=== PATIENT | male | born 1945 | race Caucasian/White ===

== ENCOUNTER 2021-08-10 10:48 | Emergency (ER) | payer OTHER, MEDICARE, BC, SELFPAY ==
--- NOTE | ~2021-08-10 | XR_ITS ---
EXAMINATION: XR hand LT min 3V DATE: 08/10/2021 11:14 INDICATION: Dog bite wound to the left fifth digit TECHNIQUE: Posteroanterior, oblique and lateral views of the left hand were obtained. COMPARISON: None. FINDINGS: Alignment is normal. No fracture. Polyarticular osteoarthritis, severe at the first carpal metacarpal joint, moderate severity at the second and third metacarpophalangeal joints and mild at the distal r adioulnar, wrist, midcarpal, triscaphe and multiple metacarpophalangeal and interphalangeal joints. C ouple likely degenerative loose osteochondral bodies at the palmar recess of the wrist joint and at t he radial and ulnar sides of the first carpometacarpal joint. Soft tissue swelling and associated ski n laceration about the distal aspect of the left fifth distal phalanx. No radiopaque foreign bodies. Soft tissues are unremarkable. IMPRESSION: 1. Soft tissue swelling and laceration at the proximal aspect of the left fifth digit. No acute osseo us abnormality or radiopaque foreign bodies. 2. Polyarticular osteoarthritis at the left hand and wrist, severe at the first carpometacarpal joint , moderate at the second and third metacarpophalangeal joints and otherwise mild. Reviewed, dictated and finalized at location B. IMPRESSION: 1. Soft tissue swelling and laceration at the proximal aspect of the left fifth digit. No acute osseous abnormality or radiopaque foreign bodies. 2. Polyarticular osteoarthritis at the left hand and wrist, severe at the first carpometacarpal joint, moderate at the second and third metacarpophalangeal jeb ints and otherwise mild.
[2021-08-10 10:49] VITALS: BP 150/77; PULSE 85; RESP 18; TEMP 36.2; O2SAT 100
--- NOTE | 2021-08-10 11:02 | ED.ANIMALBIT ---
HPI - Animal Bite General Chief Complaint: Animal Bite Stated Complaint: dog bite Time Seen by Provider: 08/10/21 10:54 History of Present Illness HPI narrative: 76-year-old male presents to the emergency room for evaluation of a dog bite to his left hand. Patient states his neighbors dog bit him in the left hand approximately 1 hour prior to arrival. Patient states the animals vaccinations are up-to-date. Related Data Home Medications Medication Instructions Recorded Confirmed aspirin 81 mg tablet,delayed 81 mg PO DAILY 03/25/20 04/01/21 release multivitamin 1 tablet PO DAILY 03/25/20 04/01/21 omega-3 fatty acids 1,000 mg 1,000 mg PO DAILY 03/25/20 04/01/21 capsule rivaroxaban 20 mg tablet (Xarelto) 20 mg PO DAILY 03/25/20 04/01/21 glucosam 750 mg-chondroi 100 1 tablet PO DAILY 10/06/20 04/01/21 mg-hyalur 1.65 mg-CF borate 108 mg tablet ([email or web address]) Allergies Allergy/AdvReac Type Severity Reaction Status Date / Time No Known Allergies Allergy Unknown Verified 04/01/21 10:04 Review of Systems Review of Systems: CONSTITUTIONAL: Denies fever, chills, or sweats. EYES: Denies visual changes, redness, or discharge. ENT: Denies rhinorrhea, congestion, sore throat, or otalgia. CARDIOVASCULAR: Denies chest pain, palpitations, or edema. RESPIRATORY: Denies cough or dyspnea. GASTROINTESTINAL: Denies abdominal pain, nausea, vomiting, or diarrhea. GENITOURINARY: Denies dysuria or hematuria. SKIN: Reports puncture wounds to left hand, laceration to left fifth digit MUSCULOSKELETAL: Denies back pain, joint pain, or myalgia. NEUROLOGIC: Denies headache, numbness, dizziness, or weakness. PSYCHIATRIC: Denies anxiety or depression. 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 HEAD: Normocephalic, atraumatic. EYES: PERRLA and EOMI. ENT: Nares clear, no rhinorrhea or epistaxis. Mucous membranes moist. Oropharynx without tonsillar hypertrophy exudate or other lesions. Bilateral TMs pearly lee nonbulging NECK: Supple. No adenopathy or masses. No carotid bruits or JVD CHEST: Clear to auscultation. No respiratory distress. No wheezes rales or rhonchi HEART: Regular rate and rhythm. No murmur heard. Normal peripheral pulses. ABDOMEN: Soft, nontender, nondistended, normal active bowel sounds. EXTREMITIES: Normal range of motion. No edema. SKIN: left hand: 4 puncture wounds to the dorsal surface; left 5th finger: 2.5 cm curved laceration to the dorsal surface over the PIP joint, no joint laxity, full range of motion NEURO: No focal deficits. Alert and oriented x3. PSYCH: Normal mood and affect. Course Vital Signs Vital signs: Vital Signs Temperature 36.2 C L 08/10/21 10:49 Pulse Rate 85 08/10/21 10:49 Respiratory Rate 18 08/10/21 10:49 Blood Pressure 150/77 H 08/10/21 10:49 Pulse Oximetry 100 08/10/21 10:49 Oxygen Delivery Room Air 08/10/21 10:49 Temperature 36.2 C L 08/10/21 10:49 Pulse Rate
[2021-08-10] MEDS: LIDOCAINE HCL 1% PF 30 ML VIAL (11:53)
[2021-08-10] MEDS: TETANUS,DIPHTHERIA,AC PERTUSSIS ADULT (0.5 ML) BOOSTRIX IM (12:01)
[2021-08-10 12:29] VITALS: BP 130/90; PULSE 76; RESP 18; O2SAT 99
--- NOTE | 2021-09-16 11:14 | PC.NURSE ---
LATE ENTRY This note is being entered to document information to the patient's record. The following information was omitted on [08/10/2021], by [Lynsey rubin RN]. Location verified to be Left hand injury not right as documented under wound injury assessment
== END 2021-08-10 12:31 | disposition home or self-care (01) ==
PROVIDERS: Emergency Provider Nurse Practitioner Family; PCP Family Medicine
DX: S61.257A Open bite of left little finger without damage to nail, initial encounter (principal); Z23 Encounter for immunization; I48.91 Unspecified atrial fibrillation; I25.10 Atherosclerotic heart disease of native coronary artery without angina pectoris; E78.5 Hyperlipidemia, unspecified; I10 Essential (primary) hypertension; N40.0 Benign prostatic hyperplasia without lower urinary tract symptoms; M19.90 Unspecified osteoarthritis, unspecified site; Z79.82 Long term (current) use of aspirin; Z95.1 Presence of aortocoronary bypass graft; Z87.891 Personal history of nicotine dependence; W54.0XXA Bitten by dog, initial encounter
CPT/HCPCS: 12002; 73130; 90471; 90715; 99283

== ENCOUNTER 2022-01-26 12:33 | Outpatient (CLI) | payer MEDICARE, BC, SELFPAY ==
--- NOTE | ~2022-01-26 | XR_ITS ---
EXAMINATION: XR chest 2V DATE: 01/26/2022 12:52 INDICATION: Cough, unspecified TECHNIQUE: PA and lateral views of the chest are obtained. COMPARISON: 12/16/2008 FINDINGS: There are minimal airspace opacities of the left lung base. No pleural effusion or pneumoth orax. The cardiomediastinal silhouette is normal. There is moderate thoracic spondylosis. Median ster notomy wires and mediastinal surgical clips are seen, likely from prior coronary artery bypass grafti ng. Cardiac valve repair is also noted. IMPRESSION: 1. Left basilar airspace opacity, likely atelectasis. Reviewed, dictated and finalized at location B. EACH LIBRARIAN
== END 2022-01-26 12:34 | disposition home or self-care (01) ==
PROVIDERS: PCP Family Medicine; Visit Provider Nurse Practitioner
DX: R05.9 Cough, unspecified (principal); R91.8 Other nonspecific abnormal finding of lung field
CPT/HCPCS: 71046

== ENCOUNTER 2022-01-26 12:58 | Outpatient (CLI) | payer MEDICARE, BC, SELFPAY ==
--- NOTE | 2022-01-26 14:08 | ECG_ITS ---
Measurements Intervals [place] Rate: 69 P: [place]: 0 QRS: -32 QRSD: 118 T: 68 QT: 414 QTc: 446 Interpretive Statements ATRIAL FLUTTER/TACHYCARDIA LEFT AXIS DEVIATION INCOMPLETE RIGHT BUNDLE BRANCH BLOCK DELAYED PRECORDIAL R/S TRANSITION BORDERLINE ST-T WAVE ABNORMALITY- HIGH LATERAL LEADS BASELINE ARTIFACT- I, II, III, AVR, AVL, AVF ABNORMAL ECG NO PREVIOUS ECG AVAILABLE FOR COMPARISON Electronically Signed On 01-26-2022 14:30:55 HOUSEKEEPING ROOM ATTENDANT by Mitch Ann D.O.
[2022-01-26 14:34] LABS: Hematocrit 48.9 % (42.0-52.0); Hemoglobin 15.7 g/dL (14.0-18.0); Mean Corpuscular HGB Conc 32.1 g/dl (32-36); Mean Corpuscular Hemoglobin 29.2 pg (26-34); Mean Corpuscular Volume 91.1 fl (80-100); Mean Platelet Volume 10.3 fl (7.4-10.4); Platelet Count Result 217 k/mm3 (150-375); Red Blood Count 5.37 M/mm3 (4.6-6.20); Red Cell Distribution Width 13.6 % (11.5-14.5)
[2022-01-26 14:38] LABS: Albumin Level 4.6 g/dL (3.5-5.1); Anion Gap 11 mmol/L (8-16); Blood Urea Nitrogen 17 mg/dL (9-20); Calcium 9.1 mg/dL (8.4-10.2); Carbon Dioxide 27 mmol/L (22-30); Chloride 100 mmol/L (98-107); Estimated Glomerular Filt Rate > 60; Glucose 91 mg/dL (65-110); Potassium 4.5 mmol/L (3.4-5.0); Sodium 138 mmol/L (137-145)
[2022-01-26 14:40] LABS: Urine Cotinine NEGATIVE
[2022-01-26 14:42] LABS: Hemoglobin A1C 5.7 % (<5.7)
[2022-01-26 15:23] LABS: Basophils Absolute Manual 0.07 K/mm3 (0.0-0.1); Basophils Percent Manual 1 % (0-1); Eosinophils Absolute Manual 1.12 K/mm3 (0.02-0.5); Eosinophils Percent Manual 16 % (0-4); Monocytes Absolute Manual 0.91 K/mm3 (0.1-0.90); Monocytes Percent Manual 13 % (3-9); Neutrophils Percent Manual 50 % (46-73); Total Cells Counted 100
[2022-01-26 15:24] LABS: Platelet Estimate Adequate (Adequate); Schistocytes None Seen (NORMAL)
== END 2022-01-26 12:59 | disposition home or self-care (01) ==
LOC: ANHSURGERY 13:03
PROVIDERS: PCP Family Medicine; Visit Provider Orthopaedic Surgery
DX: M19.90 Unspecified osteoarthritis, unspecified site (principal); I10 Essential (primary) hypertension; Z01.818 Encounter for other preprocedural examination; I45.10 Unspecified right bundle-branch block
CPT/HCPCS: 71046; 80048; 80307; 82040; 83036; 85025; 87081; 93005

== ENCOUNTER 2022-02-23 09:16 | Outpatient (CLI) | payer MEDICARE, BC, SELFPAY | END 2022-02-23 09:17 | disposition home or self-care (01) | PROVIDERS: PCP Family Medicine; Visit Provider Orthopaedic Surgery | DX: M17.11 Unilateral primary osteoarthritis, right knee (principal); Z01.818 Encounter for other preprocedural examination | CPT/HCPCS: 36415; 86850; 86900; 86901 ==

== ENCOUNTER 2022-03-02 01:38 | Day surgery (SDC) | payer MEDICARE, BC, SELFPAY ==
[2022-01-26 13:26] VITALS: BP 139/70; PULSE 79; RESP 16; TEMP 36.5; O2SAT 99; BMI 30.9
--- NOTE | 2022-01-26 13:42 | PC.NURSE ---
Report to the Outpatient Waiting Room, entrance under the green pavilion located off [facility], at time _0600_ on date _[id number]_. Planned Procedure Time: _0730_. Time changes happen often and if your time is changed the preop area will call you the afternoon before. - You and your visitor will be asked to self-screen and do not enter if you have any COVID symptoms. - We encourage only one visitor and NO visitors under age 16 are allowed at this time. Your visitor will receive communication by the phone number that is given day of service. - The patient visitor is requested to social distance or may leave the building when not with patient due to restrictions. - A mask is required within the hospital. Patients may have clear liquids (water, carbonated beverages, clear teas, apple juice) until 3 hours prior to surgery with a maximum of 20 ounces. - No food from midnight until time of surgery Take the following medications with a SIP of water the morning of surgery: None Medications to discontinue per physician __All vitamins and supplements Date to take last ysym___[id number] Stop Xarelto 02-04-2022 Please no make-up, nail hong konger, hairspray, perfume, deodorant, or body powder the day of surgery. No jewelry (including any body piercings) or valuables the day of surgery, leave them at home. Please take a shower or bath the night before, or the morning of, surgery with an antibacterial soap. Wear comfortable, loose fitting clothing. - Jewelry must be removed prior to entering the operating room. Rings and piercings that are not removed may be cut off. - The hospital will not accept responsibility for valuables. - Please leave all valuables, including medications, at home the day of surgery. If you are going home after surgery, a licensed deliver driver must drive you home. - NO public transportation without another adult. - We recommend that an adult stay with you for 24 hours following discharge. - We also recommend that you do not drive, make important decision, drink alcoholic beverages, or take any drugs that were not prescribed by your health care provider for at least 24 hours after your discharge time. Follow any additional instructions given to you from your surgeon. If you or anyone in your household have experienced Covid symptoms in the past week, please notify your surgeon or the nurse liaison at the phone number below for possible testing. Telephone instructions given to _Patient___and asked if any additional questions and then verbalized understanding. Patient advised to call surgeon office or pre surgery nurse liaison [phone] if any additional questions.
--- NOTE | 2022-01-26 14:15 | PC.NURSE ---
Encouraged patient to call Heart doctor and OK stopping Xarelto 5 days before surgery as instructed and to notify Dr Holman's office if this is a problem.
--- NOTE | 2022-02-16 11:41 | PC.NURSE ---
Report to the Outpatient Waiting Room, entrance under the green pavilion located off [address], at [id number] on date __02/25/22 . Planned Procedure Time: __1200 . Time changes happen often and if your time is changed the preop area will call you the afternoon before. - You and your visitor will be asked to self-screen and do not enter if you have any COVID symptoms. - Only one visitor is requested with a max of two and NO children visitors are allowed at this time. - The patient visitor may be requested to leave or wait in car when not with patient due to distancing restrictions. - A mask is optional within the hospital. Patients may have clear liquids (water, carbonated beverages, clear teas, apple juice) until 3 hours prior to surgery with a maximum of 20 ounces. - No food from midnight until time of surgery - Infants may have breast milk until 4 hours before surgery, formula 6 hours prior to surgery. - Children will be allowed to drink immediately following surgery. If applicable, please bring a bottle or sippy cup to assist with drinking. Juice, water, soda, and popsicles are readily available. For infants on formula, please bring formula the day of surgery. Pacifiers are allowed. Take the following medications with a SIP of water the morning of surgery: ___NONE Medications to discontinue per physician ASPIRIN 5 DAYS PRE OP PER DR LOZANO AND XARELTO 3 DAYS PRE OP PER DR LOZANO. ALL VITAMINS AND SUPPLEMENTS 3 DAYS PRE OP Date to take last dose_ASPIRIN 02/19/22 XARELTO AND VIT/SUPP 02/21/22 TOTAL JOINT CLASS 02/23/22 AT 10 AM Please no make-up, nail sierra le[place]an, hairspray, perfume, deodorant, or body powder the day of surgery. No jewelry (including any body piercings) or valuables the day of surgery, leave them at home. Please take a shower or bath the night before, or the morning of, surgery with an antibacterial soap. Wear comfortable, loose fitting clothing. Children are encouraged to wear pajamas. - Jewelry must be removed prior to entering the operating room. Rings and piercings that are not removed may be cut off. - The hospital will not accept responsibility for valuables. - Please leave all valuables, including medications, at home the day of surgery. If you are going home after surgery, a licensed special education bus driver must drive you home. - NO public transportation without another adult if you receive anesthesia. - We recommend that an adult stay with you for 24 hours following discharge. - We also recommend that you do not drive, make important decision, drink alcoholic beverages, or take any drugs that were not prescribed by your health care provider for at least 24 hours after your discharge time. For Pediatric surgeries, we recommend two adults accompany the child home. Follow any additional instructions given to you from your surgeon. If you or anyone in your household have experienced Covid symptoms in the past week, please notify your surgeon or the nurse liaison at the phone number below for possible testing. Telephone instructions given to and asked if any additional questions and then verbalized understanding. Patient advised to call surgeon office or pre surgery nurse liaison [phone] if any additional questions.
--- NOTE | 2022-02-16 11:54 | PC.NURSE ---
PT STATES NO CHANGE IN HEALTH HX SINCE LAST INTERVIEW ON 01/26/22
--- NOTE | 2022-02-22 15:13 | PM.IMHP ---
H&P: HPI History of Present Illness Date/Time: 02/22/22 15:13 Chief Complaint: The patient is a 76-year-old male who sees Dr. Holman regarding his right knee. The patient has a chronic ongoing history of pain localized to the right knee this is due to primary osteoarthritis. He has aching pain worse with activity somewhat relieved by rest. The patient has startup pain rest pain and night pain cannot stand or walk for long periods. Notes mechanical symptoms occasional swelling over the years he has tried conservative measures including cortisone gel shots therapy and anti-inflammatory medication without significant long-term relief. X-rays do show advanced primary osteoarthritis which is near [id number] in the medial and patellofemoral compartments. At this point the patient has discussed further treatment options in detail with Dr. Holman he would now like to proceed with a right total knee arthroplasty. Review of Systems Review of Systems: [place] review of systems otherwise negative [facility] Past Medical History Medical History Atrial fibrillation BPH (benign prostatic hyperplasia) CAD in [place] artery Dyslipidemia Environmental allergies Essential (primary) hypertension Osteoarthritis Surgical History Surgical History History of arthroscopy of right knee 1990s - Meniscus repair 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 History of exploratory laparotomy 1980s History of mitral valve repair Family History Family History Sibling Depression Mother Hypertension Father Cerebrovascular accident Family history of malignant neoplasm Social History Social History Social History: Caffeine-coffee Smoking packs per day: 1 Smoking cigarettes per day: 20.0 Years smoked: 16 Smoking pack-years: 16.00 Smoking status: Former smoker Tobacco type: cigarettes Smokeless tobacco user: chewing tobacco Second hand tobacco smoke exposure: No Smoking end date: 01/26/82 Additional smoking assessment comments: Lip tobacco 16 years after quit smoking. Alcohol intake: current Drinks per week: 1 Alcohol use details: occasionally Substance use: never Substance use type: does not use Gender identity (if verbalized by the patient): Male Sexual Orientation (if Verbalized by the Patient): Straight or Heterosexual Spiritual care concerns: No Meds Home Medications and Allergies Home Medications Medication Instructions Recorded Confirmed Type aspirin 81 mg tablet,delayed 81 mg PO DAILY 03/25/20 02/16/22 History release multivitamin 1 tablet PO DAILY 03/25/20 02/16/22 History omega-3 fatty acids 1,000 mg 1,000 mg PO DAILY 03/25/20 02/16/22 History capsule rivaroxaban 20 mg tablet (Xarelto) 20 mg PO DAILY 03/25/20 02/16/22 History glucosam 750 mg-chondroi 100 1 tablet PO DAILY 10/06/20 02/16/22 History mg-hyalur 1.65 mg-CF borate 108 mg tablet ([employer]) tamsulosin 0.4 mg capsule (Flomax) 0.4 mg PO DAILY #90 caps 08/18/21 02/16/22 Rx dutasteride 0.5 mg capsule 0.5 mg PO DAILY 09/30/21 02/16/22 History potassium citrate 99 mg capsule 99 mg PO DAILY 09/30/21 02/16/22 History losartan 50 mg tablet 50 mg PO DAILY #90 tabs 12/08/21 02/16/22 Rx atorvastatin 20 mg tablet 20 mg PO QHS #90 tabs 12/16/21 02/16/22 Rx acetaminophen 325 mg tablet 650 mg PO QAM 01/26/22 02/16/22 History fluticasone propionate 50 2 spray intranasal DAILY #16 grams 01/27/22 02/16/22 Rx mcg/actuation nasal spray,suspension (Flonase Allergy Relief) loratadine 10 mg tablet (Claritin) 10 mg PO DAILY #90 tabs 01/27/22 02/16/22 Rx Allergies Allergy/AdvReac Type Severity Reaction Status Date / Time No Known Allergies Allergy Unknown Verified 02/16/22 11:37 Exam Mason
--- NOTE | 2022-02-25 10:13 | PC.NURSE ---
Report to the Outpatient Waiting Room, entrance under the green pavilion located off [facility], at time __10:00am on date _03/02/22 . Planned Procedure Time: __12:00pm . Time changes happen often and if your time is changed the preop area will call you the afternoon before. - You and your visitor will be asked to self-screen and do not enter if you have any COVID symptoms. - Only one visitor is requested with a max of two and NO children visitors are allowed at this time. - The patient visitor may be requested to leave or wait in car when not with patient due to distancing restrictions. - A mask is optional within the hospital. Patients may have clear liquids (water, carbonated beverages, clear teas, apple juice) until 3 hours prior to surgery with a maximum of 20 ounces. - No food from midnight until time of surgery Take the following medications with a SIP of water the morning of surgery: ____NONE Medications to discontinue per physician ___HOLD ASPIRIN PER DR LOZANO 5 DAYS PRE-OP- LAST DOSE 02/24/22, XERALTO 3 DAYS PRE-OP PER DR LOZANO- LAST DOSE 02/26/22, HOLD ALL VITAMINS/SUPPLEMENTS 3 DAYS PRE-OP- LAST DOSE 02/26/22 Please no make-up, nail [place]er, hairspray, perfume, deodorant, or body powder the day of surgery. No jewelry (including any body piercings) or valuables the day of surgery, leave them at home. Please take a shower or bath the night before, or the morning of, surgery with an antibacterial soap. Wear comfortable, loose fitting clothing. Children are encouraged to wear pajamas. - Jewelry must be removed prior to entering the operating room. Rings and piercings that are not removed may be cut off. - The hospital will not accept responsibility for valuables. - Please leave all valuables, including medications, at home the day of surgery. If you are going home after surgery, a licensed patrol driver must drive you home. - NO public transportation without another adult if you receive anesthesia. - We recommend that an adult stay with you for 24 hours following discharge. - We also recommend that you do not drive, make important decision, drink alcoholic beverages, or take any drugs that were not prescribed by your health care provider for at least 24 hours after your discharge time. Follow any additional instructions given to you from your surgeon. If you or anyone in your household have experienced Covid symptoms in the past week, please notify your surgeon or the nurse liaison at the phone number below for possible testing. Telephone instructions given to _PATIENT and asked if any additional questions and then verbalized understanding. Patient advised to call surgeon office or pre surgery nurse liaison [phone] if any additional questions.
--- NOTE | 2022-02-25 10:16 | PC.NURSE ---
PATIENT RESCHEDULED R/T HIGH CENSUS ON FLOOR/NO BED AVAILABLE. PT DENIES ANY CHANGE IN MEDS, ALLERGIES OR PMH. PRE-OP INSTRUCTIONS GIVEN, PT RELAYS UNDERSTANDING.
--- NOTE | 2022-03-01 13:35 | WPDANESEPPF ---
Anes - Initial Pre Proc Eval Procedure: Operation Date: 03/02/22 12:00 Proposed Procedures p Right Total Knee Arthroplasty - Steve Holman MD Date/Time: 03/01/22 13:35 Surgeon: Steve Holman MD Pre Op Diagnosis: O.A. Right Knee Patient Data Age: 76 Gender: M Height: 1.83 m Weight: 103.4 kg Last Vital Signs Temp 36.5 C 01/26/22 13:26 Pulse 79 01/26/22 13:26 Resp 16 01/26/22 13:26 BP 139/70 01/26/22 13:26 Pulse Ox 99 01/26/22 13:26 O2 Del Method Room Air 01/26/22 13:26 Allergies Allergy/AdvReac Type Severity Reaction Status Date / Time No Known Allergies Allergy Unknown Verified 02/25/22 10:06 Home Medications Medication Instructions Recorded Confirmed Type aspirin 81 mg tablet,delayed 81 mg PO DAILY 03/25/20 02/25/22 History release multivitamin 1 tablet PO DAILY 03/25/20 02/25/22 History omega-3 fatty acids 1,000 mg 1,000 mg PO DAILY 03/25/20 02/25/22 History capsule rivaroxaban 20 mg tablet (Xarelto) 20 mg PO DAILY 03/25/20 02/25/22 History glucosam 750 mg-chondroi 100 1 tablet PO DAILY 10/06/20 02/25/22 History mg-hyalur 1.65 mg-CF borate 108 mg tablet ([email or web address]) tamsulosin 0.4 mg capsule (Flomax) 0.4 mg PO DAILY #90 caps 08/18/21 02/25/22 Rx dutasteride 0.5 mg capsule 0.5 mg PO DAILY 09/30/21 02/25/22 History potassium citrate 99 mg capsule 99 mg PO DAILY 09/30/21 02/25/22 History losartan 50 mg tablet 50 mg PO DAILY #90 tabs 12/08/21 02/25/22 Rx atorvastatin 20 mg tablet 20 mg PO QHS #90 tabs 12/16/21 02/25/22 Rx acetaminophen 325 mg tablet 650 mg PO QAM 01/26/22 02/25/22 History fluticasone propionate 50 2 spray intranasal DAILY #16 grams 01/27/22 02/25/22 Rx mcg/actuation nasal spray,suspension (Flonase Allergy Relief) loratadine 10 mg tablet (Claritin) 10 mg PO DAILY #90 tabs 01/27/22 02/25/22 Rx ECG: Date of Service: 01/26/22 Procedure(s): CA 12 lead EKG Accession Number(s): [id number] cc: ~ ? Measurements Intervals? [place]? Rate: ? 69 ? P:? [place]: ? 0? QRS:? -32 QRSD: ? 118? T:? 68 QT: ? 414? QTc:? 446? Interpretive Statements ATRIAL FLUTTER/TACHYCARDIA LEFT AXIS DEVIATION INCOMPLETE RIGHT BUNDLE BRANCH BLOCK DELAYED PRECORDIAL R/S TRANSITION BORDERLINE ST-T WAVE ABNORMALITY- HIGH LATERAL LEADS BASELINE ARTIFACT- I, II, III, AVR, AVL, AVF ABNORMAL ECG NO PREVIOUS ECG AVAILABLE FOR COMPARISON Electronically Signed On 01-26-2022 14:30:55 EXCELLENCE COACH by Mitch Ann D.O. Results Review: All pre-operative results and documents have been reviewed as part of the pre-operative evaluation. [facility] Past Medical History Medical History Atrial fibrillation BPH (benign prostatic hyperplasia) CAD in [place] artery Dyslipidemia Environmental allergies Essential (primary) hypertension Osteoarthritis Surgical History Surgical History History of arthroscopy of right knee 1990s - Meniscus repair 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 History of exploratory laparotomy 1980s History of mitral valve repair Family History Family History Sibling Depression Mother Hypertension Father Cerebrovascular accident Family history of malignant neoplasm Social History Social History Social History: Caffeine-coffee Smoking packs per day: 1 Smoking cigarettes per day: 20.0 Years smoked: 16 Smoking pack-years: 16.00 Smoking status: Former smoker Tobacco type: cigarettes Smokeless tobacco user: chewing tobacco Second
--- NOTE | 2022-03-01 13:37 | WPDANESPNB ---
Anes - Peripheral Nerve Block Date/Time: 03/01/22 13:37 I have discussed with the patient/family/POA the placement of a peripheral nerve block for post-operative pain management, including associated risks, benefits, complications, and side effects. Alternative methods of post-operative analgesia were detailed. Questions were solicited and answers provided to the satisfaction of the patient/family/POA. Time-Out: A pre-procedural Time-Out was completed immediately before starting the procedure and confirmed: Patient Identification, Site, Procedure, Patient Position and the Availability of Requisite Equipment. Clinical Indications: Acute post-operative pain management requested by the operative surgeon. Nerve Block Insertion Note Anes-nerve block: adductor canal Patient position: supine Skin prep: chlorhexidine Needle: 22 gauge, stimulating, insulated echogenic needle. Needle length: 80 mm Technique: ultrasound Technique comment: in plane Injectate: bupivacaine 0.25% with epi 5 mcg/ml (30cc) Observations: tolerated well Complications: none
--- NOTE | 2022-03-02 06:55 | WPDHPUPDATE1 ---
History and Physical Update Update Date/Time: 03/02/22 06:55 History and Physical has been reviewed, including an updated exam of the patient. There are NO changes in the patient's condition. Risks, benefits, and alternatives have been discussed and questions answered. Patient agrees to proceed with procedure.
[2022-03-02] MEDS: ACETAMINOPHEN 500 MG TABLET 1000 MG PO (10:36)
[2022-03-02] MEDS: LACTATED RINGERS 1,000 ML 30 ML IV CONT (10:42)
[2022-03-02] MEDS: TRANEXAMIC ACID 1,000MG/ISO100 1,000 MG/100 ML BAG 200 MG IVPB (10:49)
--- NOTE | 2022-03-02 11:02 | SUR.PREOP ---
1100 dr kunz notified pt last took anticoagulant 3 weeks ago., attempted to call [facility] ,closed for lunch. dr kunz talking to pt about the medication .dr hoffmann talked to pt and anticoagulant medication and need to cancel surgery.
--- NOTE | 2022-03-02 11:18 | SUR.PREOP ---
Dr Clement and Dr Holman discussed since patient has not been off anticoagulant for a extended period of time he will be rescheduled until better management, both providers spoke to patient and family and understanding stated by all.
== END 2022-03-02 11:35 | disposition home or self-care (01) ==
PROVIDERS: PCP Family Medicine; Visit Provider Orthopaedic Surgery
PROC: (CPT 27447; principal; 2022-03-02 12:00)
DX: M17.11 Unilateral primary osteoarthritis, right knee (principal); Z53.09 Procedure and treatment not carried out because of other contraindication
CPT/HCPCS: 99213; A9270; G0463; J1885; J2270; J2795; J3370; J7120

== ENCOUNTER 2022-03-03 11:36 | Emergency (ER) | payer MEDICARE, BC, SELFPAY ==
--- NOTE | ~2022-03-03 | XR_ITS ---
Portable chest x-ray Comparison: 01/26/2022 Clinical History: Syncope Findings: Lungs are clear, without focal consolidation or pleural effusion. Cardiomediastinal silho uette is stable, status post mitral valve replacement. Bones and soft tissues are unremarkable. Impression: Clear lungs. Reviewed, dictated and finalized at location [] S PRODUCER Impression: Clear lungs.
--- NOTE | ~2022-03-03 | CT_ITS ---
EXAMINATION: CT brain wo con DATE: 03/03/2022 12:28 INDICATION: Syncope. TECHNIQUE: Computed tomography (CT) of the head was performed without intravenous contrast. The mA wa s adjusted according to patient size. Iterative reconstruction technique was employed. The dose-lengt h product was 605.33 mGy-cm. COMPARISON: None FINDINGS: There are scattered areas of low attenuation in the cerebral white matter, which is within normal limits for the patient's age. There is no intracranial hemorrhage, acute infarction, or abnorm al intracranial mass lesion. The ventricles are normal in size. There is mild mucosal thickening in t he paranasal sinuses. The mastoid air cells are normal. IMPRESSION: 1. Normal aging brain. Reviewed, dictated and finalized at location [facility]. LE INSTALLATION HELPER IMPRESSION: 1. Normal aging brain.
--- NOTE | 2022-03-03 11:52 | ECG_ITS ---
Measurements Intervals [place] Rate: 61 P: [place]: 0 QRS: -14 QRSD: 129 T: -24 QT: 457 QTc: 462 Interpretive Statements ATYPICAL ATRIAL FLUTTER POSSIBLE RIGHT VENTRICULAR CONDUCTION DELAY [RSR (QR) IN V1/V2] POOR R-WAVE PROGRESSION COMPARED TO ECG 01/26/2022 14:26:20 NO SIGNIFICANT CHANGE Electronically Signed On 03-03-2022 20:08:23 INSULATION TECHNICIAN by Tara Cuba M.D.
[2022-03-03 12:00] VITALS: PULSE 63
[2022-03-03 12:10] LABS: Basophils Absolute Auto 0.06 K/mm3 (0.00-0.10); Basophils Percent Auto 0.8 % (0.0-1.0); Eosinophils Absolute Auto 0.15 K/mm3 (0.02-0.50); Eosinophils Percent Auto 2.1 % (1.0-6.0); Hematocrit 49.1 % (37.0-46.0); Immature Granulocyte Absolute 0.03 K/mm3 (0.00-0.00); Immature Granulocyte Percent A 0.4 % (0.0-0.0); Lymphocytes Absolute Auto 1.21 K/mm3 (1.10-4.50); Lymphocytes Percent Auto 17.1 % (18.0-42.0); Mean Corpuscular HGB Conc 32.6 g/dL (32.0-36.0); Mean Corpuscular Hemoglobin 29.8 pg (27.0-31.0); Mean Corpuscular Volume 91.4 fL (78.0-102.0); Mean Platelet Volume 10.1 fl (8.7-11.0); Monocytes Absolute Auto 0.75 K/mm3 (0.10-0.90); Monocytes Percent Auto 10.6 % (2.0-11.0); Neutrophils Absolute Auto 4.9 K/mm3 (1.7-7.2); Platelet Count Result 225 K/mm3 (150-420); Red Blood Count 5.37 M/mm3 (4.70-6.10); Red Cell Distribution Width 13.5 % (11.6-14.4); White Blood Count 7.1 K/mm3 (4.8-10.8)
[2022-03-03 12:25] LABS: D Dimer 0.19 mg/L (0.19-0.50); INR 1.2; Prothrombin Time 12.5 Seconds (9.50-12.10)
[2022-03-03 12:35] LABS: Alanine Aminotransferase 20 U/L (16-63); Alkaline Phosphatase 102 U/L (46-116); Anion Gap 7 mmol/L (8-16); Aspartate Amino Transferase 22 U/L (15-37); Bilirubin,Total 0.8 mg/dL (0.00-1.00); Blood Urea Nitrogen 19 mg/dL (7-18); Calcium 9.3 mg/dL (8.5-10.1); Carbon Dioxide 29 mmol/L (21-32); Chloride 102 mmol/L (98-108); Estimated Glomerular Filt Rate > 60; Glucose 125 mg/dL (70-99); NT Pro B Type Natriuretic Pept 336 pg/mL (0-450); Osmolality Calculated 289 mOsm/kg (285-295); Potassium 4.2 mmol/L (3.5-5.1); Sodium 138 mmol/L (136-145); Total Protein 7.9 g/dL (6.4-8.2); Troponin I 11.9 ng/L (0.00-60.4)
[2022-03-03 12:36] LABS: CRP < 0.5 mg/dL (0.0-0.9)
[2022-03-03 12:37] LABS: Lactic Acid Reflex 2.2 mmol/L (0.4-2.0)
--- NOTE | 2022-03-03 13:06 | ED.SYNCOPE ---
HPI - Syncope General Stated Complaint: ambulance Time Seen by Provider: 03/03/22 11:51 Source: patient and family Mode of arrival: ambulatory Limitations: no limitations History of Present Illness HPI narrative: This is a 76-year-old gentleman with a history of atrial fibrillation hypertension was scheduled to have knee surgery and had his medication on hold the patient did not go through surgery and was sent home and knots restart his medication since the end of January, patient did start his medication back yesterday, and this morning had syncopal episode x2 currently he is comfortable with no fever chills no shortness of breath no chest pain no headache does have nausea with no episodes of vomiting no abdominal pain no dysuria or flank pain. complaint: felt faint Onset (ago): hour(s) Related Data Home Medications Medication Instructions Recorded Confirmed aspirin 81 mg tablet,delayed 81 mg PO DAILY 03/25/20 03/02/22 release multivitamin 1 tablet PO DAILY 03/25/20 03/02/22 omega-3 fatty acids 1,000 mg 1,000 mg PO DAILY 03/25/20 03/02/22 capsule rivaroxaban 20 mg tablet (Xarelto) 20 mg PO DAILY 03/25/20 03/02/22 glucosam 750 mg-chondroi 100 1 tablet PO DAILY 10/06/20 03/02/22 mg-hyalur 1.65 mg-CF borate 108 mg tablet ([employer]) dutasteride 0.5 mg capsule 0.5 mg PO DAILY 09/30/21 03/02/22 potassium citrate 99 mg capsule 99 mg PO DAILY 09/30/21 03/02/22 acetaminophen 325 mg tablet 650 mg PO QAM 01/26/22 03/02/22 loratadine 10 mg tablet (Claritin) 10 mg PO PRN 03/02/22 03/02/22 Allergies Allergy/AdvReac Type Severity Reaction Status Date / Time Beta-Blockers AdvReac Severe Other Verified 03/02/22 10:34 (Beta-Adrenergic Bloc Review of Systems Review of Systems: All systems reviewed & are unremarkable except as noted in HPI and below PMFSH Past Medical History Medical History Atrial fibrillation BPH (benign prostatic hyperplasia) CAD in [place] artery Dyslipidemia Environmental allergies Essential (primary) hypertension Osteoarthritis Surgical History Surgical History History of arthroscopy of right knee - Meniscus repair 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 History of exploratory laparotomy History of mitral valve repair Family History Family History Sibling Depression Mother Hypertension Father Cerebrovascular accident Family history of malignant neoplasm Social History Social History Social History: Caffeine-coffee Smoking packs per day: 1 Smoking cigarettes per day: 20.0 Years smoked: 16 Smoking pack-years: 16.00 Smoking status: Former smoker Tobacco type: cigarettes Smokeless tobacco user: chewing tobacco Second hand tobacco smoke exposure: No Smoking end date: 01/26/82 Additional smoking assessment comments: Lip tobacco 16 years after quit smoking. Alcohol intake: current Drinks per week: 1 Alcohol use details: occasionally Substance use: never Substance use type: does not use Gender identity (if verbalized by the patient): Male Sexual Orientation (if Verbalized by the Patient): Straight or Heterosexual Spiritual care concerns: No Exam Const: General: healthy appearing Nutritional Appearance: well nourished Orientation/consciousness: patient oriented x3 Limitations: no limitations HENMT: Head: normal to inspection Face/Nose/Sinus: Normal external nose present Face and sinus: normal facial exam Mouth: Yes Normal oral and palatal mucosa present Eyes: Conjunctivae: conjunctivae normal EOM: EOMs intact bilaterally Direct Ophthalmoscopy: no photophobia Chest: Chest palpation & inspection: normal inspection of the chest Resp: Effort & Inspection: normal respiratory e
[2022-03-03 13:10] VITALS: BP 119/70; PULSE 60; RESP 15; TEMP 36.1; O2SAT 98
[2022-03-03 13:11] VITALS: BP 128/69; PULSE 63; RESP 20; TEMP 36.6; O2SAT 100
[2022-03-03 13:16] VITALS: O2SAT 100
[2022-03-03 13:44] VITALS: BP 122/67; PULSE 60; RESP 20; TEMP 36.9; O2SAT 98
[2022-03-03 15:08] LABS: Reflex Lactic Acid Yes or No Add Lactic
== END 2022-03-03 13:38 | disposition home or self-care (01) ==
PROVIDERS: Emergency Provider Emergency Medicine; PCP Family Medicine
DX: R55 Syncope and collapse (principal); I48.91 Unspecified atrial fibrillation; I25.10 Atherosclerotic heart disease of native coronary artery without angina pectoris; I10 Essential (primary) hypertension; E78.5 Hyperlipidemia, unspecified; Z79.82 Long term (current) use of aspirin; Z87.891 Personal history of nicotine dependence; Z79.01 Long term (current) use of anticoagulants
CPT/HCPCS: 36415; 70450; 71045; 80053; 83605; 83735; 83880; 84484; 85025; 85380; 85610; 85730; 86140; 93005; 99284

== ENCOUNTER 2022-06-25 08:12 | Emergency (ER) | payer MEDICARE, BC, SELFPAY ==
--- NOTE | ~2022-06-25 | CT_ITS ---
EXAMINATION: CT abdomen pelvis w con DATE: 06/25/2022 09:40 INDICATION: Blood in stool for 2 days. Diarrhea. History of diverticulitis and gastrointestinal bleed ing TECHNIQUE: Computed tomography (CT) of the abdomen and pelvis was performed with 100 CC Omnipaque 350 intravenous contrast. Automated exposure control and iterative reconstruction technique were employe d. Exam dose: 1291.00 mGy-cm total exam DLP. COMPARISON: 12/17/2018 CT abdomen pelvis FINDINGS: Status post mitral valve replacement. The lung bases are clear. No pericardial or pleural effusion. Small sliding hiatal hernia. 1.8 cm hepatic cyst. The liver, gallbladder, bile ducts, pancreas, pancreatic duct and spleen are oth erwise unremarkable. Normal morphology of the adrenal glands. 1.6 cm right renal cyst. The kidneys are otherwise unremarkable. No urinary tract calculus or hydrour eteronephrosis. Mild prostate enlargement. Prostate calcifications. The urinary bladder is unremarkab le. Mild bilateral fat containing inguinal hernias and small fat-containing umbilical hernia. There is prominent atherosclerotic calcification at the origins of both renal arteries. Normal calibe r of the abdominal aorta. No intraperitoneal or retroperitoneal or pelvic mass lesion or adenopathy o r ascites. There are innumerable diverticula throughout the colon. No bowel obstruction, bowel wall thickening, pneumatosis or intraperitoneal free air. No CT evidence of appendicitis is noted. Degenerative changes of the thoracic and lumbar spine. No suspicious osteolytic or osteoblastic lesio ns are noted. IMPRESSION: Extensive diverticulosis of left and right colon; no CT evidence of diverticulitis Small sliding hiatal hernia 1.8 cm hepatic cyst 1.6 cm right renal cyst Status post mitral valve replacement Reviewed, dictated and finalized at [facility]. Reviewed, dictated and finalized at location [facility]. IMPRESSION: Extensive diverticulosis of left and right colon; no CT evidence o f diverticulitis Small sliding hiatal hernia 1.8 cm hepatic cyst 1.6 cm right renal cyst Status post mitral valve replacement
[2022-06-25 08:13] VITALS: BP 110/90; PULSE 112; RESP 16; TEMP 36.8; O2SAT 95
[2022-06-25 08:30] LABS: Basophils Absolute Auto 0.1 K/mm3 (0.0-0.1); Basophils Percent Auto 0.7 % (0.2-1.2); Eosinophils Absolute Auto 0.1 K/mm3 (0-0.3); Eosinophils Percent Auto 0.9 % (0-4.4); Hematocrit 45.5 % (42.0-52.0); Hemoglobin 14.6 g/dL (14.0-18.0); Immature Granulocyte Absolute 0.03 K/mm3 (0.00-0.031); Immature Granulocyte Percent A 0.3 % (0-0.5); Lymphocytes Absolute Auto 1.51 K/mm3 (0.9-3.2); Lymphocytes Percent Auto 16.1 % (18.3-44.2); Mean Corpuscular HGB Conc 32.1 g/dl (32-36); Mean Corpuscular Hemoglobin 29.6 pg (26-34); Mean Corpuscular Volume 92.3 fl (80-100); Mean Platelet Volume 10.7 fl (7.4-10.4); Monocytes Absolute Auto 1.2 K/mm3 (0.1-0.6); Monocytes Percent Auto 12.8 % (2.6-8.5); Neutrophils Absolute Auto 6.5 K/mm3 (1.3-6.7); Neutrophils Percent Auto 69.2 % (45.5-73.1); Platelet Count Result 220 k/mm3 (150-375); Red Blood Count 4.93 M/mm3 (4.6-6.20); Red Cell Distribution Width 13.6 % (11.5-14.5); White Blood Count 9.4 K/mm3 (4.5-10.0)
[2022-06-25 08:42] LABS: INR 1.5; Prothrombin Time 17.9 Seconds (11.1-14.7)
--- NOTE | 2022-06-25 08:42 | ED.GENADULT ---
HPI - General Adult General Chief complaint: GI Bleed Stated complaint: blood in stool, states diverticulitis Time Seen by Provider: 06/25/22 08:18 History of Present Illness HPI narrative: 77-year-old male presenting to the ED for evaluation of a GI bleed. Patient states yesterday he was having some maroon-colored stools multiple times throughout the day then the symptoms stopped yesterday. Patient reports this morning when he went to have a bowel movement that the bleeding restarted. Patient does take Xarelto for atrial fibrillation. Patient does have a prior history of GI bleed approximately 8 years ago. Patient states he has needed prior blood transfusions. Patient states he has had issues with diverticulitis previously. Patient does have increased abdominal pressure. Patient denies any associated chest pain or shortness of breath. Patient denies any nausea vomiting or fevers. Previously patient had follow-up with Dr. Lindsey for GI Related Data Home Medications Medication Instructions Recorded Confirmed aspirin 81 mg tablet,delayed 81 mg PO DAILY 03/25/20 03/02/22 release multivitamin 1 tablet PO DAILY 03/25/20 03/02/22 omega-3 fatty acids 1,000 mg 1,000 mg PO DAILY 03/25/20 03/02/22 capsule rivaroxaban 20 mg tablet (Xarelto) 20 mg PO DAILY 03/25/20 03/02/22 glucosam 750 mg-chondroi 100 1 tablet PO DAILY 10/06/20 03/02/22 mg-hyalur 1.65 mg-CF borate 108 mg tablet ([facility]) dutasteride 0.5 mg capsule 0.5 mg PO DAILY 09/30/21 03/02/22 potassium citrate 99 mg capsule 99 mg PO DAILY 09/30/21 03/02/22 acetaminophen 325 mg tablet 650 mg PO QAM 01/26/22 03/02/22 loratadine 10 mg tablet (Claritin) 10 mg PO PRN 03/02/22 03/02/22 oxybutynin chloride 15 mg 15 mg PO DAILY 04/04/22 tablet,extended release 24 hr Allergies Allergy/AdvReac Type Severity Reaction Status Date / Time Beta-Blockers AdvReac Severe Other Verified 04/04/22 09:33 (Beta-Adrenergic Bloc Review of Systems Review of Systems: All systems reviewed & are unremarkable except as noted in HPI and below PMFSH Past Medical History Medical History Atrial fibrillation BPH (benign prostatic hyperplasia) CAD in [place] artery Dyslipidemia Environmental allergies Essential (primary) hypertension Osteoarthritis Prediabetes Surgical History Surgical History History of arthroscopy of right knee - Meniscus repair 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 History of exploratory laparotomy History of mitral valve repair Family History Family History Sibling Depression Mother Hypertension Father Cerebrovascular accident Family history of malignant neoplasm Social History Social History Social History: Caffeine-coffee Smoking packs per day: 1 Smoking cigarettes per day: 20.0 Years smoked: 16 Smoking pack-years: 16.00 Smoking status: Former smoker Tobacco type: cigarettes Smokeless tobacco user: chewing tobacco Second hand tobacco smoke exposure: No Smoking end date: 03/20/75 Additional smoking assessment comments: Lip tobacco 16 years after quit smoking. Alcohol intake: current Drinks per week: 1 Alcohol use details: occasionally Substance use: never Substance use type: does not use Living arrangements: with family Occupation/Education: retired Gender identity (if verbalized by the patient): Male Sexual Orientation (if Verbalized by the Patient): Straight or Heterosexual Spiritual care concerns: No Exam Narrative: APPEARANCE: Well appearing, no pain, no distress, well-nourished. HEAD: normocephalic, atraumatic. NOSE: Normal no drainage NECK: Supple. No adenopathy, no masses. RESPIRATORY: Airway patent, respirations nonlabored
[2022-06-25 08:43] LABS: Partial Thromboplastin Time 30.8 SECONDS (22.3-36.8)
[2022-06-25 08:59] VITALS: BP 148/71; PULSE 76; RESP 16; O2SAT 98
[2022-06-25 09:14] LABS: Alanine Aminotransferase 19 U/L (6-50); Alkaline Phosphatase 66 U/L (38-126); Anion Gap 4 mmol/L (8-16); Aspartate Amino Transferase 28 U/L (17-59); Bilirubin,Total 1.2 mg/dL (0.2-1.3); Blood Urea Nitrogen 25 mg/dL (9-20); Calcium 8.3 mg/dL (8.4-10.2); Carbon Dioxide 25 mmol/L (22-30); Chloride 107 mmol/L (98-107); Estimated CRCL calculation 73 ml/min; Estimated Glomerular Filt Rate > 60; Glucose 110 mg/dL (65-110); Potassium 4.6 mmol/L (3.4-5.0); Sodium 136 mmol/L (137-145)
[2022-06-25 12:38] VITALS: BP 123/69; PULSE 83; RESP 18; O2SAT 93
== END 2022-06-25 12:39 | disposition home or self-care (01) ==
PROVIDERS: Emergency Provider Emergency Medicine; PCP Family Medicine
DX: K92.1 Melena (principal); I48.91 Unspecified atrial fibrillation; I25.10 Atherosclerotic heart disease of native coronary artery without angina pectoris; N40.0 Benign prostatic hyperplasia without lower urinary tract symptoms; I10 Essential (primary) hypertension; E78.5 Hyperlipidemia, unspecified; M19.90 Unspecified osteoarthritis, unspecified site; R73.03 Prediabetes; Z95.1 Presence of aortocoronary bypass graft; Z87.891 Personal history of nicotine dependence; Z79.01 Long term (current) use of anticoagulants; Z79.82 Long term (current) use of aspirin; Z79.51 Long term (current) use of inhaled steroids; Z95.4 Presence of other heart-valve replacement
CPT/HCPCS: 36415; 74177; 80053; 85025; 85610; 85730; 86850; 86900; 86901; 99284; Q9967

== ENCOUNTER 2022-10-03 11:01 | Outpatient (CLI) | payer MEDICARE, BC, SELFPAY ==
[2022-10-03 13:59] LABS: Alanine Aminotransferase 19 U/L (6-50); Albumin Level 4.2 g/dL (3.5-5.1); Alkaline Phosphatase 86 U/L (38-126); Anion Gap 9 mmol/L (8-16); Aspartate Amino Transferase 45 U/L (17-59); Blood Urea Nitrogen 20 mg/dL (9-20); Carbon Dioxide 24 mmol/L (22-30); Chloride 104 mmol/L (98-107); Estimated Glomerular Filt Rate > 60; Glucose 96 mg/dL (65-110); Potassium 4.4 mmol/L (3.4-5.0); Sodium 137 mmol/L (137-145)
[2022-10-03 14:20] LABS: Hemoglobin A1C 5.5 % (<5.7)
== END 2022-10-03 11:02 | disposition home or self-care (01) ==
LOC: ANHGOSHLAB 11:04
PROVIDERS: PCP Family Medicine; Visit Provider Family Medicine
DX: R73.03 Prediabetes (principal); I10 Essential (primary) hypertension; I25.10 Atherosclerotic heart disease of native coronary artery without angina pectoris; I48.91 Unspecified atrial fibrillation; Z79.899 Other long term (current) drug therapy
CPT/HCPCS: 36415; 80053; 83036

== ENCOUNTER 2023-04-11 09:52 | Outpatient (CLI) | payer MEDICARE, BC, SELFPAY ==
[2023-04-11 14:24] LABS: Basophils Absolute Auto 0.1 K/mm3 (0.0-0.1); Basophils Percent Auto 1.1 % (0.2-1.2); Eosinophils Absolute Auto 0.2 K/mm3 (0-0.3); Eosinophils Percent Auto 3.9 % (0-4.4); Hematocrit 34.4 % (42.0-52.0); Hemoglobin 9.8 g/dL (14.0-18.0); Immature Granulocyte Absolute 0.02 K/mm3 (0.00-0.031); Immature Granulocyte Percent A 0.3 % (0-0.5); Lymphocytes Absolute Auto 1.17 K/mm3 (0.9-3.2); Lymphocytes Percent Auto 18.8 % (18.3-44.2); Mean Corpuscular HGB Conc 28.5 g/dl (32-36); Mean Corpuscular Hemoglobin 24.4 pg (26-34); Mean Corpuscular Volume 85.8 fl (80-100); Mean Platelet Volume 11.3 fl (7.4-10.4); Monocytes Absolute Auto 1.2 K/mm3 (0.1-0.6); Monocytes Percent Auto 18.6 % (2.6-8.5); Neutrophils Absolute Auto 3.6 K/mm3 (1.3-6.7); Neutrophils Percent Auto 57.3 % (45.5-73.1); Platelet Count Result 214 k/mm3 (150-375); Red Blood Count 4.01 M/mm3 (4.6-6.20); Red Cell Distribution Width 14.7 % (11.5-14.5); White Blood Count 6.2 K/mm3 (4.5-10.0)
[2023-04-11 14:59] LABS: Vitamin D 25 Hydroxy 65.3 ng/mL
[2023-04-11 15:01] LABS: Alanine Aminotransferase 14 U/L (6-50); Alkaline Phosphatase 128 U/L (38-126); Anion Gap 8 mmol/L (8-16); Aspartate Amino Transferase 29 U/L (17-59); Bilirubin,Total 0.8 mg/dL (0.2-1.3); Blood Urea Nitrogen 21 mg/dL (9-20); Calcium 8.7 mg/dL (8.4-10.2); Carbon Dioxide 27 mmol/L (22-30); Chloride 104 mmol/L (98-107); Cholesterol 124 mg/dL (0-200); Estimated Glomerular Filt Rate > 60; Glucose 75 mg/dL (65-110); HDL Direct 71 mg/dL; Potassium 4.3 mmol/L (3.4-5.0); Sodium 139 mmol/L (137-145); Triglycerides 49 mg/dL (<150)
[2023-04-11 15:12] LABS: LDL Cholesterol Direct 44 mg/dL
[2023-04-11 15:33] LABS: Hemoglobin A1C 5.5 % (<5.7)
[2023-04-11 15:52] LABS: Influenza A QL RT-PCR Negative (Negative); Influenza B QL RT-PCR Negative (Negative); RSV RNA, RT-PCR Negative (Negative); SARS-CoV-2 RNA PCR Negative (Negative)
[2023-04-11 16:09] LABS: Prostate Specific Antigen 1.6 ng/mL (< OR = 4.0)
== END 2023-04-11 09:53 | disposition home or self-care (01) ==
LOC: ANHGOSHLAB 09:53
PROVIDERS: PCP Family Medicine; Visit Provider Family Medicine
DX: R73.03 Prediabetes (principal); E78.5 Hyperlipidemia, unspecified; E55.9 Vitamin D deficiency, unspecified; E53.8 Deficiency of other specified B group vitamins; I48.11 Longstanding persistent atrial fibrillation; I10 Essential (primary) hypertension; Z12.5 Encounter for screening for malignant neoplasm of prostate; J06.9 Acute upper respiratory infection, unspecified; R05.9 Cough, unspecified
CPT/HCPCS: 36415; 80053; 80061; 82306; 82607; 83036; 84153; 84443; 85025; 87637; G0103

== ENCOUNTER 2023-04-20 09:55 | Outpatient (NON) | payer MEDICARE, BC, SELFPAY ==
[2023-04-20 14:42] LABS: IFOB Positive Control Positive; Immunochemical Fecal Occult Bl Positive (N)
== END 2023-04-20 09:56 | disposition home or self-care (01) ==
PROVIDERS: PCP Family Medicine; Visit Provider Family Medicine
DX: D64.9 Anemia, unspecified (principal)
CPT/HCPCS: 82274

== ENCOUNTER 2023-05-15 04:08 | Day surgery (SDC) | payer MEDICARE, BC, SELFPAY ==
[2023-04-27 13:43] VITALS: BMI 31.2
--- NOTE | 2023-05-01 14:16 | PC.NURSE ---
Spoke with _PATIENT___ regarding medication __XARELTO__. Pt. verbalizes understanding that the last dose of _XARELTO__ is to be taken on _05/12/2023__ and the Endoscopist will instruct them when to restart after the procedure.
--- NOTE | 2023-05-12 12:37 | SUR.PREOP ---
Patient called regarding upcoming procedure. Reviewed preop instructions, appointment times, and procedure prep.
--- NOTE | 2023-05-12 17:21 | PM.HPGS ---
History of Present Illness History of Present Illness Consent: Risks, benefits, and alternatives have been discussed and questions answered. Patient agrees to proceed with procedure. Chief complaint: neoplasm screening,Anemia,Other Fecal Abnormalitie Narrative: Augie Bunn is a 77 year old male Referred for colonoscopy due to blood in his stools. For about 1 week in January he would pass blood with every bowel movement. His stools were loose at that time. He recalls is happening a few years ago also at that time was attributed to diverticular disease. He was seen in the emergency room a few months ago with melena. He is chronically anticoagulated with Xarelto. Recent stool Hemoccult test was positive . Review of Systems Review of Systems: All systems reviewed & are unremarkable except as noted in HPI and below PMFSH Past Medical History Medical History Atrial fibrillation BPH (benign prostatic hyperplasia) CAD in [place] artery Dyslipidemia Environmental allergies Essential (primary) hypertension Osteoarthritis Prediabetes Surgical History Surgical History History of arthroscopy of right knee 1990s - Meniscus repair 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 History of exploratory laparotomy 1980s History of mitral valve repair Family History Family History Sibling Depression Mother Hypertension Father Cerebrovascular accident Family history of malignant neoplasm Social History Social History Social History: Caffeine-coffee Smoking packs per day: 1 Smoking cigarettes per day: 20.0 Years smoked: 16 Smoking pack-years: 16.00 Smoking status: Former smoker Tobacco type: cigarettes Smokeless tobacco user: chewing tobacco and snuff Second hand tobacco smoke exposure: No Smoking end date: 03/20/69 Additional smoking assessment comments: Lip tobacco 16 years after quit smoking. Alcohol intake: current Drinks per week: 1 Alcohol use details: occasionally Substance use: never Substance use type: does not use Lack of Transportation: No Lack of Food: Never True Current Housing: I Have Housing Concerned About Future Housing: No Difficulty Paying Gas/Electric Bills: No Difficulty Paying for Meds: No Currently Unemployed: No Education: Grade School Difficulty w/ Childcare or Family Care: No Living arrangements: with family Occupation/Education: retired Gender identity (if verbalized by the patient): Male Sexual Orientation (if Verbalized by the Patient): Straight or Heterosexual Spiritual care concerns: No Meds Home Medications and Allergies Home Medications Medication Instructions Recorded Confirmed Type aspirin 81 mg tablet,delayed 81 mg PO DAILY 03/25/20 04/27/23 History release multivitamin 1 tablet PO DAILY 03/25/20 04/27/23 History omega-3 fatty acids 1,000 mg 1,000 mg PO DAILY 03/25/20 04/27/23 History capsule rivaroxaban 20 mg tablet (Xarelto) 20 mg PO DAILY 03/25/20 04/27/23 History glucosam 750 mg-chondroi 100 1 tablet PO DAILY 10/06/20 04/27/23 History mg-hyalur 1.65 mg-CF borate 108 mg tablet ([facility]) potassium citrate 99 mg capsule 99 mg PO DAILY 09/30/21 04/27/23 History acetaminophen 325 mg tablet 650 mg PO QAM 01/26/22 04/27/23 History loratadine 10 mg tablet (Claritin) 10 mg PO PRN 03/02/22 05/15/23 History fluticasone propionate 50 2 spray intranasal DAILY PRN 10/03/22 04/27/23 History mcg/actuation nasal ALLERGIES spray,suspension (Flonase Allergy Relief) tamsulosin 0.4 mg capsule (Flomax) 0.4 mg PO DAILY #90 caps 12/02/22 04/27/23 Rx atorvastatin 20 mg tablet 20 mg PO QHS #90 tabs 01/10/23 04/27/23 Rx benzonatate 100 mg capsule 100 mg PO TID PRN cough #30 caps
[2023-05-15 11:38] VITALS: BP 119/68; PULSE 95; RESP 20; TEMP 36.4; O2SAT 99
--- NOTE | 2023-05-15 11:48 | WPDANESEPPF ---
Anes - Initial Pre Proc Eval Procedure: Operation Date: 05/15/23 13:00 Proposed Procedures p Colonoscopy - Isac Méndez MD Date/Time: 05/15/23 11:48 Surgeon: Isac Méndez MD Pre Op Diagnosis: neoplasm screening,Anemia,Other Fecal Abnormalitie Patient Data Age: 77 Gender: M Height: 1.83 m Weight: 99.2 kg Last Vital Signs Temp 36.4 C 05/15/23 11:38 Pulse 95 05/15/23 11:38 Resp 20 05/15/23 11:38 BP 119/68 05/15/23 11:38 Pulse Ox 99 05/15/23 11:38 O2 Del Method Room Air 05/15/23 11:38 Allergies Allergy/AdvReac Type Severity Reaction Status Date / Time Beta-Blockers Allergy Severe Other Verified 05/15/23 11:36 (Beta-Adrenergic Bloc oxybutynin Allergy Severe Fainting Verified 05/15/23 11:36 Home Medications Medication Instructions Recorded Confirmed Type aspirin 81 mg tablet,delayed 81 mg PO DAILY 03/25/20 04/27/23 History release multivitamin 1 tablet PO DAILY 03/25/20 04/27/23 History omega-3 fatty acids 1,000 mg 1,000 mg PO DAILY 03/25/20 04/27/23 History capsule rivaroxaban 20 mg tablet (Xarelto) 20 mg PO DAILY 03/25/20 04/27/23 History glucosam 750 mg-chondroi 100 1 tablet PO DAILY 10/06/20 04/27/23 History mg-hyalur 1.65 mg-CF borate 108 mg tablet ([facility]) potassium citrate 99 mg capsule 99 mg PO DAILY 09/30/21 04/27/23 History acetaminophen 325 mg tablet 650 mg PO QAM 01/26/22 04/27/23 History loratadine 10 mg tablet (Claritin) 10 mg PO PRN 03/02/22 05/15/23 History fluticasone propionate 50 2 spray intranasal DAILY PRN 10/03/22 04/27/23 History mcg/actuation nasal ALLERGIES spray,suspension (Flonase Allergy Relief) tamsulosin 0.4 mg capsule (Flomax) 0.4 mg PO DAILY #90 caps 12/02/22 04/27/23 Rx atorvastatin 20 mg tablet 20 mg PO QHS #90 tabs 01/10/23 04/27/23 Rx benzonatate 100 mg capsule 100 mg PO TID PRN cough #30 caps 04/11/23 04/27/23 Rx cholecalciferol (vitamin D3) 125 125 mcg PO DAILY 04/11/23 04/27/23 History mcg (5,000 unit) tablet losartan 50 mg tablet 50 mg PO DAILY 04/11/23 04/27/23 History ciclopirox 8 % topical solution 1 applic topical QHS PRN Rash 04/27/23 04/27/23 History triamcinolone acetonide 0.5 % 1 applic topical DAILY PRN Rash 04/27/23 04/27/23 History topical cream Patient hx anesthesia problems: none Family hx anesthesia problems: none Results Review: All pre-operative results and documents have been reviewed as part of the pre-operative evaluation. [facility] Past Medical History Medical History Atrial fibrillation BPH (benign prostatic hyperplasia) CAD in [place] artery Dyslipidemia Environmental allergies Essential (primary) hypertension Osteoarthritis Prediabetes Surgical History Surgical History History of arthroscopy of right knee 1990s - Meniscus repair 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 History of exploratory laparotomy 1980s History of mitral valve repair Family History Family History Sibling Depression Mother Hypertension Father Cerebrovascular accident Family history of malignant neoplasm Social History Social History Social History: Caffeine-coffee Smoking packs per day: 1 Smoking cigarettes per day: 20.0 Years smoked: 16 Smoking pack-years: 16.00 Smoking status: Former smoker Tobacco type: cigarettes Smokeless tobacco user: chewing tobacco and snuff Second hand tobacco smoke exposure: No Smoking end date: 03/20/69 Additional smoking assessment comments: Lip tobacco 16 years after quit smoking. Alcohol intake: current Drinks per week: 1 Alcohol use details: occasionally Substance use: never Substance use type: does not use Lack of Transportation: No Lack of Food: Never True Current Housing: I
[2023-05-15] MEDS: LACTATED RINGERS 1,000 ML 150 ML IV CONT (11:57)
[2023-05-15 12:19] VITALS: BP 89/53; PULSE 82; RESP 20; O2SAT 100
[2023-05-15 12:29] VITALS: BP 132/62; PULSE 74; RESP 19; O2SAT 100
[2023-05-15 12:39] VITALS: BP 129/68; PULSE 75; RESP 20; O2SAT 100
== END 2023-05-15 12:54 | disposition home or self-care (01) ==
PROVIDERS: PCP Family Medicine; Visit Provider Internal Medicine Gastroenterology
PROC: 0DJD8ZZ Inspection of Lower Intestinal Tract, Via Natural or Artificial Opening Endoscopic (ICD-10-PCS; CPT 45378; principal; 2023-05-15 13:00)
DX: Z12.11 Encounter for screening for malignant neoplasm of colon (principal); K57.30 Diverticulosis of large intestine without perforation or abscess without bleeding; I10 Essential (primary) hypertension; E78.5 Hyperlipidemia, unspecified; D64.9 Anemia, unspecified; R73.03 Prediabetes; N40.0 Benign prostatic hyperplasia without lower urinary tract symptoms; M19.90 Unspecified osteoarthritis, unspecified site; Z79.82 Long term (current) use of aspirin; Z79.01 Long term (current) use of anticoagulants; Z98.890 Other specified postprocedural states; Z95.5 Presence of coronary angioplasty implant and graft; Z87.891 Personal history of nicotine dependence; Z86.79 Personal history of other diseases of the circulatory system; Z82.49 Family history of ischemic heart disease and other diseases of the circulatory system; Z80.9 Family history of malignant neoplasm, unspecified
CPT/HCPCS: G0105; J2704; J7120

== ENCOUNTER 2023-06-09 09:28 | Outpatient (CLI) | payer MEDICARE, BC, SELFPAY ==
[2023-06-09 15:10] LABS: Basophils Absolute Auto 0.1 K/mm3 (0.0-0.1); Basophils Percent Auto 1.4 % (0.2-1.2); Eosinophils Absolute Auto 0.2 K/mm3 (0-0.3); Eosinophils Percent Auto 3.9 % (0-4.4); Hematocrit 31.5 % (42.0-52.0); Hemoglobin 8.5 g/dL (14.0-18.0); Immature Granulocyte Absolute 0.02 K/mm3 (0.00-0.031); Immature Granulocyte Percent A 0.3 % (0-0.5); Lymphocytes Absolute Auto 1.26 K/mm3 (0.9-3.2); Lymphocytes Percent Auto 21.6 % (18.3-44.2); Mean Corpuscular Volume 73.9 fl (80-100); Mean Platelet Volume 10.4 fl (7.4-10.4); Monocytes Absolute Auto 1.1 K/mm3 (0.1-0.6); Monocytes Percent Auto 18.4 % (2.6-8.5); Neutrophils Absolute Auto 3.2 K/mm3 (1.3-6.7); Neutrophils Percent Auto 54.4 % (45.5-73.1); Platelet Count Result 244 k/mm3 (150-375); Red Blood Count 4.26 M/mm3 (4.6-6.20); White Blood Count 5.8 K/mm3 (4.5-10.0)
[2023-06-09 16:00] LABS: Hypochromasia 1+; Platelet Estimate Adequate (Adequate); Schistocytes None Seen
[2023-06-09 16:01] LABS: Anisocytosis 2+; Microcytosis 1+ (NORMAL)
[2023-06-09 17:59] LABS: Iron 27 ug/dL (49-181)
[2023-06-09 18:09] LABS: Percent Iron Saturation 5 % (20-50)
[2023-06-09 18:35] LABS: Ferritin 7.13 ng/mL (11.1-264)
== END 2023-06-09 09:29 | disposition home or self-care (01) ==
LOC: ANHGOSHLAB 09:29
PROVIDERS: PCP Family Medicine; Visit Provider Family Medicine
DX: D64.9 Anemia, unspecified (principal)
CPT/HCPCS: 36415; 82728; 83540; 83550; 85025

== ENCOUNTER 2023-09-12 08:52 | Outpatient (CLI) | payer MEDICARE, BC, SELFPAY ==
[2023-09-12 09:18] LABS: Hematocrit 47.9 % (42.0-52.0); Hemoglobin 15.3 g/dL (14.0-18.0); Mean Corpuscular HGB Conc 31.9 g/dl (32-36); Mean Corpuscular Hemoglobin 27.6 pg (26-34); Mean Corpuscular Volume 86.3 fl (80-100); Mean Platelet Volume 9.9 fl (7.4-10.4); Platelet Count Result 182 k/mm3 (150-375); Red Blood Count 5.55 M/mm3 (4.6-6.20); Red Cell Distribution Width 18.7 % (11.5-14.5); White Blood Count 5.8 K/mm3 (4.5-10.0)
[2023-09-12 12:00] LABS: Iron 76 ug/dL (49-181)
[2023-09-12 12:01] LABS: Anion Gap 7 mmol/L (4-12); Blood Urea Nitrogen 19 mg/dL (9-20); Calcium 9.2 mg/dL (8.4-10.2); Carbon Dioxide 24 mmol/L (22-30); Chloride 106 mmol/L (98-107); Estimated Glomerular Filt Rate > 60; Glucose 102 mg/dL (65-110); Potassium 4.2 mmol/L (3.4-5.0); Sodium 137 mmol/L (137-145)
[2023-09-12 12:10] LABS: Percent Iron Saturation 22 % (20-50)
[2023-09-12 13:09] LABS: Folic Acid > 20.0 ng/mL (2.76->20)
== END 2023-09-12 08:53 | disposition home or self-care (01) ==
LOC: ANHLAB 08:55
PROVIDERS: Nurse Practitioner Family; PCP Family Medicine; Visit Provider Internal Medicine Hematology & Oncology
DX: D50.0 Iron deficiency anemia secondary to blood loss (chronic) (principal)
CPT/HCPCS: 36415; 80048; 82607; 82728; 82746; 83540; 83550; 85027

== ENCOUNTER 2024-01-11 09:22 | Outpatient (CLI) | payer MEDICARE, BC, SELFPAY ==
[2024-01-11 09:41] LABS: Basophils Percent Auto 0.7 % (0.2-1.2); Eosinophils Absolute Auto 0.1 K/mm3 (0-0.3); Hematocrit 52.8 % (42.0-52.0); Hemoglobin 17.2 g/dL (14.0-18.0); Immature Granulocyte Absolute 0.02 K/mm3 (0.00-0.031); Immature Granulocyte Percent A 0.3 % (0-0.5); Lymphocytes Absolute Auto 1.23 K/mm3 (0.9-3.2); Lymphocytes Percent Auto 20.4 % (18.3-44.2); Mean Corpuscular HGB Conc 32.6 g/dl (32-36); Mean Corpuscular Hemoglobin 30.4 pg (26-34); Mean Corpuscular Volume 93.3 fl (80-100); Mean Platelet Volume 9.8 fl (7.4-10.4); Monocytes Absolute Auto 0.8 K/mm3 (0.1-0.6); Monocytes Percent Auto 13.8 % (2.6-8.5); Neutrophils Absolute Auto 3.8 K/mm3 (1.3-6.7); Neutrophils Percent Auto 62.8 % (45.5-73.1); Platelet Count Result 183 k/mm3 (150-375); Red Blood Count 5.66 M/mm3 (4.6-6.20); Red Cell Distribution Width 13.2 % (11.5-14.5)
[2024-01-11 13:06] LABS: Iron 126 ug/dL (49-181)
[2024-01-11 13:08] LABS: Anion Gap 9 mmol/L (4-12); Blood Urea Nitrogen 21 mg/dL (9-20); Calcium 9.7 mg/dL (8.4-10.2); Carbon Dioxide 28 mmol/L (22-30); Chloride 101 mmol/L (98-107); Estimated Glomerular Filt Rate > 60; Glucose 115 mg/dL (65-110); Potassium 4.5 mmol/L (3.4-5.0); Sodium 138 mmol/L (137-145)
[2024-01-11 13:16] LABS: Percent Iron Saturation 37 % (20-50)
[2024-01-11 14:49] LABS: Folic Acid > 20.0 ng/mL (2.76->20)
== END 2024-01-11 09:23 | disposition home or self-care (01) ==
LOC: ANHLAB 09:24
PROVIDERS: PCP Family Medicine; Visit Provider Internal Medicine Hematology & Oncology
DX: D50.0 Iron deficiency anemia secondary to blood loss (chronic) (principal)
CPT/HCPCS: 36415; 80048; 82607; 82728; 82746; 83540; 83550; 85025

== ENCOUNTER 2024-04-18 09:16 | Outpatient (CLI) | payer MEDICARE, BC, SELFPAY ==
--- OUTSIDE RECORDS SUMMARY | 2024-04-18 09:47 | XMS_ITS | Encounter Summary ---
Author Organization [facility] Address [address] [place] [id number] Care Team Providers Care Arnp Name Role Phone Flavio Sanchez MD Primary Care Provider [phone]- [phone] Flavio Sanchez MD Primary Care Provider [phone]- [phone] Mattie Dash MD Primary Care Provider [phone]- [phone] Donovan Read MD Primary Care Provider Encounter Details Date Type Department Care Team (Late st Contact Info) Description 06/07/2016 Orders Only [facility] ProviderJordan MD [address] [place] [id number] Social History Tobacco Use Types Packs/Day Years Used Date Smoking Tobacco: Never Assessed Sex and Gender Information Value Date Recorded Sex Assigned at Not on file Legal Sex Male 5:43 PM [employer] Gender Identity Not on file Sexual Orientation Not on file documented as of this encounter Plan of Treatment Not on file documented as of this encounter Procedures Procedure Name Priority Date/Time Associated Diagnosis Comments CARDIOLOGY REPORT 06/07/2016 documented in this encounter Results * CARDIOLOGY REPORT (06/07/2016) Anatomical Region Laterality Modality Other Narrative 06/07/2016 Ordered by an unspecified provider. Historical Provider [facility] GARCIA Final Result documented in this encounter Visit Diagnoses Not on filedocumented in this encounter Care Teams Arnp Relationship Specialty Start Date End Date Flavio Sanchez MD [address] [place] [address] PCP - General 06/17/16 03/04/18 Flavio Sanchez MD [address] [place] [address] PCP - General 05/13/13 06/16/16 Mattie Dash MD [address] [place] [address] PCP - General Family Practice 03/05/18 07/09/18 Donovan Read MD [address] [place] [address] PCP - General Family Practice 07/10/18 documented as of this encounter
--- OUTSIDE RECORDS SUMMARY | 2024-04-18 09:47 | XMS_ITS | Referral Summary ---
Author Organization [facility] [address] [facility] [address] Address [address] [place] [address] Care Team Providers Care Temp Recruiter Name Role Phone Donovan Read MD Primary Care Provider Encounters Date Type Department Care Team Description 02/05/2024 10:30 AM FBI INVESTIGATOR Office Visit [facility] Cardiology [address] [place] [address] Kavin Interiano MD Coronary artery disease involving sus[place] coronary artery of [place] heart without angina pectoris (Primary Dx); Chronic atrial fibrillation (HCC); Essential hypertension, benign; H/O mitral valve repair; NSVT (nonsustained ventricular tachycardia) (HCC); Syncope, unspecified syncope type 01/25/2024 Orders Only [facility] [address] [place] [address] Unknown, Notinfile from Last 3 Months Allergies Active Allergy Reactions Criticality Noted Date Comments Metoprolol Syncope High 04/24/2017 Oxybutynin Syncope High 05/17/2022 Heart burn and dry mouth Medications multivitamin tablet tablet take as directed 0 0 7 Active acetaminophen (TYLENOL) 500 mg tablet Take 1 tablet (500 mg total) by mouth every 6 (six) hours as needed for pain Active losartan (COZAAR) 50 mg tablet Take 1 tablet (50 mg total) by mouth daily Active moqrq-0-goq-epa -dpa-fish oil 1,050-1,200 mg capsule 1 capsule daily Acti ve glucosam/chond/ hyalu/CF borate (MOVE FREE JOINT HEALTH ORAL) Take by mouth daily Active atorvastatin (LIPITOR) 20 mg tablet Take 1 tablet by mouth once daily 90 tablet 0 Active potassium 99 mg tablet Take 1 tablet (99 mg total) by mouth daily Active dutasteride (AVODART) 0.5 mg capsule Take 1 capsule (0.5 mg total) by mouth daily 2 Active fluticasone propionate (FLONASE) 50 mcg/actuation nasal spray USE 2 SPRAY(S) IN EACH NOSTRIL ONCE DAILY 2 Active loratadine (CLARITIN) 10 mg tablet Take 1 tablet (10 mg total) by mouth daily Active triamcinolone (KENALOG) 0.5 % cream Apply 1 application (deactivated) topically daily as needed 3 Active Myrbetriq 50 mg tablet extended release 24 hr Take 1 tablet (50 mg total) by mouth daily 4 Active tamsulosin (FLOMAX) 0.4 mg extended release capsule Take 1 capsule (0.4 mg total) by mouth daily 3 Active calcium carbonate 195 mg calcium (500 mg) tablet,chewable Take by oral route. 1 Active rivaroxaban (Xarelto) 20 mg tablet Take 1 tablet (20 mg total) by mouth daily 90 tablet 3 4 Active Active Problems Problem Noted Date Diagnosed Date NSVT (nonsustained ventricular tachycardia) 03/21 Overview (04/11/2022): Added automatically from request for surgery [id number] Chronic atrial fibrillation 03/02/2020 H/O mitral valve repair 03/05/2018 Encounter for removal of sutures 07/03/2017 Assessment & Plan (07/03/2017 8:24 AM CDT): I removed 1 suture from 1 of the incisions Coronary artery disease invo lving susanville coronary artery of [place] heart without angina pectoris 02/23/2017 Assessment & Plan (07/03/2017 8:20 AM CDT): Continue aspirin and Lipitor. Assessment & Plan (03/28/2017 1:31 PM FBI INVESTIGATOR): Status post CABG. Continue aspirin, Lipitor . He is not candidate for beta- lul because of previous seizures/syncope. Essential hypertension, benign 11/07/2016 Assessment & Plan (07/03/2017 8:19 AM CDT): Blood pressure is well controlled. Continue losartan 50 mg daily. Assessment & Plan (03/28/2017 1:30 PM FBI INVESTIGATOR): Blood pressure is elevated. Add losartan 25 mg p.o. daily. Assessment & Plan (01/02/2017 9:20 AM CDT): Blood pressure is controlled. Continue current meds Assessment & Plan (11/07/2016 8:40 AM CDT): Controlled. Continue current medications Syncope Assessment & Plan (03/28/2017 1:32 PM FBI INVESTIGATOR): Patient was started on metoprolol preoperatively and then on presentation to have his surgery he developed what seems to be either syncope versus seizure episode and at that time he underwent EEG that looked unremarkable as well as brain imaging looked unremarkable. Patient was discharged home on metoprolol and underwent 2 syncopal episodes. Eventually metoprolol was stopped and he has no recurrence of syncope/seizures. If in the future this patient gets another episode of syncope I will arrange for 30 day event monitor to rule out significant AV block. Resolved Problems Problem Noted Date Diagnosed Date Resolved Date Severe mitral regurgitation 02/23/2017 03/05/2018 Assessment & Plan (07/03/2017 8:20 AM CDT): Status post mitral valve repair. Echocardiogram 1 week after mitral valve repair looked well Mitral valve insufficiency 01/24/2017 1 05/06/2017 Non-rheumatic mitral regurgitation 11/07/2016 03/05/2018 Assessment & Plan (03/28/2017 1:30 PM FBI INVESTIGATOR): Status post mitral valve repair. Continue aspirin 81 mg daily. Assessment & Plan (01/02/2017 9:20 AM CDT): Severe mitral regurgitation with left atrial enlargement and evidence of severe pulmonary hypertension. Will refer for mitral valve repair. Patient will need cardiac catheterization before the planned mitral valve surgery. Assessment & Plan (11/07/2016 8:40 AM CDT): Will repeat echocardiogram in 6 weeks to re-evaluate the LV systolic function and pulmonary systolic pressure. I will bring him back in 2 months to reassess symptoms. Today on physical exam he had some premature scattered contractions. Reassess syncopal months from now Social History Tobacco Use Types Packs/Day Years Used Date Smoking Tobacco: Former Cigarettes Q uit: 01/02/1971 Smokeless Tobacco: Former Quit: 1992 Tobacco Cessation:Counseling Given: Not Answered Alcohol Use Standard Drinks/Week Comments Yes 1 (1 standard drink = 0.6 oz pur e alcohol) occassionally AUDIT-C Answer Date Recorded Q1: How often do you have a drink containing alc ohol? 2-4 times a month 04/27/2022 Q2: How many drinks containi ng alcohol do you have on a typical day when you are drinking? 1 or 2 04/27/2022 Q3: How often do you have si x or more drinks on one occasion? Never 04/27/2022 Personal Safety Answer Date Recorded Getting School Help Needed Denies 04/22 Sex and Gender Information Value Date Recorded Sex Assigned at Not on file Legal Sex Male 5:43 PM FBI INVESTIGATOR Gender Identity Not on file Sexual Orientation Not on file Last Filed Vital Signs Vital Sign Reading Time Taken Comments Blood Pressure 132/80 02/05/2024 10:11 AM FBI INVESTIGATOR Pulse 62 02/05/2024 10:11 AM FBI INVESTIGATOR Temperature 36.8 ??C (98.2 ??F) 04/27/2022 8:16 AM CS T Respiratory Rate 16 05/17/2022 11:42 AM FBI INVESTIGATOR Oxygen Saturation 99% 02/05/2024 10:11 AM FBI INVESTIGATOR Inhaled Oxygen Concentration - - Weight 102 kg (224 lb 14.4 oz) 02/05/2024 10:11 AM FBI INVESTIGATOR Height 180.3 cm (5' 11 ) 02/05/2024 10:11 AM FBI INVESTIGATOR Body Mass Index 31.37 02/05/2024 10:11 AM FBI INVESTIGATOR Plan of Treatment Not on file Medical Devices Implanted Type Area Polymerization Engineer Device Identifier Shelf Expiration Date Model / Serial / Lot Ring Aliciaoplasty Edda thomas Physio Ii Cocr Silicone Polyester [id number] Mm Mitral Salguero Sew Sterile Heart Valve Repair - [id number] - [id number] Implanted:Qty: 1 on 02/24/2017 by Buddy Arzate MD at [facility] Other - see comments N/A: Heart [employer] 02/17/2021 [id number] / [id number] / Description:Mitral annulopla sty ring Service Seeking Angio-Seal Vip 6fr Closere Device [id number] - [id number] Implanted:Qty: 1 on 04/27/2022 by Kavin Interiano MD at [facility] [employer] 01/17/2023 [id number] / / [id number] Procedures Procedure Name Priority Date/Time Associated Diagnosis Comments SURGICAL PATHOLOGY Routine 01/25/2024 10 :00 AM FBI INVESTIGATOR from Last 3 Months Results * Surgical pathology (01/25/2024 10:00 AM FBI INVESTIGATOR) Skin, shave biopsy 01/25/2024 10:00 AM FBI INVESTIGATOR 01/26/2024 7:54 AM FBI INVESTIGATOR Narrative 01/30/2024 4:24 PM FBI INVESTIGATOR [facility] results best viewed via link to PDF [facility] [address] [place] [address] Brad., ??[address] [place] [address] ? [email or web address] Note to Patients: ??This report may contain a detailed description of human tissue sent by a health care provider to the laboratory for pathologic evaluation. ??The content of this report is essential for diagnosis and may provide important critical findings. ??This information may be unfamiliar to patients to review without a medical professional present. ?? It is advised that the patient review this report in the presence of a health care provider who can answer questions and explain the details. FINAL REPORT Patient Information: PATIENT NAME: ??DANA SAGE. ? SEX: ??M ? : ??1945 (Age: 78) ? Specimen Information: COLLECTED: ??01/25/2024 ? RECEIVED: ??01/26/2024 ? REPORTED: ??01/30/2024 ? Submitting Physician Information: Tiara Ronquillo, [facility], [address] [place] [address] ??[id number], ? DERMATOPATHOLOGY REPORT RESULTS ?? DIAGNOSIS: SKIN, LEFT CLAVICULAR NECK, SHAVE BIOPSY: ? 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 Note: The specimen reveals dermal scar and fibrosis with a benign proliferation of neurites. SOX10 and S100 immunohistochemical stains highlight the lesional cells and NASIR focally demonstrates an incomplete capsule around one of the larger fascicles. A small traumatic neuroma is also within the differential diagnosis. Multiple sections have been cut and studied. Clinical correlation is advised. ag/spng By this signature, I attest that the above diagnosis is based upon my personal examination of the slides(and/or other material indicated in the diagnosis). Morteza Jett MD, PhD ?? Report Electronically Reviewed and Signed Out By ??Morteza Jett MD, PhD 01/30/2024 16:24:14 CLINICAL INFORMATION NEOPLASM OF UNCERTAIN BEHAVIOR VS BASAL CELL CARCINOMA VS FOLLICULITIS ?? SPECIMEN DATA MICROSCOPIC DESCRIPTION: There is a well-circumscribed neoplasm composed of fascicles of neurites by clefts. There is a proliferation of fibroblasts aligned parallel to the skin surface interposed among linearly arranged, thickened collagen bundles and small blood vessels. (L90.5, D23.9) GROSS DESCRIPTION: Received in a formalin-containing bottle is a superficial fragment of pale berry, finely scaling, and hair-bearing skin measuring 0.8 by 0.7 by 0.1 cm. The surgical margin is inked blue. The specimen is sectioned into 3 pieces and submitted entirely in a single cassette. Due to shrinkage, measurements may be different than those at the time of procedure. [email or web address] Clerical Data A; 52014, 90084-QG, 68267 IHC, 75286 IHC The characteristics of special, immunohistochemical, and immunofluorescence stains and in-situ hybridization tests performed by the [facility] were deemed acceptable in ongoing supplier quality manager measures and in compliance with regulations drawn from the Clinical Laboratory Improvement Act [id number] (CLIA '88). Control reactions for all stains performed were deemed adequate and appropriate by a pathologist prior to evaluation of patient tissue. Some diagnoses were rendered with the assistance of laboratory-developed tests utilizing analyte-specific reagents; the performance characteristic of these tests were determined by [facility] and are not cleared or approved by the [place] Food an Drug administration. Laboratory developed test may only be performed in a facility that is certified by the [facility] as a high-complexity laboratory under CLIA '88. These tests are used for clinical purposes and are not investigational. us Notinfile Unknown LAB PATHOLOGY ORDERABLES Final Result from Last 3 Months Insurance MEDICARE [employer] OOS MEDICARE [facility] [place] ACCESS [place]OS MEDICARE Advance Directives For more information, please contact: [phone] * Full Code (Latest Code Status on File) Date Activated Date Inactivated Comments 04/27/2022 10:36 AM 04/27/2022 4:58 PM * Full Code Date Activated Date Inactivated Comments 02/22/2017 4:23 PM 03/04/2017 3:39 PM Care Teams Temp Recruiter Relationship Specialty Start Date End Date Donovan Read MD PCP - General Family Practice 07/10/18
--- OUTSIDE RECORDS SUMMARY | 2024-04-18 09:47 | XMS_ITS | Encounter Summary ---
Author Organization [facility] Address [address] [place] [address] Care Team Providers Care Advertising Dispatch Clerk Name Role Phone Flavio Sanchez MD Primary Care Provider [phone]- [phone] Mattie Dash MD Primary Care Provider +1- [phone] Donovan Read MD Primary Care Provider Encounter Details Date Type Department Care Team (Late st Contact Info) Description 07/18/2016 Orders Only [facility] ProviderJordan MD [address] [place] [address] Social History Tobacco Use Types Packs/Day Years Used Date Smoking Tobacco: Former Cigarettes Q uit: 03/20/1981 Alcohol Use Standard Drinks/Week Comments Yes 0 (1 standard drink = 0.6 oz pur e alcohol) Sex and Gender Information Value Date Recorded Sex Assigned at Not on file Legal Sex Male 5:43 PM LOAD OUT PERSON Gender Identity Not on file Sexual Orientation Not on file documented as of this encounter Plan of Treatment Not on file documented as of this encounter Procedures Procedure Name Priority Date/Time Associated Diagnosis Comments CARDIOLOGY REPORT 07/18/2016 documented in this encounter Results * CARDIOLOGY REPORT (07/18/2016) Anatomical Region Laterality Modality Other Narrative 07/18/2016 Ordered by an unspecified provider. Historical Provider [facility] AKIN GARCIA Final Result documented in this encounter Visit Diagnoses Not on filedocumented in this encounter Care Teams Advertising Dispatch Clerk Relationship Specialty Start Date End Date Flavio Sanchez MD [address] [place] [id number] PCP - General 06/17/16 03/04/18 Mattie Dash MD [address] [place] [id number] PCP - General Family Practice 03/05/18 07/09/18 Donovan Read MD [address] [place] [id number] PCP - General Family Practice 07/10/18 documented as of this encounter
--- OUTSIDE RECORDS SUMMARY | 2024-04-18 09:47 | XMS_ITS | Clinical Summary ---
Author Organization [facility] [address] [place] Address [address] [place] [address] Care Team Providers Care Cda Teacher Name Role Phone Donovan Read MD Primary Care Provider Allergies Active Allergy Reactions Criticality Noted Date Comments Metoprolol Syncope High 04/24/2017 Oxybutynin Syncope High 05/17/2022 Heart burn and dry mouth Medications acetaminophen (TYLENOL) 500 mg tablet Take 500 mg by mouth. Active atorvastatin (LIPITOR) 20 mg tablet Take 20 mg by mouth daily. 4 Active dutasteride (AVODART) 0.5 mg Capsule Take 0.5 mg by mouth daily. 2 Active fluticasone propionate (FLONASE) 50 mcg/spray [place], Suspension nasal inhaler Administer 2 Sprays in each nostril daily. 2 Active loratadine (CLARITIN) 10 mg tablet Take 10 mg by mouth daily. Active losartan (COZAAR) 50 mg tablet Take 50 mg by mouth daily. Active Myrbetriq 50 mg Extended Release 24 hour tablet Take 50 mg by mouth daily. 4 Active tamsulosin (FLOMAX) 0.4 mg capsule Take 0.4 mg by mouth daily. Active rivaroxaban (Xarelto) 20 mg Tablet Take 1 Tablet by mouth daily. 2 Active triamcinolone acetonide (KENALOG) 0.5 % Cream Apply 1 Application to affected area. 3 Active multivitamin (DAILY-BORIS) tablet Take 1 Tablet by mouth daily. Active omega-3 acid ethyl esters (LOVAZA) 1 gram Capsule Take 4 Grams by mouth daily. Active POTASSIUM AMINOBENZOATE ORAL Take by mouth. Activ e ferrous sulfate 325 mg (65 mg iron) tablet Take 325 mg by mouth 2 times daily. Active ascorbic acid (VITAMIN C) 500 mg Tablet, Chewable Take 500 mg by mouth daily. Active Active Problems Problem Noted Date Diagnosed Date Anemia 06/13/2023 Encounters Date Type Department Care Team Description 04/10/2024 External Device Data ST[facility] ABSTRACTION Provider, Abstract 04/09/2024 External Device Data [facility] ABSTRACTION Provider, Abstract from Last 3 Months Family History Medical History Relation Name Comments No Known Problems Brother 1 Stroke Brother 2 No Known Problems Child 1 No Known Problems Child 2 Diabetes Father Heart Disease Father Lymphoma Father Diabetes Mother Heart Disease Mother Diabetes Sister Relation Name Status Comments Brother 1 Alive Brother 2 Child 1 Alive Child 2 Alive Father Mother Sister Alive Social History Tobacco Use Types Packs/Day Years Used Date Smoking Tobacco: Former Cigarettes 1 20 Q uit: 06/13/1983 Smokeless Tobacco: Never Tobacco Cessation:Counseling Given: Not Answered Alcohol Use Standard Drinks/Week Comments Yes 0 (1 standard drink = 0.6 oz pur e alcohol) Socially Sex and Gender Information Value Date Recorded Sex Assigned at Not on file Legal Sex Male 3:09 PM CDT Gender Identity Not on file Sexual Orientation Not on file Last Filed Vital Signs Vital Sign Reading Time Taken Comments Blood Pressure 128/73 01/15/2024 1:15 PM CDT Pulse 75 01/15/2024 1:15 PM CDT Temperature 36.6 ??C (97.8 ??F) 01/15/2024 1:15 PM CD T Respiratory Rate 15 09/13/2023 10:5 7 AM CDT Oxygen Saturation 96% 01/15/2024 1:15 PM CDT Inhaled Oxygen Concentration - - Weight 100.5 kg (221 lb 9.6 oz) 01/15/2024 1:15 PM CDT Height 182.9 cm (6') 06/13/2023 1:34 PM CDT Body Mass Index 30.05 06/13/2023 1:34 PM CDT Plan of Treatment Upcoming Encounters Date Type Department Care Team (Late st Contact Info) Description 05/17/2024 11:30 AM DATA SOFTWARE ENGINEER Office Visit [facility] Oncology and Hematology [facility] [place] [address] [place] [address] Haris Lozano MD [address] [place] [address] Health Maintenance Due Date Last Done Comments DTAP/TDAP/TD VACCINES (1 - Tdap) 05/25/1962 PNEUMOCOCCAL VACCINE 65+ YEARS (1 of 2 - PCV) 05/25/18 61 ZOSTER VACCINE (1 of 2) 05/25/1993 RSV VACCINE (60+ or ) (1 - 1-dose 75+ series) 05/25/2018 INFLUENZA VACCINE (#1) 2023 Insurance MEDICARE PART A AND B [employer] PPO Care Teams Cda Teacher Relationship Specialty Start Date End Date Donovan Read MD [address] [facility] [place] [id number] PCP - General Family Practice 06/13/23
--- OUTSIDE RECORDS SUMMARY | 2024-04-18 09:47 | XMS_ITS | Clinical Summary ---
Author Organization [facility] [address] Address [address] [place] [address] Care Team Providers Care Sewage Screen Operator Name Role Phone Donovan Read MD Primary [...] (50 mg total) by mouth daily Active epyes-4-hkj-epa -dpa-fish oil 1,050-1,200 mg capsule 1 capsule [...] (04/11/2022): Added automatically from request for surgery [id number] Chronic atrial fibrillation 03/02/2020 H/O mitral valve repair 03/05/2018 Encounter for removal of sutures 07/03/2017 Assessment & Plan (07/03/2017 8:24 AM CDT): I removed 1 suture from 1 of the incisions Coronary artery disease invo lving little shell tribe coronary artery of little shell tribe heart without angina pectoris 02/23/2017 Assessment & Plan (07/03/2017 8:20 AM CDT): Continue aspirin and Lipitor. Assessment & Plan (03/28/2017 1:31 PM PATTERN PAINTER): Status post CABG. Continue aspirin, Lipitor . He is not candidate for beta- lul because of previous seizures/syncope. Essential hypertension, benign 11/07/2016 Assessment & Plan (07/03/2017 8:19 AM CDT): Blood pressure is well controlled. Continue losartan 50 mg daily. Assessment & Plan (03/28/2017 1:30 PM PATTERN PAINTER): Blood pressure is elevated. Add losartan 25 mg p.o. daily. Assessment & Plan (01/02/2017 9:20 AM CDT): Blood pressure is controlled. Continue current meds Assessment & Plan (11/07/2016 8:40 AM CDT): Controlled. Continue current medications Syncope Assessment & Plan (03/28/2017 1:32 PM PATTERN PAINTER): Patient was started on metoprolol preoperatively and [...] 03/05/2018 Assessment & Plan (03/28/2017 1:30 PM PATTERN PAINTER): Status post mitral valve repair. Continue aspirin [...] scattered contractions. Reassess syncopal months from now Encounters Date Type Department Care Team Description 02/05/2024 10:30 AM PATTERN PAINTER Office Visit [facility] [address] [place] [address] Kavin Interiano MD Coronary artery disease involving little shell tribe coronary artery of little shell tribe heart without angina pectoris (Primary Dx); Chronic atrial fibrillation (HCC); Essential hypertension, benign; H/O mitral valve repair; NSVT (nonsustained ventricular tachycardia) (HCC); Syncope, unspecified syncope type 01/25/2024 Orders Only [facility] [address] [place] [address] Unknown, Notinfile from Last 3 Months Surgical History Surgery Date Site/Laterality Comments KNEE SURGERY ABDOMINAL SURGERY KNEE ARTHROSCOPY W/ MENISCECTOMY Right HEMORROIDECTOMY N/A CORONARY ARTERY BYPASS GRAFT MITRAL VALVE REPAIR CARDIAC CATHETERIZATION Medical History Medical History Date Comments Hypertension Hypertension History of major abdominal surgery H/O: major abdominal surgery History of knee surgery History of knee surgery Coronary artery disease Arrhythmia NSVT (nonsustained ventricular tachycardia) (HCC ) Syncope Family History Medical History Relation Name Comments Stroke Brother 2 Stroke; Cancer Father Cancer, unknown ; Other Father BYPASS; /OTHER HEART CONDITIONS; Hyperlipidemia Mother Hyperlipidemi a; Hypertension Mother Hypertension; Other Mother HEART CONDITION S; Depression Sister Relation Name Status Comments Brother 1 (Age 63) Brother 2 Alive Father Mother (Age 92) Sister Alive Social History Tobacco Use Types [...] on file Legal Sex Male 5:43 PM PATTERN PAINTER Gender Identity Not on file Sexual Orientation Not on file Obstetrics History Last Filed Vital Signs Vital Sign Reading Time Taken Comments Blood Pressure 132/80 02/05/2024 10:11 AM PATTERN PAINTER Pulse 62 02/05/2024 10:11 AM PATTERN PAINTER Temperature 36.8 ??C (98.2 ??F) 04/27/2022 8:16 AM CS T Respiratory Rate 16 05/17/2022 11:42 AM PATTERN PAINTER Oxygen Saturation 99% 02/05/2024 10:11 AM PATTERN PAINTER Inhaled Oxygen Concentration - - Weight 102 kg (224 lb 14.4 oz) 02/05/2024 10:11 AM PATTERN PAINTER Height 180.3 cm (5' 11 ) 02/05/2024 10:11 AM PATTERN PAINTER Body Mass Index 31.37 02/05/2024 10:11 AM PATTERN PAINTER Plan of Treatment Health Maintenance Due Date Last Done Comments Depression Screening 1945 Hepatitis B Screening 05/25/1961 Zoster Vaccine (1 of 2) 05/25/1993 Abdominal Aortic Aneurysm (A AA) Screen 05/25/2008 Well Visit 65+ 05/25/2008 DTaP/Tdap/Td Vaccine (1 - Tdap) 06/03/2017 06/02/2017, 12/20/2004, 02/06/1995 Pneumococcal vaccine 65+ (3 of 3 - PPSV23 or PCV20) 02/10/2018 02/10/2017, 04/16/2007 Fall Risk Assessment 04/27/2023 04/27/2022 Influenza Vaccine (#1) 2023 Medical Devices Implanted Type Area Etcher Enameling Device Identifier Shelf Expiration Date Model / Serial / Lot Ring Annuloplasty Edda ds Physio Ii Cocr Silicone Polyester Od32 Mm Mitral Salguero Sew Sterile Heart Valve Repair - [id number] - [id number] Implanted:Qty: 1 on 02/24/2017 by Buddy Arzate MD at [facility] Other - see comments N/A: Heart [employer] 02/17/2021 [id number] / [id number] / Description:Mitral annulopla sty ring [employer] Angio-Seal Vip 6fr Closere Device [id number] - [id number] Implanted:Qty: 1 on 04/27/2022 by Kavin Interiano MD at [facility] [employer] 01/17/2023 [id number] / / [id number] Procedures Procedure Name Priority Date/Time Associated Diagnosis Comments SURGICAL PATHOLOGY Routine 01/25/2024 10 :00 AM PATTERN PAINTER from Last 3 Months Results * Surgical pathology (01/25/2024 10:00 AM PATTERN PAINTER) Skin, shave biopsy 01/25/2024 10:00 AM PATTERN PAINTER 01/26/2024 7:54 AM PATTERN PAINTER Narrative 01/30/2024 4:24 PM PATTERN PAINTER EPIC results best viewed via link to PDF [facility] [address] [place] [address] Ave., ??[address] [place] [address] ? [email or web address] Note to Patients: ??This report may [...] FINAL REPORT Patient Information: PATIENT NAME: ??DANA SAGE ? SEX: ??M ? : ??1945 (Age: 78) ? Specimen Information: COLLECTED: ??01/25/2024 ? RECEIVED: ??01/26/2024 ? REPORTED: ??01/30/2024 ? Submitting Physician Information: GREGG [facility], [address] [place] [address] ??[id number], ? DERMATOPATHOLOGY REPORT RESULTS ?? DIAGNOSIS: SKIN, [...] than those at the time of procedure. [facility] Clerical Data A; 48490, 27964-DA, 34771 IHC, 76698 IHC The characteristics of special, immunohistochemical, and immunofluorescence stains and in-situ hybridization tests performed by the [facility] were deemed acceptable in ongoing clinical quality assurance specialist measures and in compliance with regulations drawn from the Clinical Laboratory Improvement Act ay9413 (CLIA '88). Control reactions for all stains performed were deemed adequate and appropriate by a pathologist prior to evaluation of patient tissue. Some diagnoses were rendered with the assistance of laboratory-developed tests utilizing analyte-specific reagents; the performance characteristic of these tests were determined by [facility] and are not cleared or approved by the [place] Food an Drug administration. Laboratory developed test may only be performed in a facility that is certified by the [facility] as a high-complexity laboratory under CLIA '88. These tests are used for clinical purposes and are not investigational. us Notinfile Unknown LAB PATHOLOGY ORDERABLES Final Result from Last 3 Months Insurance MEDICARE BLUE ACCESS OOS MEDICARE [facility]ED [facility] OOS MEDICARE Advance Directives For more information, please contact: [phone] * Full Code (Latest Code Status on File) Date Activated Date Inactivated Comments 04/27/2022 10:36 AM 04/27/2022 4:58 PM * Full Code Date Activated Date Inactivated Comments 02/22/2017 4:23 PM 03/04/2017 3:39 PM Care Teams Sewage Screen Operator Relationship Specialty Start Date End Date Donovan Read MD PCP - General Family Practice 07/10/18
--- OUTSIDE RECORDS SUMMARY | 2024-04-18 09:47 | XMS_ITS | Clinical Summary ---
Author Organization [facility] Address [facility]. [place], [place] [address] [place] [address] Care Team Providers Care Agricultural Specialist Name Role Phone Unavailable Primary Care Provider Unavailabl e Social History Tobacco Use Types Packs/Day Years Used Date Smoking Tobacco: Never Assessed Sex and Gender Information Value Date Recorded Sex Assigned at Not on file Legal Sex Male 7:27 PM CDT Gender Identity Not on file Sexual Orientation Not on file Plan of Treatment Health Maintenance Due Date Last Done Comments Zoster Vaccines (1 of 2) 05/25/1993 DTaP, Tdap and Td Vaccines ( 1 - Tdap) 06/03/2017 06/02/2017, 12/20/2004, 02/06/1995 RSV Immunization or 60+ Years (1 - 1-dose 75+ series) 05/25/2018 Pneumococcal Vaccine: 65+ Years (3 of 3 - PPSV23 or PCV20) 02/10/2022 02/10/2017, 04/16/2007 COVID-19 Vaccine (4 - 2023-2 5 season) 2023 12/21/2020, 06/06/2020, 05/15/2020 Influenza Adult (#1) 2023 12/21/2020, 02/04/2020 Meningococcal B Vaccine Aged Out No l onger eligible based on patient's age to complete this topic Meningococcal Vaccine Aged Out No quintin mauricio eligible based on patient's age to complete this topic RSV Immunizations Under 20 Months Aged Out No longer eligible b ased on patient's age to complete this topic
[2024-04-18 16:17] LABS: Basophils Absolute Auto 0.1 K/mm3 (0.0-0.1); Basophils Percent Auto 0.9 % (0.2-1.2); Eosinophils Absolute Auto 0.2 K/mm3 (0-0.3); Eosinophils Percent Auto 3.1 % (0-4.4); Hematocrit 42.5 % (42.0-52.0); Hemoglobin 13.1 g/dL (14.0-18.0); Immature Granulocyte Absolute 0.01 K/mm3 (0.00-0.031); Immature Granulocyte Percent A 0.2 % (0-0.5); Lymphocytes Absolute Auto 1.26 K/mm3 (0.9-3.2); Lymphocytes Percent Auto 23.3 % (18.3-44.2); Mean Corpuscular HGB Conc 30.8 g/dl (32-36); Mean Corpuscular Hemoglobin 28.1 pg (26-34); Mean Platelet Volume 11.2 fl (7.4-10.4); Monocytes Absolute Auto 0.9 K/mm3 (0.1-0.6); Monocytes Percent Auto 16.1 % (2.6-8.5); Neutrophils Percent Auto 56.4 % (45.5-73.1); Platelet Count Result 208 k/mm3 (150-375); Red Blood Count 4.67 M/mm3 (4.6-6.20); Red Cell Distribution Width 12.7 % (11.5-14.5); White Blood Count 5.4 K/mm3 (4.5-10.0)
[2024-04-18 16:55] LABS: Alanine Aminotransferase 14 U/L (6-50); Albumin Level 4.2 g/dL (3.5-5.1); Alkaline Phosphatase 103 U/L (38-126); Anion Gap 7 mmol/L (4-12); Aspartate Amino Transferase 34 U/L (17-59); Blood Urea Nitrogen 21 mg/dL (9-20); Calcium 9.3 mg/dL (8.4-10.2); Carbon Dioxide 28 mmol/L (22-30); Chloride 103 mmol/L (98-107); Cholesterol 125 mg/dL (0-200); Estimated Glomerular Filt Rate > 60; Glucose 99 mg/dL (65-110); HDL Direct 72 mg/dL; Potassium 4.6 mmol/L (3.4-5.0); Sodium 138 mmol/L (137-145); Triglycerides 65 mg/dL (<150)
[2024-04-18 17:07] LABS: LDL Cholesterol Direct 41 mg/dL
[2024-04-18 17:25] LABS: Prostate Specific Antigen 3.4 ng/mL (< OR = 4.0)
[2024-04-18 17:47] LABS: Vitamin D 25 Hydroxy 48.2 ng/mL
[2024-04-18 17:54] LABS: Iron 47 ug/dL (49-181)
[2024-04-18 18:08] LABS: Folic Acid > 20.0 ng/mL (2.76->20); Percent Iron Saturation 11 % (20-50)
[2024-04-18 21:12] LABS: Hemoglobin A1C 5.2 % (<5.7)
== END 2024-04-18 09:17 | disposition home or self-care (01) ==
PROVIDERS: PCP Family Medicine; Visit Provider Family Medicine
DX: I10 Essential (primary) hypertension (principal); Z12.5 Encounter for screening for malignant neoplasm of prostate; D50.9 Iron deficiency anemia, unspecified; Z00.00 Encounter for general adult medical examination without abnormal findings; R73.9 Hyperglycemia, unspecified; E78.5 Hyperlipidemia, unspecified; E55.9 Vitamin D deficiency, unspecified
CPT/HCPCS: 36415; 80053; 80061; 82306; 82607; 82728; 82746; 83036; 83540; 83550; 84153; 84443; 85025; G0103

== ENCOUNTER 2024-05-27 09:18 | Outpatient (CLI) | payer MEDICARE, BC, SELFPAY ==
[2024-05-27 09:35] LABS: Hematocrit 42.6 % (42.0-52.0); Hemoglobin 13.3 g/dL (14.0-18.0); Mean Corpuscular HGB Conc 31.2 g/dl (32-36); Mean Corpuscular Hemoglobin 26.8 pg (26-34); Mean Corpuscular Volume 85.9 fl (80-100); Mean Platelet Volume 9.7 fl (7.4-10.4); Platelet Count Result 225 k/mm3 (150-375); Red Blood Count 4.96 M/mm3 (4.6-6.20); Red Cell Distribution Width 13.3 % (11.5-14.5); White Blood Count 5.6 K/mm3 (4.5-10.0)
--- OUTSIDE RECORDS SUMMARY | 2024-05-27 10:25 | XMS_ITS | Data Portability ---
Author Organization [facility] [employer], Main Office Address [address] [place] [address] Care Team Providers Care Computer Graphics Illustrator Name Role Phone ANGIE LING Primary Care Provider [phone] ANGIE LING Referring Provider Assessment Encounter Date Assessment Date Assessment LastModified by Organization Details LastModified Time 06/06/2022 06/06/2022 Patient returns need for knee arthritis right. He was scheduled to have surgery because of COVID multiple other issues he was not able to have it at that point he wants to get back on the schedule he will call when he is ready we I discussed the surgical options risks benefits limitations and alternatives again with him in detail he has had the surgical class will proceed per his request discussed. In the meantime I injected with 20 mg Kenalog 4 cc 1% lidocaine for pain and inflammation. carlos Not available 06/06/2022 09:18:17 Plan of Treatment Reminders Order Date Submit Date Provider Last Modified By Organization Details Last Modified Time Details Appointments None recorded. Lab None recorded. Referral None recorded. Procedures injection/a spiration joint/bursa (PROC) - in office procedure, administere d by provider 2022 023 [email or web address] In-Office Order, Internal Use Only DO Not Attach Compendium DO Not Attach Compendium, Do Not Delete/merge, [address] 09:11:09 Surgeries None recorded. Imaging None recorded. Medication Orders Kenalog 10 mg/mL suspension for injection 2022 023 ginny [facility], [address] [facility], [place], [address], 09:13:19 ropivacaine (PF) 5 mg/mL (0.5 %) injection solution 2022 023 ginny [address] [facility], [address], [place], [address], 3 09:13:19 Patient TargetsNo targets recorded. Patient InstructionsNo instructions recorded. Reason for Referral None Reported. Results Created Date Observation Date Name Description Value Unit Range Abnormal Flag Note LastModifiedBy Organization Detail LastModifiedTime 09/22/19 22 XR, knee, 3 view No observ ation record ed. [id number] [facility] [place] [address], [place], [address], 05/18/2022 03:29:30 Result Notes None recorded. Problems Name Problem SNOMED Code Status Onset Date Resolution Date Notes Provider Name and Address Organization Details Recorded Time Arthritis of right knee 3204974850613 102 Active 2020 Not Available [facility] 3 03:07:54 Osteoarthr itis of knee 634166351 Active Not Available [facility] 3 03:07:54 Osteoarthr itis of right knee joint 1566243730977 00 Active 2020 Not Available [facility] 3 03:07:55 Problem Notes None recorded. Procedures Surgical History Date Name Laterality Status Provider Name and Address Organization Details Recorded Time 3 Ortho - Cortisone Injection completed Steve Holman MD [address] [facility] [address], [place], [address], [facility] 06/06/2022 09:17:34 Imaging Results Imaging Date Name Status LastModified by Organiz ation Details LastModified Time 09/21/2021 XR, knee, 3 view completed [id number] [facility] [place] [address], [place], [address], 05/18/2022 03:29:30 Procedure Notes None recorded. Medical Equipment None Reported. Medications Name Sig Start Date Stop Date Status Note LastModified by Organization Details LastModified Time losartan 50 mg tablet TAKE 1 TABLET BY MOUTH ONCE DAILY active Not Available Not Available No t Available amoxicillin 500 mg capsule TAKE FOUR CAPSULES BY MOUTH ONE HOUR BEFORE APPOINTME NT active Not Available Not Available No t Available prednisone 10 mg tablet TAKE 1 TABLET BY MOUTH THREE TIMES DAILY FOR 3 DAYS THEN 1 TAB TWICE DAILY FOR 2 DAYS THEN 1 TAB ONCE DAILY FOR 1 DAY 01/28 completed Not Available Not Available Not Available oxybutynin chloride ER 15 mg tablet,exte nded release 24 hr active Not Available Not Available Not Available atorvastati n 20 mg tablet TAKE 1 TABLET BY MOUTH ONCE DAILY AT BEDTIME active Not Available Not Available No t Available triamcinolo ne acetonide 0.5 % topical cream APPLY CREAM TOPICALLY TO AFFECTED AREA ONCE DAILY active Not Available Not Available No t Available azithromyci n 250 mg tablet TAKE 2 TABLETS BY MOUTH ON DAY 1, AND THEN TAKE 1 TABLET BY MOUTH ONCE A DAY ON DAY 2 THROUGH DAY 5 active Not Available Not Available No t Available indapamide 2.5 mg tablet 05/01 completed Not Available Not Available Not Available lisinopril 20 mg tablet Take 1 tablet every day by oral route. 2020 active Not Available Not Available Not Avai lable clopidogrel 75 mg tablet Take 1 tablet every day by oral route. 2020 active Not Available Not Available Not Avai lable prednisone 10 mg tablets in a dose pack Take 1 tab by mouth, 3 times a day for 3 daysTake 1 tab by mouth 2 times a day for 2 daysTake 1 tab by mouth once a day for 1 day 01/28 completed Not Available Not Available Not Available tamsulosin 0.4 mg capsule TAKE 1 CAPSULE BY MOUTH ONCE DAILY active Not Available Not Available No t Available Kenalog 10 mg/mL suspension for injection Take 20 mg by injection route. 2022 active [facility]: 0003- 0494- 20 Not Available Not Available Not Available benzonatate 100 mg capsule TAKE 1 CAPSULE BY MOUTH THREE TIMES DAILY NEEDED FOR COUGH active Not Available Not Available No t Available omeprazole 20 mg capsule,del ayed release Take 1 capsule every day by oral route. 2020 active Not Available Not Available Not Avai lable metoprolol succinate ER 25 mg tablet,exte nded release 24 hr TAKE 1 TABLET BY MOUTH ONCE DAILY active Not Available Not Available No t Available methylpredn isolone 4 mg tablets in a dose pack TAKE BY MOUTH DIRECTED ON INSIDE OF PACKAGE active Not Available Not Available No t Available fluticasone propionate 50 mcg/actuati on nasal spray,suspe nsion USE 2 SPRAY(S) IN EACH NOSTRIL ONCE DAILY active Not Available Not Available No t Available finasteride 5 mg tablet TAKE 1 TABLET BY MOUTH ONCE DAILY active Not Available Not Available No t Available loratadine 10 mg tablet TAKE 1 TABLET BY MOUTH ONCE DAILY active Not Available Not Available No t Available amoxicillin 875 mg-potassiu m clavulanate 125 mg tablet TAKE 1 TABLET BY MOUTH TWICE DAILY active Not Available Not Available No t Available dutasteride 0.5 mg capsule TAKE 1 CAPSULE BY MOUTH ONCE DAILY active Not Available Not Available No t Available ORTHOVISC 30 mg/2 mL intra-artic ular syringe Inject 2 mL every week by intra-art icular route. 09/21 completed Not Available Not Available Not Available saw palmetto 2020 active Not Available Not Available Not Avai lable aspirin 2020 active Not Available Not Available Not Avai lable Complete Multivitami n 2020 active Not Available Not Available Not Avai lable [place] 3 Fish Oil 2020 active Not Available Not Available Not Avai lable lidocaine (PF) 10 mg/mL (1 %) injection solution In office injection administe red by the provider 01/28 completed NDC: 0409- 4276- 17 Not Available Not Available Not Available metformin ER 1,000 mg 24 hr tablet,exte nded release (gastric reten.) Take 1 tablet every day by oral route. 2020 active Not Available Not Available Not Avai lable ropivacaine (PF) 5 mg/mL (0.5 %) injection solution Take 20 mg by injection route. 2022 active Not Available Not Available Not Avai lable Xarelto 20 mg tablet active Not Available Not Available No t Available calcium 195 mg (as calcium carbonate 500 mg) chewable tablet Take by oral route. 2020 active Not Available Not Available Not Avai lable Supartz FX 10 mg/mL intra-artic ular syringe Injection s given in the office by the doctor 09/21 completed NDC: [address] -1 Not Available Not Available Not Available Move Free On [facility] 2020 active Not Available Not Available Not Avai lable Vitals Date Recorded Body height Body mass index (BMI) Body weight Provider Name and Address Organization Details Last Updated DateTime 06/06/2022 182.88 cm 32 kg/m2 608349.8 g Bela Salazar CNA [facility] 06/06/2022 09:09:39 Date Recorded Body mass index (BMI) Body height Body weight Provider Name and Address Organization Details Last Updated DateTime 01/28/2021 31.2 kg/m2 182.88 cm 505238.25 g Not Available [facility] 05/18/2022 03:03:20 Date Recorded Body mass index (BMI) Body height Pain severity - 0-10 verbal numeric rating [Score] - Reported Body weight Provider Name and Address Organization Details Last Updated DateTime 02/04/2021 31.2 kg/m2 182.88 cm 2 093147.25 g Not Available [facility] 05/18/2022 03:03:20 Date Recorded Body mass index (BMI) Body height Body weight Provider Name and Address Organization Details Last Updated DateTime 09/21/2021 31.2 kg/m2 182.88 cm 365127.25 g Not Available [facility] 05/18/2022 03:03:20 Date Recorded Body mass index (BMI) Body height Body weight Provider Name and Address Organization Details Last Updated DateTime 02/22/2022 30.9 kg/m2 182.88 cm 305307.06 g Not Available [facility] 05/18/2022 03:03:20 Social History Question Answer Notes LastModified by Organizat ion Details LastModified Time Tobacco Smoking Status Never Smoker Not Available [facility] 05/18/2022 02:50:33 What Is Your Level Of Alcohol Consumption? Occasional [id number] Information not available 05/18/2022 Sex: Unknown Functional Status None recorded. Mental Status None recorded. Family History Relationship Description Onset Age of this Age Resolved Age Notes LastModified by Organization Details LastModified Time Father Family history of malignant neoplasm [id number] Not available 05/18/2022 02:55:19 Father Hypertensive disorder [id number] Not available 05/18/2022 02:55:19 Mother Hypertensive disorder [id number] Not available 05/18/2022 02:55:19 Medical History Condition Response HEART DISEASE/HEART PROBLEMS Y HYPERTENSION Y Past Encounters Encounter ID Performer Location Encounter Start Date Encounter Closed Date Diagnosis/Indication Diagnosis SNOMED-CT Code Diagnosis ICD10 Code Diagnosis Note [id number] [facility] [place] [address] [place] [address] 06/11/2020 00:00:00 06/11/2020 11:37:11 [id number] [facility] [place] [address] [place] [address] 06/18/2020 00:00:00 06/18/2020 11:38:58 [id number] [facility] [place] [address] [place] [address] 06/25/2020 00:00:00 06/25/2020 10:08:38 [id number] [facility] [place] [address] [place] [address] 11/26/2020 00:00:00 11/26/2020 11:43:32 [id number] [facility] [place] [address] [place] [address] 01/07/2021 00:00:00 01/07/2021 09:29:38 [id number] [facility] [place] [address] [place] [address] 01/14/2021 00:00:00 01/14/2021 10:43:02 [id number] [facility] [place] [address] [place] [address] 01/21/2021 00:00:00 01/21/2021 10:59:30 [id number] [facility] [place] [address] [place] [address] 01/28/2021 00:00:00 01/28/2021 10:32:51 [id number] [facility] [place] [address] [place], [place] [address] 02/04/2021 00:00:00 02/04/2021 10:53:55 [id number] [facility] [place] [address] [place], [place] [address] 09/21/2021 00:00:00 09/21/2021 14:54:54 [id number] [facility] [place] [address] [place], [place] [address] 02/22/2022 00:00:00 02/22/2022 14:57:23 [id number] Steve Holman MD [facility] [place] [address] [facility] [address] [place] [address] 06/06/2022 09:03:17 06/06/2022 10:10:09 Arthritis of right knee 4832564405 423551 M13.861 Osteoarthr itis of knee 644208311 M17.11 Osteoarthr itis of right knee joint 5720682313 85953 M17.11 Health Concerns Section Related Observation LastModified by Organization Detai ls LastModified Time None Recorded Concern Status LastModified by Organization Details LastModified Time None Recorded Advance Directives Directive None Recorded Payers Encounter Date Sequence Insurance Name Policy Number Policy Salguero Covered Member ID Salguero Member ID Guarantor Name 06/06/2022 1 [place] Augie Bunn [id number] Augie Griffithy 06/06/2022 2 [place] [id number] Augie Griffithy [id number] Augie Bunn Notes Date Note Type Note Provider Name and Address Organization Details Recorded Time 06/06/2022 text/html Patient returns arthritis right knee. He got canceled a couple of times and really benefit from knee replacement surgery he is back now because it like a shot as he can have the knee replaced couple months. Steve Holman MD [address] [place] [address], [place] [address], [place], [address], [facility] [employer] [facility] 06/06/2022 09:19:18
[2024-05-27 10:57] LABS: Iron 53 ug/dL (49-181)
[2024-05-27 11:11] LABS: Percent Iron Saturation 12 % (20-50)
== END 2024-05-27 09:19 | disposition home or self-care (01) ==
LOC: ANHLAB 09:20
PROVIDERS: PCP Family Medicine; Visit Provider Internal Medicine Hematology & Oncology
DX: D50.0 Iron deficiency anemia secondary to blood loss (chronic) (principal)
CPT/HCPCS: 36415; 82728; 83540; 83550; 85027

== ENCOUNTER 2024-10-01 13:24 | Outpatient (CLI) | payer MEDICARE, BC, SELFPAY ==
--- OUTSIDE RECORDS SUMMARY | 2024-10-01 13:28 | XMS_ITS | Encounter Summary ---
Author Organization [facility] Address [address] [facility] [address] [place] [address] Care Team Providers Care Electric Truck Crane Operator Name Role Phone Flavio Sanchez MD Primary Care Provider [phone] Mattie Dash MD Primary Care Provider [phone] Donovan Read MD Primary Care Provider Encounter Details Date Type Department Care Team (Late st Contact Info) Description 07/18/2016 Orders Only [facility] ProviderJordan MD [address] [place] [address] Social History Tobacco Use Types Packs/Day Years Used Date Smoking Tobacco: Former Cigarettes Q uit: 03/20/1981 Alcohol Use Standard Drinks/Week Comments Yes 0 (1 standard drink = 0.6 oz pur e alcohol) Sex and Gender Information Value Date Recorded Sex Assigned at Not on file Legal Sex Male 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
--- OUTSIDE RECORDS SUMMARY | 2024-10-01 13:28 | XMS_ITS | Clinical Summary ---
Author Organization [facility] Bradley Rubio Address [address] [place] [address] Care Team Providers Care Hatchery Helper Name Role Phone Donovan Read MD Primary [...] 2 Active fluticasone propionate (FLONASE) 50 mcg/spray [employer], Suspension nasal inhaler Administer 2 Sprays in [...] Take 500 mg by mouth daily. Active DICLOFENAC SODIUM TOPICAL Apply 1 % to affected area daily. Active Active Problems Problem Noted Date Diagnosed Date Anemia 06/13/2023 Encounters Date Type Department Care Team Description 09/03/2024 External Device Data ST[facility] ABSTRACTION Provider, Abstract 08/13/2024 External Device Data ST[facility] ABSTRACTION Provider, Abstract 08/08/2024 External Device Data [facility] ABSTRACTION Provider, Abstract 08/07/2024 External Device Data ST[place] ABSTRACTION Provider, Abstract 08/06/2024 External Device Data ST[place] ABSTRACTION Provider, Abstract 07/23/2024 External Device Data STL ABSTRACTION Provider, Abstract [...] Sign Reading Time Taken Comments Blood Pressure 122/62 05/28/2024 11:21 AM CDT Pulse 74 05/28/2024 11:21 AM CDT Temperature 35.9 C (96.7 F) 05/28/2024 11:21 AM CDT Respiratory Rate 15 05/28/2024 11:21 AM CDT Oxygen Saturation 92% 05/28/2024 11:21 AM CDT Inhaled Oxygen Concentration - - Weight 101.6 kg (224 lb) 05/28/2024 11:21 AM CDT Height 182.9 cm (6') 06/13/2023 1:34 PM CDT Body Mass Index 30.38 06/13/2023 1:34 PM CDT Plan of Treatment Upcoming Encounters Date Type Department Care Team (Late st Contact Info) Description 10/03/2024 2:15 PM CDT Office Visit [facility] Oncology and Hematology [facility] [address] [place] [address] Haris Lozano MD [address] [facility] [address] [place] [address] Health Maintenance Due Date Last Done Comments DTAP/TDAP/TD VACCINES (1 - Tdap) 05/25/1962 PNEUMOCOCCAL VACCINE 50+ YEARS (1 of 2 - PCV) 05/25/18 61 Traditional Medicare (O) Annual Wellness Visit 05/25 ZOSTER VACCINE (1 of 2) 05/25/1993 RSV VACCINE (60+ or ) (1 - 1-dose 75+ series) 05/25/2018 INFLUENZA VACCINE (#1) 2024 Insurance MEDICARE PART A AND B [employer] P[employer] Care Teams Hatchery Helper Relationship Specialty Start Date End Date Donovan Read MD [address] [facility] [place] [place] [address] PCP - General Family Practice 06/13/23
--- OUTSIDE RECORDS SUMMARY | 2024-10-01 13:28 | XMS_ITS | Clinical Summary ---
Author Organization [facility] [address] Address [address] [place] [address] Care Team Providers Care Financial Risk Manager Name Role Phone Donovan Read MD Primary [...] (50 mg total) by mouth daily Active mwzjq-3-waa-epa -dpa-fish oil 1,050-1,200 mg capsule 1 capsule [...] 1 Active rivaroxaban (Xarelto) 20 mg tablet TAKE 1 TABLET BY MOUTH DAILY 90 tablet 1 5 Active Active Problems Problem Noted Date Diagnosed Date NSVT (nonsustained ventricular tachycardia) 03/21 Overview (04/11/2022): Added automatically from request for surgery [id number] Chronic atrial fibrillation 03/02/2020 H/O mitral valve repair 03/05/2018 Encounter for removal of sutures 07/03/2017 Assessment & Plan (07/03/2017 8:24 AM CDT): I removed 1 suture from 1 of the incisions Coronary artery disease invo lving [place] coronary artery of [place] heart without angina pectoris 02/23/2017 Assessment & Plan (07/03/2017 8:20 AM CDT): Continue aspirin and Lipitor. Assessment & Plan (03/28/2017 1:31 PM SPORTS EQUIPMENT RACKER): Status post CABG. Continue aspirin, Lipitor . He is not candidate for beta- lul because of previous seizures/syncope. Essential hypertension, benign 11/07/2016 Assessment & Plan (07/03/2017 8:19 AM CDT): Blood pressure is well controlled. Continue losartan 50 mg daily. Assessment & Plan (03/28/2017 1:30 PM SPORTS EQUIPMENT RACKER): Blood pressure is elevated. Add losartan 25 mg p.o. daily. Assessment & Plan (01/02/2017 9:20 AM CDT): Blood pressure is controlled. Continue current meds Assessment & Plan (11/07/2016 8:40 AM CDT): Controlled. Continue current medications Syncope Assessment & Plan (03/28/2017 1:32 PM SPORTS EQUIPMENT RACKER): Patient was started on metoprolol preoperatively and [...] 03/05/2018 Assessment & Plan (03/28/2017 1:30 PM SPORTS EQUIPMENT RACKER): Status post mitral valve repair. Continue aspirin [...] Encounters Date Type Department Care Team Description 08/26/2024 Results Follow-Up [facility] Cardiology [address] [place] [address] [place] [address] Asa Interiano MD Transthoracic Echo (TTE) Complete W Doppler/CF 08/22/2024 11:15 AM CDT Ancillary Procedure [facility] [address] [place] [address] H/O mitral valve repair; Coronary artery disease involving [place] coronary artery of [place] heart without angina pectoris; Chronic atrial fibrillation (HCC) 08/05/2024 9:15 AM CDT Office Visit [facility] Card[facility] [address] [place] [address] Asa Interiano MD H/O mitral valve repair (Primary Dx); Coronary artery disease involving [place] coronary artery of [place] heart without angina pectoris; Chronic atrial fibrillation (HCC); NSVT (nonsustained ventricular tachycardia) (HCC); Essential hypertension, benign from Last 3 Months Surgical History Surgery [...] Q uit: 01/02/1971 Smokeless Tobacco: Former Quit: 1993 Tobacco Cessation:Counseling Given: Not Answered Alcohol Use [...] on file Legal Sex Male 5:43 PM SPORTS EQUIPMENT RACKER Gender Identity Not on file Sexual Orientation Not on file Obstetrics History Last Filed Vital Signs Vital Sign Reading Time Taken Comments Blood Pressure 122/64 08/05/2024 9:04 AM CDT Pulse 87 08/05/2024 9:04 AM CDT Temperature 36.8 C (98.2 F) 04/27/2022 8:16 AM SPORTS EQUIPMENT RACKER Respiratory Rate 16 05/17/2022 11:42 AM SPORTS EQUIPMENT RACKER Oxygen Saturation 99% 08/05/2024 9:04 AM CDT Inhaled Oxygen Concentration - - Weight 102.5 kg (226 lb) 08/05/2024 9:04 AM CDT Height 180.3 cm (5' 11) 08/05/2024 9:04 AM CDT Body Mass Index 31.52 08/05/2024 9:04 AM CDT Plan of Treatment Health Maintenance Due Date Last Done Comments Depression Screening 1945 Hepatitis B Screening 05/25/1961 Zoster Vaccine (1 of 2) 05/25/1993 Abdominal Aortic Aneurysm (A AA) Screen 05/25/2008 Well Visit 65+ 05/25/2008 DTaP/Tdap/Td Vaccine (1 - Tdap) 06/03/2017 06/02/2017, 12/20/2004, 02/06/1995 Pneumococcal vaccine 65+ (3 of 3 - PCV20 or PCV21) 02/10/2022 02/10/2017, 04/16/2007 Fall Risk Assessment 04/27/2023 04/27/2022 Influenza Vaccine (Season Ended) 2024 Medical Devices Implanted Type Area Serologist Device Identifier Shelf Expiration Date Model / Serial / Lot Ring Annuloplasty Edda ds Physio Ii Cocr Silicone Polyester Od32 Mm Mitral Salguero Sew Sterile Heart Valve Repair - [id number] - [id number] Implanted:Qty: 1 on 02/24/2017 by Buddy Arzate MD at [facility] Other - see comments N/A: Heart [employer] 02/17/2021 [id number] / [id number] / Description:Mitral annulopla sty ring [employer] Angio-Seal Vip 6fr Closere Device [id number] - [id number] Implanted:Qty: 1 on 04/27/2022 by Asa Interiano MD at [facility] [employer] 01/17/2023 [id number] / / [id number] Procedures Procedure Name Priority Date/Time Associated Diagnosis Comments TRANSTHORACIC ECHO (TTE) COMPLETE W DOPPLER/CF WO CONTRAST Routine 08/22/2024 11:49 AM CDT H/O mitral valve repair Coronary artery disease involving [place] coronary artery of [place] heart without angina pectoris Chronic atrial fibrillation (HCC) from Last 3 Months Results * TRANSTHORACIC ECHO (TTE) COMPLETE W DOPPLER/CF WO CONTRAST (08/22/2024 11:49 AM CDT) Estimated EF 65-70 % CONS SCIMAGE EF Mod BP 67 % CONS SCIMAGE Anatomical Region Laterality Modality Ultrasound 08/22/2024 11:1 0 AM CDT Narrative 08/22/2024 5:04 PM CDT [facility] Cardiology [address] [facility] [address] [place] [id number] [address] [facility] [address] [place] [address], [place] [address] P:[phone] P:[phone] Echocardiographic Report Patient Name: DANA BUNN M : 1945 Study Date: 08/22/2024 11:10:57 AM Gender: M Tech: Location: [place] Ref Provider: ASA INTERIANO Height(Cm): 180 BSA: 2.26 Weight(Kg): 102.5 Heart Rate: 67 BP: 122 / 64 Quality: Good Order Provider: ASA INTERIANO PROCEDURES: Echocardiographic Report: Transthoracic echocardiogram with complete 2D, M-Mode, and color Doppler examination. INDICATIONS: Z98.890 Other specified postprocedural states, I25.10 Atherosclerotic heart disease of [place] coronary artery without angina pectoris, and I48.20 Chronic atrial fibrillation, unspecified. MEASUREMENTS: 2D/MM Value Range Doppler Value Range EF Mod BP 67 % [ 52 - 72 ] CHIN Vmax 2.37 cm2 [ 2.00 - 4.00 ] EF Teich MM 62 % [ 52 - 72 ] AV Mean PG 5 mmHg Estimated EF 65-70 % AV Peak Eliu 1.37 m/s [ 1.00 - 1.70 ] LVIDd 2D 5.15 cm [ 4.20 - 5.80 ] AV Peak PG 8 mmHg LVIDd MM 5.75 cm [ 4.20 - 5.80 ] AV VTI 26.94 cm LVIDs 2D 3.52 cm [ 2.50 - 4.00 ] LVOT Diam 2.07 cm [ 1.70 - 2.10 ] LVIDs MM 3.80 cm [ 2.50 - 4.00 ] LVOT Peak Eliu 0.97 m/s [ 0.70 - 1.10 ] LVPWd 2D 1.02 cm [ 0.60 - 1.00 ] LVOT VTI 18.73 cm LVPWd MM 0.99 cm [ 0.60 - 1.00 ] MV E Peak Eliu 1.56 m/s [ 0.60 - 1.30 ] IVSd 2D 0.94 cm [ 0.60 - 1.00 ] MV A Peak Eliu 1.52 m/s [ 1.00 - 1.20 ] IVSd MM 1.06 cm [ 0.60 - 1.00 ] MV Mean PG 4 mmHg [ 0 - 5 ] LA Dimension MM 4.93 cm [ 3.00 - 4.00 ] MV PHT 65 msec [ 20 - 100 ] AoR Diam MM 4.04 cm [ 3.10 - 3.70 ] MVA PHT 3.40 cm2 [ 2.00 - 4.00 ] LA Volume Index 48 cc/m2 [ 16 - 34 ] MV Decel Time 279 msec [ 104 - 258 ] ACS MM 2.47 cm [ 1.50 - 2.60 ] PV Peak Eliu 0.85 m/s [ 0.40 - 0.80 ] TR Peak Eliu 2.94 m/s [ 1.00 - 2.80 ] TR Peak PG 35 mmHg Lateral E` 0.10 m/s [ 0.10 - 0.15 ] E` 0.05 m/s E/E` 16 2D/MM Value Range Doppler Value Range - FINDINGS: Interpretation Site: Exam was interpreted at [facility]. Left Ventricle: Normal left ventricular systolic function. No focal wall motion abnormalities. Normal left ventricular size. Mild concentric left ventricular hypertrophy. Impaired diastolic relaxation Grade I. Ejection fraction is measured at 67 %. Ejection Fraction is visually estimated to be 65-70 %. Right Ventricle: Normal right ventricular size. Normal right ventricular systolic function. Left Atrium: There is moderate enlargement of left atrium. Right Atrium: The right atrium is normal in size. Atrial Septum: Normal atrial septum. Mitral Valve: Mitral valve leaflets appear severely thickened. Annular region thickened with prior annuloplasty. Mild mitral valve regurgitation. Mild mitral stenosis. Peak gradient of 12.00 mmHg. Mean gradient of 6.00 mmHg. Aortic Valve: No evidence of hemodynamically significant aortic stenosis by Doppler. Aortic cusps appear mildly sclerotic. Trileaflet aortic valve. Trace aortic valve regurgitation. Tricuspid Valve: Normal appearance of the tricuspid valve. Mild pulmonary hypertension based on right ventricular systolic pressure. Estimated peak RVSP is 35-40 mmHg. Mild tricuspid regurgitation. Pulmonic Valve: Normal appearance of the pulmonic valve. No pulmonic stenosis. Mild pulmonic regurgitation. Pericardium: Normal pericardium with no significant pericardial effusion. Aorta: Sinus of Valsalva is mildly dilated. Sinus of Valsalva 4.0 cm. IVC: Normal size and normal respiratory collapse consistent with normal right atrial pressure (<5 mmHg). CONCLUSIONS: Normal left ventricular systolic function. No focal wall motion abnormalities. Normal left ventricular size. Mild concentric left ventricular hypertrophy. Impaired diastolic relaxation Grade I. Ejection fraction is measured at 67 %. Ejection Fraction is visually estimated to be 65-70 %. There is moderate enlargement of left atrium. Mitral valve leaflets appear severely thickened. Annular region thickened with prior annuloplasty. Mild mitral valve regurgitation. Mild mitral stenosis. Peak gradient of 12.00 mmHg. Mean gradient of 6.00 mmHg. Mild pulmonary hypertension based on right ventricular systolic pressure. Estimated peak RVSP is 35-40 mmHg. Mild tricuspid regurgitation. Mild pulmonic regurgitation. Sinus of Valsalva is mildly dilated. Sinus of Valsalva 4.0 cm. Normal sinus rhythm. PVCs. Electronically Signed By: Eldon Lennon MD 08/22/2024 5:04:42 PM CDT Procedure Note Eldon Lennon MD - 08/22/2024 [facility] Cardiology [address] [facility] [address], [place] [address] [address] [facility] [id number], [place] [address] P:[phone] P:[phone] Echocardiographic Report Patient Name: DANA BUNN M : 1945 Study Date: 08/22/2024 11:10:57 AM Gender: M Tech: Location: [facility] Provider: ASA INTERIANO Height(Cm): 180 BSA: 2.26 Weight(Kg): 102.5 Heart Rate: 67 BP: 122 / 64 Quality: Good Order Provider: ASA INTERIANO PROCEDURES: Echocardiographic Report: Transthoracic echocardiogram with complete 2D, M-Mode, and color Dopplerexamination. INDICATIONS: Z98.890 Other specified postprocedural states, I25.10 Atheroscleroticheart disease of [place] coronary artery without angina pectoris, and I48.20 Chronic atrialfibrillation, unspecified. MEASUREMENTS: 2D/MM Value Range Doppler ValueRange EF Mod BP 67 % [ 52 - 72 ] CHIN Vmax 2.37cm2 [ 2.00 - 4.00 ] EF Teich MM 62 % [ 52 - 72 ] AV Mean PG 5mmHg Estimated EF 65-70 % AV Peak Eliu 1.37m/s [ 1.00 - 1.70 ] LVIDd 2D 5.15 cm [ 4.20 - 5.80 ] AV Peak PG 8mmHg LVIDd MM 5.75 cm [ 4.20 - 5.80 ] AV VTI 26.94cm LVIDs 2D 3.52 cm [ 2.50 - 4.00 ] LVOT Diam 2.07 cm[ 1.70 - 2.10 ] LVIDs MM 3.80 cm [ 2.50 - 4.00 ] LVOT Peak Eliu 0.97m/s [ 0.70 - 1.10 ] LVPWd 2D 1.02 cm [ 0.60 - 1.00 ] LVOT VTI 18.73cm LVPWd MM 0.99 cm [ 0.60 - 1.00 ] MV E Peak Eliu 1.56m/s [ 0.60 - 1.30 ] IVSd 2D 0.94 cm [ 0.60 - 1.00 ] MV A Peak Eliu 1.52m/s [ 1.00 - 1.20 ] IVSd MM 1.06 cm [ 0.60 - 1.00 ] MV Mean PG 4 mmHg[ 0 - 5 ] LA Dimension MM 4.93 cm [ 3.00 - 4.00 ] MV PHT 65 msec[ 20 - 100 ] AoR Diam MM 4.04 cm [ 3.10 - 3.70 ] MVA PHT 3.40cm2 [ 2.00 - 4.00 ] LA Volume Index 48 cc/m2 [ 16 - 34 ] MV Decel Time 279msec [ 104 - 258 ] ACS MM 2.47 cm [ 1.50 - 2.60 ] PV Peak Eliu 0.85m/s [ 0.40 - 0.80 ] TR Peak Eliu 2.94 m/s [ 1.00 - 2.80 ] TR Peak PG 35 mmHg Lateral E` 0.10 m/s [ 0.10 - 0.15 ] E` 0.05 m/s E/E` 16 2D/MM Value Range Doppler ValueRange - FINDINGS: Interpretation Site: Exam was interpreted at [facility]. Left Ventricle: Normal left ventricular systolic function. No focal wall motionabnormalities. Normal left ventricular size. Mild concentric left ventricular hypertrophy.Impaired diastolic relaxation Grade I. Ejection fraction is measured at 67 %. EjectionFraction is visually estimated to be 65-70 %. Right Ventricle: Normal right ventricular size. Normal right ventricular systolicfunction. Left Atrium: There is moderate enlargement of left atrium. Right Atrium: The right atrium is normal in size. Atrial Septum: Normal atrial septum. Mitral Valve: Mitral valve leaflets appear severely thickened. Annular region thickenedwith prior annuloplasty. Mild mitral valve regurgitation. Mild mitral stenosis. Peakgradient of 12.00 mmHg. Mean gradient of 6.00 mmHg. Aortic Valve: No evidence of hemodynamically significant aortic stenosis by Doppler.Aortic cusps appear mildly sclerotic. Trileaflet aortic valve. Trace aortic valveregurgitation. Tricuspid Valve: Normal appearance of the tricuspid valve. Mild pulmonary hypertensionbased on right ventricular systolic pressure. Estimated peak RVSP is 35-40 mmHg. Mildtricuspid regurgitation. Pulmonic Valve: Normal appearance of the pulmonic valve. No pulmonic stenosis. Mildpulmonic regurgitation. Pericardium: Normal pericardium with no significant pericardial effusion. Aorta: Sinus of Valsalva is mildly dilated. Sinus of Valsalva 4.0 cm. IVC: Normal size and normal respiratory collapse consistent with normal rightatrial pressure (<5 mmHg). CONCLUSIONS: Normal left ventricular systolic function. No focal wall motionabnormalities. Normal left ventricular size. Mild concentric left ventricular hypertrophy.Impaired diastolic relaxation Grade I. Ejection fraction is measured at 67 %. EjectionFraction is visually estimated to be 65-70 %. There is moderate enlargement of left atrium. Mitral valve leaflets appear severely thickened. Annular region thickenedwith prior annuloplasty. Mild mitral valve regurgitation. Mild mitral stenosis. Peakgradient of 12.00 mmHg. Mean gradient of 6.00 mmHg. Mild pulmonary hypertension based on right ventricular systolic pressure.Estimated peak RVSP is 35-40 mmHg. Mild tricuspid regurgitation. Mild pulmonic regurgitation. Sinus of Valsalva is mildly dilated. Sinus of Valsalva 4.0 cm. Normal sinus rhythm. PVCs. Electronically Signed By: Eldon Lennon MD 08/22/2024 5:04:42 PM CDT us sAa Interiano MD CV ECHO PROCEDURES F inal Result from Last 3 Months Insurance MEDICARE BLUE ACCESS OOS MEDICARE ANTH PREFERRED [facility] ACCESS OOS MEDICARE Advance Directives For more information, please contact: [phone] * Full Code (Latest Code Status on File) Date Activated Date Inactivated Comments 04/27/2022 10:36 AM 04/27/2022 4:58 PM * Full Code Date Activated Date Inactivated Comments 02/22/2017 4:23 PM 03/04/2017 3:39 PM Care Teams Financial Risk Manager Relationship Specialty Start Date End Date Donovan Read MD PCP - General Family Practice 07/10/18
--- OUTSIDE RECORDS SUMMARY | 2024-10-01 13:28 | XMS_ITS | Referral Summary ---
Author Organization [place] [address] [address] [place] [address] Care Team Providers Care Publications Sales Representative Name Role Phone Donovan Read MD Primary Care Provider Encounters Date Type Department Care Team Description 08/26/2024 Results Follow-Up [facility] Cardiology [address] [place] [address] [place] [phone] Asa Interiano MD Transthoracic Echo (TTE) Complete W Doppler/CF 08/22/2024 11:15 AM CDT Ancillary Procedure [facility] Cardiology [address] [place] [address] [place] [phone] H/O mitral valve repair; Coronary artery disease involving kenaitze coronary artery of kenaitze heart without angina pectoris; Chronic atrial fibrillation (HCC) 08/05/2024 9:15 AM CDT Office Visit [facility] Cardiology [address] [place] [address] [place] [phone] Asa Interiano MD H/O mitral valve repair (Primary Dx); Coronary artery disease involving kenaitze coronary artery of kenaitze heart without angina pectoris; Chronic atrial fibrillation (HCC); NSVT (nonsustained ventricular tachycardia) (HCC); Essential hypertension, benign from Last 3 Months Allergies Active Allergy [...] (50 mg total) by mouth daily Active yfgxu-5-cpm-epa -dpa-fish oil 1,050-1,200 mg capsule 1 capsule [...] (04/11/2022): Added automatically from request for surgery [id number] Chronic atrial fibrillation 03/02/2020 H/O mitral valve repair 03/05/2018 Encounter for removal of sutures 07/03/2017 Assessment & Plan (07/03/2017 8:24 AM CDT): I removed 1 suture from 1 of the incisions Coronary artery disease invo lving kenaitze coronary artery of kenaitze heart without angina pectoris 02/23/2017 Assessment & Plan (07/03/2017 8:20 AM CDT): Continue aspirin and Lipitor. Assessment & Plan (03/28/2017 1:31 PM CHOCOLATE FINISHER OPERATOR): Status post CABG. Continue aspirin, Lipitor . He is not candidate for beta- lul because of previous seizures/syncope. Essential hypertension, benign 11/07/2016 Assessment & Plan (07/03/2017 8:19 AM CDT): Blood pressure is well controlled. Continue losartan 50 mg daily. Assessment & Plan (03/28/2017 1:30 PM CHOCOLATE FINISHER OPERATOR): Blood pressure is elevated. Add losartan 25 mg p.o. daily. Assessment & Plan (01/02/2017 9:20 AM CDT): Blood pressure is controlled. Continue current meds Assessment & Plan (11/07/2016 8:40 AM CDT): Controlled. Continue current medications Syncope Assessment & Plan (03/28/2017 1:32 PM CHOCOLATE FINISHER OPERATOR): Patient was started on metoprolol preoperatively and [...] 03/05/2018 Assessment & Plan (03/28/2017 1:30 PM CHOCOLATE FINISHER OPERATOR): Status post mitral valve repair. Continue aspirin [...] on file Legal Sex Male 5:43 PM CHOCOLATE FINISHER OPERATOR Gender Identity Not on file Sexual Orientation Not on file Last Filed Vital Signs Vital Sign Reading Time Taken Comments Blood Pressure 122/64 08/05/2024 9:04 AM CDT Pulse 87 08/05/2024 9:04 AM CDT Temperature 36.8 C (98.2 F) 04/27/2022 8:16 AM CHOCOLATE FINISHER OPERATOR Respiratory Rate 16 05/17/2022 11:42 AM CHOCOLATE FINISHER OPERATOR Oxygen Saturation 99% 08/05/2024 9:04 AM CDT Inhaled Oxygen Concentration - - Weight 102.5 kg (226 lb) 08/05/2024 9:04 AM CDT Height 180.3 cm (5' 11) 08/05/2024 9:04 AM CDT Body Mass Index 31.52 08/05/2024 9:04 AM CDT Plan of Treatment Not on file Medical Devices Implanted Type Area Home Care Liaison Device Identifier Shelf Expiration Date Model / Serial / Lot Ring Annuloplasty Edda ds Physio Ii Cocr Silicone Polyester Od32 Mm Mitral Salguero Sew Sterile Heart Valve Repair - [id number] - [id number] Implanted:Qty: 1 on 02/24/2017 by Buddy Arzate MD at [facility] Other - see comments N/A: Heart [employer] 02/17/2021 [id number] / [id number] / Description:Mitral annulopla sty ring [facility] Angio-Seal Vip 6fr Closere Device [id number] - [id number] Implanted:Qty: 1 on 04/27/2022 by Asa Interiano MD at [facility] 01/17/2023 [id number] / [id number] Procedures Procedure Name Priority Date/Time Associated Diagnosis Comments TRANSTHORACIC ECHO (TTE) COMPLETE W DOPPLER/CF WO CONTRAST Routine 08/22/2024 11:49 AM CDT H/O mitral valve repair Coronary artery disease involving kenaitze coronary artery of kenaitze heart without angina pectoris Chronic atrial fibrillation (HCC) from Last 3 Months Results * TRANSTHORACIC ECHO (TTE) COMPLETE W DOPPLER/CF WO CONTRAST (08/22/2024 11:49 AM CDT) Estimated EF 65-70 % CONS SCIMAGE EF Mod BP 67 % CONS SCIMAGE Anatomical Region Laterality Modality Ultrasound 08/22/2024 11:1 0 AM CDT Narrative 08/22/2024 5:04 PM CDT [facility] Cardiology [address], [place], [place] [id number] [address] [facility] [address], [place] [address] P:[phone] P:[phone] Echocardiographic Report Patient Name: DANA BUNN M : 1945 Study Date: 08/22/2024 11:10:57 AM Gender: M Tech: Location: [facility] Provider: ASA INTERIANO Height(Cm): 180 BSA: 2.26 Weight(Kg): 102.5 Heart Rate: 67 BP: 122 / 64 Quality: Good Order Provider: ASA INTERIANO PROCEDURES: Echocardiographic Report: Transthoracic echocardiogram with complete 2D, M-Mode, and color Doppler examination. INDICATIONS: Z98.890 Other specified postprocedural states, I25.10 Atherosclerotic heart disease of kenaitze coronary artery without angina pectoris, and I48.20 [...] FINDINGS: Interpretation Site: Exam was interpreted at [facility]. Left Ventricle: Normal left ventricular systolic function. [...] Procedure Note Eldon Lennon MD - 08/22/2024 [facility] Cardiology [address] [facility] [address], [place] [address] [address] [facility] [address], [place] [address] P:[phone] P:[phone] Echocardiographic Report Patient Name: DANA BUNN M : 1945 Study Date: 08/22/2024 11:10:57 AM Gender: M Tech: Location: [facility] Provider: ASA INTERIANO Height(Cm): 180 BSA: 2.26 Weight(Kg): 102.5 Heart Rate: 67 BP: 122 / 64 Quality: Good Order Provider: ASA INTERIANO PROCEDURES: Echocardiographic Report: Transthoracic echocardiogram with complete 2D, M-Mode, and color Dopplerexamination. INDICATIONS: Z98.890 Other specified postprocedural states, I25.10 Atheroscleroticheart disease of kenaitze coronary artery without angina pectoris, and I48.20 [...] FINDINGS: Interpretation Site: Exam was interpreted at [facility]. Left Ventricle: Normal left ventricular systolic function. [...] Lennon MD 08/22/2024 5:04:42 PM CDT us Asa Interiano MD CV ECHO PROCEDURES F inal Result from Last 3 Months Insurance MEDICARE [email or web address] O MEDICARE ANTH PREFERRED [place] ACCESS OOS MEDICARE Advance Directives For more information, please contact: [phone] * Full Code (Latest Code Status on File) Date Activated Date Inactivated Comments 04/27/2022 10:36 AM 04/27/2022 4:58 PM * Full Code Date Activated Date Inactivated Comments 02/22/2017 4:23 PM 03/04/2017 3:39 PM Care Teams Publications Sales Representative Relationship Specialty Start Date End Date Donovan Read MD PCP - General Family Practice 07/10/18
--- OUTSIDE RECORDS SUMMARY | 2024-10-01 13:28 | XMS_ITS | Encounter Summary ---
Author Organization [facility] Address [address] [place] [address] Care Team Providers Care Record Pressman Name Role Phone Donovan Read MD Primary Care Provider Encounter Details Date Type Department Care Team (Latest Contact Info) Description 08/26/2024 Results Follow-Up [facility] Cardiology [address] [place] [phone] [place] [address] [place] [address] Transthoracic Echo (TTE) Complete W Doppler/CF Social History Tobacco Use Types Packs/Day Years Used Date Smoking Tobacco: Former Cigarettes Q uit: 01/02/1971 Smokeless Tobacco: Former Quit: 1992 Alcohol Use Standard Drinks/Week Comments Yes 1 [...] on file 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
--- OUTSIDE RECORDS SUMMARY | 2024-10-01 13:28 | XMS_ITS | Clinical Summary ---
Author Organization [facility] Address [address] [place] [address] Care Team Providers Care Manager Billing Name Role Phone Unavailable Primary Care Provider [...] - 1-dose 75+ series) 05/25/2018 Pneumococcal Vaccine: 50+ Years (3 of 3 - PCV20 or PCV21) 02/10/2022 02/10/2017, 04/16/2007 COVID-19 Vaccine ( - 2023-2 5 season) 2023 12/21/2020, 06/06/2020, 05/15/2020 Meningococcal B Vaccine Aged Out No l onger eligible based on patient's age to complete this topic Meningococcal Vaccine Aged Out No quintin mauricio eligible based on patient's age to complete this topic RSV Immunizations Under 20 Months Aged Out No longer eligible b ased on patient's age to complete this topic
--- OUTSIDE RECORDS SUMMARY | 2024-10-01 13:28 | XMS_ITS | Encounter Summary ---
Author Organization [facility] Address [address] [facility] [address] [place] [address] Care Team Providers Care Banana Grader Name Role Phone Flavio Sanchez MD Primary Care Provider +1- [phone] Flavio Sanchez MD Primary Care Provider +1- [phone] Mattie Dash MD Primary Care Provider +1- [phone] Donovan Read MD Primary Care Provider Encounter Details Date Type Department Care Team (Late st Contact Info) Description 06/07/2016 Orders Only [facility] ProviderJordan MD [address] [place] [address] Social History Tobacco Use Types Packs/Day Years Used Date Smoking Tobacco: Never Assessed Sex and Gender Information Value Date Recorded Sex Assigned at Not on file 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 Gender Identity Not on file Sexual Orientation [...] on filedocumented in this encounter Care Teams Banana Grader Relationship Specialty Start Date End Date Flavio Sanchez MD [address] [place] [address] PCP - General 06/17/16 03/04/18 Flavio Sanchez MD [address] [place] [address] PCP - General 05/13/13 06/16/16 Mattie Dash MD [address] [place] [address] PCP - General Family Practice 03/05/18 07/09/18 Donovan Read MD [address] [place] [address] PCP - General Family Practice 07/10/18 documented as of this encounter
--- OUTSIDE RECORDS SUMMARY | 2024-10-01 13:29 | XMS_ITS | Data Portability ---
Author Organization [facility], Main Office Address [address] [place] [address] Care Team Providers Care Senior Quality Methods Specialist Name Role Phone ANGIE LING Primary Care Provider [phone] ANGIE LING Referring Provider Assessment Encounter Date [...] DO Not Attach Compendium, Do Not Delete/merge, [address] 3 09:11:09 Surgeries None recorded. Imaging None recorded. Medication Orders Kenalog 10 mg/mL suspension for injection 2022 023 ginny [address] [facility] [facility], [place], [address], 3 09:13:19 ropivacaine (PF) 5 mg/mL (0.5 %) injection solution 2022 023 ginny [facility], [address], [place], [address], 3 09:13:19 Patient TargetsNo targets recorded. Patient InstructionsNo instructions recorded. Reason for Referral None Reported. Results Created Date Observation Date Name Description Value Unit Range Abnormal Flag Note LastModifiedBy Organization Detail LastModifiedTime 09/22/19 22 XR, knee, 3 view No observ ation record ed. [id number] [facility] [address] [facility] [address], [place], [address], 05/18/2022 03:29:30 Result Notes None recorded. Problems Name Problem SNOMED Code Status Onset Date Resolution Date Notes Provider Name and Address Organization Details Recorded Time Arthritis of right knee 7803518613657 102 Active 2020 Not Available [facility] 3 03:07:54 Osteoarthr itis of knee 710231697 Active Not Available [facility] 3 03:07:54 Osteoarthr itis of right knee joint 5815918390293 00 Active 2020 Not Available [facility] 3 03:07:55 Problem Notes None recorded. Procedures Surgical History Date Name Laterality Status Provider Name and Address Organization Details Recorded Time 3 Ortho - Cortisone Injection completed Steve Holman MD [address] [place] [address] [address], [place], [address], [facility] 06/06/2022 09:17:34 Imaging Results None recorded. Procedure Notes None recorded. Medical Equipment None [...] 20 mg by injection route. 2022 active [facility]: 0003- 0494- 20 Not Available [...] Not Available No t Available amoxicillin 875 mg-yolanda m clavulanate 125 mg tablet TAKE 1 [...] Not Available Not Available Not Avai lable [place] 3 Fish Oil 2020 active Not Available [...] office by the doctor 09/21 completed NDC: [address] -1 Not Available Not Available Not Available [facility] 2020 active Not Available Not Available Not Avai lable Vitals Date Recorded Body height Body mass index (BMI) Body weight Provider Name and Address Organization Details Last Updated DateTime 06/06/2022 182.88 cm 32 kg/m2 566437.8 g Bela Salazar CNA [place] - [facility] 06/06/2022 09:09:39 Date Recorded Body mass index (BMI) Body height Body weight Provider Name and Address Organization Details Last Updated DateTime 09/21/2021 31.2 kg/m2 182.88 cm 441236.25 g Not Available [facility] 05/18/2022 03:03:20 Date Recorded Body mass index (BMI) Body height Body weight Provider Name and Address Organization Details Last Updated DateTime 01/28/2021 31.2 kg/m2 182.88 cm 967268.25 g Not Available [facility] 05/18/2022 03:03:20 Date Recorded Body mass index (BMI) Body height Body weight Provider Name and Address Organization Details Last Updated DateTime 02/04/2021 31.2 kg/m2 182.88 cm 365606.25 g Not Available [facility] 05/18/2022 03:03:20 Date Recorded Body mass index (BMI) Body height Body weight Provider Name and Address Organization Details Last Updated DateTime 02/22/2022 30.9 kg/m2 182.88 cm 748923.06 g Not Available [facility] 05/18/2022 03:03:20 Social History None recorded. Functional Status Question Answer Note LastModified by Organizat ion Details LastModified Time What is your level of alcohol consumption? Occasional [id number] Information not available 05/18/2022 Mental Status None recorded. Family History Relationship Description Onset Age of this Age Resolved Age Notes LastModified by Organization Details LastModified Time Father Family history of malignant neoplasm [id number] Not available 05/18/2022 02:55:19 Father Hypertensive disorder [id number] Not available 05/18/2022 02:55:19 Mother Hypertensive disorder [id number] Not available 05/18/2022 02:55:19 Medical History Condition Response HEART DISEASE/HEART PROBLEMS Y HYPERTENSION Y Past Encounters Encounter ID Performer Location Encounter Start Date Encounter Closed Date Diagnosis/Indication Diagnosis SNOMED-CT Code Diagnosis ICD10 Code Diagnosis Note [id number] Steve Holman MD [facility] [address] [place] [address] 06/11/2020 00:00:00 06/11/2020 11:37:11 [id number] Steve Holman MD [facility] [address] [place] [address] 06/18/2020 00:00:00 06/18/2020 11:38:58 [id number] Steve Holman MD [facility] [address] [place] [address] 06/25/2020 00:00:00 06/25/2020 10:08:38 [id number] Steve Holman MD [facility] [address] [place] [address] 11/26/2020 00:00:00 11/26/2020 11:43:32 [id number] Steve Holman MD [facility] [address] [place] [address] 01/07/2021 00:00:00 01/07/2021 09:29:38 [id number] Steve Holman MD [facility] [address] [place] [address] 01/14/2021 00:00:00 01/14/2021 10:43:02 [id number] Steve Holman MD [facility] [address] [place] [address] 01/21/2021 00:00:00 01/21/2021 10:59:30 [id number] Steve Holman MD [facility] [address] [place] [address] 01/28/2021 00:00:00 01/28/2021 10:32:51 [id number] Steve Holman MD [facility] [address] [place] [address] 02/04/2021 00:00:00 02/04/2021 10:53:55 [id number] Steve Holman MD [facility] [address] [place] [address] 09/21/2021 00:00:00 09/21/2021 14:54:54 [id number] Steve Holman MD [facility] [address] [place] [address] 02/22/2022 00:00:00 02/22/2022 14:57:23 [id number] Steve Holman MD [facility] [address] [place] [address] 06/06/2022 09:03:17 06/06/2022 10:10:09 Arthritis of right knee 5161412477 904658 M13.861 Osteoarthr itis of knee 673518439 M17.11 Osteoarthr itis of right knee joint 3641075923 87400 M17.11 Health Concerns Section Related Observation LastModified by Organization Detai ls LastModified Time None Recorded Concern Status LastModified by Organization Details LastModified Time None Recorded Advance Directives Directive None Recorded Payers Insurance Date Sequence Insurance Name Policy Number Policy Salguero Covered Member ID Salguero Member ID Guarantor Name 06/02/2022 1 [place] Augie Bunn [id number] Augie Bunn 06/02/2022 2 [place] [id number] Augie Bunn [id number] Augie Bunn Notes Date Note Type Note Provider Name and Address Organization Details Recorded Time 06/06/2022 text/html Patient returns arthritis right knee. He got canceled a couple of times and really benefit from knee replacement surgery he is back now because it like a shot as he can have the knee replaced couple months. Steve Holman MD [address] [place] [address], [place] [address], [place], [address], [place] [facility] 06/06/2022 09:19:18
[2024-10-01 13:40] LABS: Hematocrit 43.4 % (42.0-52.0); Hemoglobin 14.4 g/dL (14.0-18.0); Mean Corpuscular HGB Conc 33.2 g/dl (32-36); Mean Corpuscular Hemoglobin 30.3 pg (26-34); Mean Corpuscular Volume 91.4 fl (80-100); Platelet Count Result 150 k/mm3 (150-375); Red Blood Count 4.75 M/mm3 (4.6-6.20); White Blood Count 4.5 K/mm3 (4.5-10.0)
[2024-10-01 17:00] LABS: Iron 74 ug/dL (49-181)
[2024-10-01 17:10] LABS: Percent Iron Saturation 21 % (20-50)
[2024-10-01 17:43] LABS: Ferritin 74.70 ng/mL (11.1-264)
== END 2024-10-01 13:25 | disposition home or self-care (01) ==
PROVIDERS: PCP Family Medicine; Visit Provider Internal Medicine Hematology & Oncology
DX: D50.0 Iron deficiency anemia secondary to blood loss (chronic) (principal)
CPT/HCPCS: 36415; 82728; 83540; 83550; 85027

== ENCOUNTER 2024-10-17 11:01 | Outpatient (CLI) | payer MEDICARE, BC, SELFPAY ==
--- OUTSIDE RECORDS SUMMARY | 2024-10-17 11:07 | XMS_ITS | Encounter Summary ---
Author Organization [facility] Healthcare Address [address] [place] [address] Care Team Providers Care Food And Nutrition Professor Name Role Phone Donovan Read MD Primary Care Provider Encounter Details Date Type Department Care Team (Latest Contact Info) Description 08/26/2024 Results Follow-Up 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
--- OUTSIDE RECORDS SUMMARY | 2024-10-17 11:07 | XMS_ITS | Encounter Summary ---
Author Organization [facility] Address [address] [facility] [address] [place] [address] Care Team Providers Care Frame Gate Mortiser Operator Name Role Phone Flavio Sanchez MD Primary Care Provider +1- [phone] Flavio Sanchez MD Primary Care Provider +1- [phone] Mattie Dash MD Primary Care Provider +1- [phone] Donovan Read MD Primary Care Provider Encounter Details Date Type Department Care Team (Late st Contact Info) Description 06/07/2016 Orders Only [facility] ProviderJordan MD [address] [place] [address] Social History Tobacco Use Types Packs/Day Years Used Date Smoking Tobacco: Never Assessed Sex and Gender Information Value Date Recorded Sex Assigned at Not on file 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 Gender Identity Not on file Sexual Orientation [...] on filedocumented in this encounter Care Teams Frame Gate Mortiser Operator Relationship Specialty Start Date End Date Flavio Sanchez MD [address] [place] [address] PCP - General 06/17/16 03/04/18 Flavio Sanchez MD [address] [place] [address] PCP - General 05/13/13 06/16/16 Mattie Dash MD [address] [place] [address] PCP - General Family Practice 03/05/18 07/09/18 Donovan Read MD [address] [place] [address] PCP - General Family Practice 07/10/18 documented as of this encounter
--- OUTSIDE RECORDS SUMMARY | 2024-10-17 11:07 | XMS_ITS | Clinical Summary ---
Author Organization [facility] Address [address] [place] [address] Care Team Providers Care Communications Equipment Operator Name Role Phone Unavailable Primary Care Provider [...]
--- OUTSIDE RECORDS SUMMARY | 2024-10-17 11:07 | XMS_ITS | Clinical Summary ---
Author Organization [facility] [place] [address] Address [address] [place] [address] Care Team Providers Care Marketing Development Specialist Name Role Phone Donovan Read MD Primary [...] (50 mg total) by mouth daily Active hohtj-7-qua-epa -dpa-fish oil 1,050-1,200 mg capsule 1 capsule [...] (04/11/2022): Added automatically from request for surgery [id number] Chronic atrial fibrillation 03/02/2020 H/O mitral valve repair 03/05/2018 Encounter for removal of sutures 07/03/2017 Assessment & Plan (07/03/2017 8:24 AM CDT): I removed 1 suture from 1 of the incisions Coronary artery disease invo lving ekwok coronary 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 Assessment & Plan (03/28/2017 1:31 PM MINERAL ORE PROCESSING LABOURER): Status post CABG. Continue aspirin, Lipitor . He is not candidate for beta- lul because of previous seizures/syncope. Essential hypertension, benign 11/07/2016 Assessment & Plan (07/03/2017 8:19 AM CDT): Blood pressure is well controlled. Continue losartan 50 mg daily. Assessment & Plan (03/28/2017 1:30 PM MINERAL ORE PROCESSING LABOURER): Blood pressure is elevated. Add losartan 25 mg p.o. daily. Assessment & Plan (01/02/2017 9:20 AM CDT): Blood pressure is controlled. Continue current meds Assessment & Plan (11/07/2016 8:40 AM CDT): Controlled. Continue current medications Syncope Assessment & Plan (03/28/2017 1:32 PM MINERAL ORE PROCESSING LABOURER): Patient was started on metoprolol preoperatively and [...] 03/05/2018 Assessment & Plan (03/28/2017 1:30 PM MINERAL ORE PROCESSING LABOURER): Status post mitral valve repair. Continue aspirin [...] Department Care Team Description 08/26/2024 Results Follow-Up [facility] Cardiology [address] [place] [address] [place] [address] Asa Interiano MD Transthoracic Echo (TTE) Complete W Doppler/CF 08/22/2024 11:15 AM CDT Ancillary Procedure [facility] Cardiology [address] [place] [address] H/O mitral valve repair; Coronary artery disease involving ekwok coronary artery of ekwok heart without angina pectoris; Chronic atrial fibrillation (HCC) 08/05/2024 9:15 AM CDT Office Visit [facility] Cardiology [address] [place] [address] Asa Interiano MD H/O mitral valve repair (Primary Dx); Coronary artery disease involving ekwok coronary artery of ekwok heart without angina pectoris; Chronic atrial fibrillation [...] on file 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 Gender Identity Not on file Sexual Orientation Not on file Obstetrics History Last Filed Vital Signs Vital Sign Reading Time Taken Comments Blood Pressure 122/64 08/05/2024 9:04 AM CDT Pulse 87 08/05/2024 9:04 AM CDT Temperature 36.8 C (98.2 F) 04/27/2022 8:16 AM MINERAL ORE PROCESSING LABOURER Respiratory Rate 16 05/17/2022 11:42 AM MINERAL ORE PROCESSING LABOURER Oxygen Saturation 99% 08/05/2024 9:04 AM CDT [...] Risk Assessment 04/27/2023 04/27/2022 Influenza Vaccine (#1) 2024 Medical Devices Implanted Type Area Mathematics Lecturer Device Identifier Shelf Expiration Date Model / Serial / Lot Ring Annuloplasty Edda ds Physio Ii Cocr Silicone Polyester Od32 Mm Mitral Salguero Sew Sterile Heart Valve Repair - [id number] - [id number] Implanted:Qty: 1 on 02/24/2017 by Buddy Arzate MD at [facility] Other - see comments N/A: Heart [employer] 02/17/2021 [id number] / [id number] / Description:Mitral annulopla sty ring [employer]koo Angio-Seal Vip 6fr Closere Device [id number] - [id number] Implanted:Qty: 1 on 04/27/2022 by Asa Interiano MD at [facility] [employer] 01/17/2023 [id number] / / [id number] Procedures Procedure Name Priority Date/Time Associated Diagnosis Comments TRANSTHORACIC ECHO (TTE) COMPLETE W DOPPLER/CF WO CONTRAST Routine 08/22/2024 11:49 AM CDT H/O mitral valve repair Coronary artery disease involving ekwok coronary artery of ekwok heart without angina pectoris Chronic atrial fibrillation (HCC) from Last 3 Months Results * TRANSTHORACIC ECHO (TTE) COMPLETE W DOPPLER/CF WO CONTRAST (08/22/2024 11:49 AM CDT) Estimated EF 65-70 % CONS SCIMAGE EF Mod BP 67 % CONS SCIMAGE Anatomical Region Laterality Modality Ultrasound 08/22/2024 11:1 0 AM CDT Narrative 08/22/2024 5:04 PM CDT [facility] Cardiology [address] [facility] [address] [id number] [address] [facility] [address] [place] [address], [place] [address] P:[phone] P:[phone] Echocardiographic Report Patient Name: DANA BUNN M : 1945 Study Date: 08/22/2024 11:10:57 AM Gender: M Tech: Location: [place] Ref Provider: ASA INTERIANO Height(Cm): 180 BSA: 2.26 Weight(Kg): 102.5 Heart Rate: 67 BP: 122 / 64 Quality: Good Order Provider: ASA INTERIANO PROCEDURES: Echocardiographic Report: Transthoracic echocardiogram with complete 2D, M-Mode, and color Doppler examination. INDICATIONS: Z98.890 Other specified postprocedural states, I25.10 Atherosclerotic heart disease of ekwok coronary artery without angina pectoris, and I48.20 [...] FINDINGS: Interpretation Site: Exam was interpreted at [facility]. Left Ventricle: Normal left ventricular systolic function. [...] Procedure Note Eldon Lennon MD - 08/22/2024 [facility] Cardiology [address] [facility] [address], [place] [address] [address] [facility] [address], [place] [address] P:[phone] P:[phone] Echocardiographic Report Patient Name: DANA BUNN M : 1945 Study Date: 08/22/2024 11:10:57 AM Gender: M Tech: Location: [facility] Provider: ASA INTERIANO Height(Cm): 180 BSA: 2.26 Weight(Kg): 102.5 Heart Rate: 67 BP: 122 / 64 Quality: Good Order Provider: ASA INTERIANO PROCEDURES: Echocardiographic Report: Transthoracic echocardiogram with complete 2D, M-Mode, and color Dopplerexamination. INDICATIONS: Z98.890 Other specified postprocedural states, I25.10 Atheroscleroticheart disease of ekwok coronary artery without angina pectoris, and I48.20 [...] FINDINGS: Interpretation Site: Exam was interpreted at [facility]. Left Ventricle: Normal left ventricular systolic function. [...] MEDICARE BLUE ACCESS OOS MEDICARE ANTH PREFERRED [place] ACCESS OOS MEDICARE Advance Directives For more information, please contact: [phone] * Full Code (Latest Code Status on File) Date Activated Date Inactivated Comments 04/27/2022 10:36 AM 04/27/2022 4:58 PM * Full Code Date Activated Date Inactivated Comments 02/22/2017 4:23 PM 03/04/2017 3:39 PM Care Teams Marketing Development Specialist Relationship Specialty Start Date End Date Donovan Read MD PCP - General Family Practice 07/10/18
--- OUTSIDE RECORDS SUMMARY | 2024-10-17 11:07 | XMS_ITS | Clinical Summary ---
Author Organization [facility] Bradley Rubio Address [address] [place] [address] Care Team Providers Care Real Estate Utilization Officer Name Role Phone Donovan Read MD Primary [...] 2 Active fluticasone propionate (FLONASE) 50 mcg/spray [place], Suspension nasal inhaler Administer 2 Sprays in [...] Encounters Date Type Department Care Team Description 10/03/2024 2:15 PM CDT Office Visit [facility] Oncology and Hematology - [place] [address] [place] [address] Haris Lozano MD Iron deficiency anemia due to chronic blood loss (Primary Dx) 10/02/2024 External Device Data STL ABSTRACTION Provider, Abstract 10/02/2024 External Device Data STL ABSTRACTION Provider, Abstract 10/02/2024 Orders Only [facility] Oncology and Hematology - [place] [address] [place] [address] Haris Lozano MD 10/02/2024 External Device Data STL ABSTRACTION Provider, Abstract 10/01/2024 External Device Data STL ABSTRACTION Provider, Abstract 10/01/2024 Orders Only [facility] Oncology and Hematology - [place] [address] [place] [address] Haris Lozano MD 09/03/2024 External Device Data STL ABSTRACTION Provider, [...] Sign Reading Time Taken Comments Blood Pressure 121/68 10/03/2024 2:09 PM CDT Pulse 71 10/03/2024 2:09 PM CDT Temperature 36.1 C (97 F) 10/03/2024 2:09 PM CDT Respiratory Rate 15 10/03/2024 2:09 PM CDT Oxygen Saturation 96% 10/03/2024 2:09 PM CDT Inhaled Oxygen Concentration - - Weight 100.5 kg (221 lb 9.6 oz) 10/03/2024 2:09 PM CDT Height 182.9 cm (6') 06/13/2023 1:34 PM CDT Body Mass Index 30.05 06/13/2023 1:34 PM CDT Plan of Treatment Upcoming Encounters Date Type Department Care Team (Late st Contact Info) Description 09/29/2025 1:00 PM CDT Office Visit [facility] Oncology and Hematology - [place] [address] [facility] [address] [place] [address] Haris Lozano MD [address] [facility] [address] [place] [address] Health Maintenance Due Date Last Done Comments DTAP/TDAP/TD VACCINES (1 - Tdap) 05/25/1962 PNEUMOCOCCAL VACCINE 50+ YEARS (1 of 2 - PCV) 05/25/18 63 ZOSTER VACCINE (1 of 2) 05/25/1993 RSV VACCINE (60+ or ) (1 - 1-dose 75+ series) 05/25/2018 INFLUENZA VACCINE (#1) 2024 Procedures Procedure Name Priority Date/Time Associated Diagnosis Comments CBC WITH DIFFERENTIAL Routine 10/01/2024 4:17 PM CDT IRON LEVEL Routine 10/01/2024 9:16 AM CDT from Last 3 Months Results * CBC WITH DIFFERENTIAL (10/01/2024 4:17 PM CDT) Blood Haris Lozano MD HEMATOLOGY ORDERABLES Final Res ult * IRON LEVEL (10/01/2024 9:16 AM CDT) Blood Haris Lozano MD CHEMISTRY ORDERABLES Final Resu lt from Last 3 Months Insurance MEDICARE PART A AND B [employer] PPO Care Teams Real Estate Utilization Officer Relationship Specialty Start Date End Date Donovan Read MD [address] [facility] [place] [facility] [place] [address] PCP - General Family Practice 06/13/23
--- OUTSIDE RECORDS SUMMARY | 2024-10-17 11:07 | XMS_ITS | Referral Summary ---
Author Organization [place] [address] [address] [place] [address] Care Team Providers Care Rat Culturist Name Role Phone Donovan Read MD Primary Care Provider Encounters Date Type Department Care Team Description 08/26/2024 Results Follow-Up [facility] Cardiology [address] [place] [address] [place] [address] Asa Interiano MD Transthoracic Echo (TTE) Complete W Doppler/CF 08/22/2024 11:15 AM CDT Ancillary Procedure [facility] Cardiology [address] [place] [address] [place] [address] H/O mitral valve repair; Coronary artery disease involving ely shoshone coronary artery 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; Chronic atrial fibrillation (HCC) 08/05/2024 9:15 AM CDT Office Visit [facility] Cardiology [address] [place] [address] [place] [address] Asa Interiano MD H/O mitral valve repair (Primary Dx); Coronary artery disease involving ely shoshone coronary artery 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; Chronic atrial fibrillation [...] (50 mg total) by mouth daily Active naodo-2-qnr-epa -dpa-fish oil 1,050-1,200 mg capsule 1 capsule [...] (04/11/2022): Added automatically from request for surgery [id number] Chronic atrial fibrillation 03/02/2020 H/O mitral valve repair 03/05/2018 Encounter for removal of sutures 07/03/2017 Assessment & Plan (07/03/2017 8:24 AM CDT): I removed 1 suture from 1 of the incisions Coronary artery disease invo lving ely shoshone coronary artery 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 02/23/2017 Assessment & Plan (07/03/2017 8:20 AM CDT): Continue aspirin and Lipitor. Assessment & Plan (03/28/2017 1:31 PM FLUX CORE WELDER): Status post CABG. Continue aspirin, Lipitor . He is not candidate for beta- lul because of previous seizures/syncope. Essential hypertension, benign 11/07/2016 Assessment & Plan (07/03/2017 8:19 AM CDT): Blood pressure is well controlled. Continue losartan 50 mg daily. Assessment & Plan (03/28/2017 1:30 PM FLUX CORE WELDER): Blood pressure is elevated. Add losartan 25 mg p.o. daily. Assessment & Plan (01/02/2017 9:20 AM CDT): Blood pressure is controlled. Continue current meds Assessment & Plan (11/07/2016 8:40 AM CDT): Controlled. Continue current medications Syncope Assessment & Plan (03/28/2017 1:32 PM FLUX CORE WELDER): Patient was started on metoprolol preoperatively and [...] 03/05/2018 Assessment & Plan (03/28/2017 1:30 PM FLUX CORE WELDER): Status post mitral valve repair. Continue aspirin [...] on file Legal Sex Male 5:43 PM FLUX CORE WELDER Gender Identity Not on file Sexual Orientation Not on file Last Filed Vital Signs Vital Sign Reading Time Taken Comments Blood Pressure 122/64 08/05/2024 9:04 AM CDT Pulse 87 08/05/2024 9:04 AM CDT Temperature 36.8 C (98.2 F) 04/27/2022 8:16 AM FLUX CORE WELDER Respiratory Rate 16 05/17/2022 11:42 AM FLUX CORE WELDER Oxygen Saturation 99% 08/05/2024 9:04 AM CDT Inhaled Oxygen Concentration - - Weight 102.5 kg (226 lb) 08/05/2024 9:04 AM CDT Height 180.3 cm (5' 11) 08/05/2024 9:04 AM CDT Body Mass Index 31.52 08/05/2024 9:04 AM CDT Plan of Treatment Not on file Medical Devices Implanted Type Area Filling Winder Device Identifier Shelf Expiration Date Model / Serial / Lot Ring Annuloplasty Edda ds Physio Ii Cocr Silicone Polyester Od32 Mm Mitral Salguero Sew Sterile Heart Valve Repair - [id number] - [id number] Implanted:Qty: 1 on 02/24/2017 by Buddy Arzate MD at [facility] Other - see comments N/A: Heart [employer] 02/17/2021 [id number] / [id number] / Description:Mitral annulopla sty ring [employer] Angio-Seal Vip 6fr Closere Device [id number] - [id number] Implanted:Qty: 1 on 04/27/2022 by Asa Interiano MD at [facility] [employer] 01/17/2023 [id number] / / [id number] Procedures Procedure Name Priority Date/Time Associated Diagnosis Comments TRANSTHORACIC ECHO (TTE) COMPLETE W DOPPLER/CF WO CONTRAST Routine 08/22/2024 11:49 AM CDT H/O mitral valve repair Coronary artery disease involving ely shoshone coronary artery 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 Chronic atrial fibrillation (HCC) from Last 3 Months Results * TRANSTHORACIC ECHO (TTE) COMPLETE W DOPPLER/CF WO CONTRAST (08/22/2024 11:49 AM CDT) Estimated EF 65-70 % CONS SCIMAGE EF Mod BP 67 % CONS SCIMAGE Anatomical Region Laterality Modality Ultrasound 08/22/2024 11:1 0 AM CDT Narrative 08/22/2024 5:04 PM CDT [facility] Cardiology [address], [place], [place] [id number] [address] [facility] [address], [place] [address] P:[phone] P:[phone] Echocardiographic Report Patient Name: DANA BUNN M : 1945 Study Date: 08/22/2024 11:10:57 AM Gender: M Tech: Location: [facility] Provider: ASA INTERIANO Height(Cm): 180 BSA: 2.26 Weight(Kg): 102.5 Heart Rate: 67 BP: 122 / 64 Quality: Good Order Provider: ASA INTERIANO PROCEDURES: Echocardiographic Report: Transthoracic echocardiogram with complete 2D, M-Mode, and color Doppler examination. INDICATIONS: Z98.890 Other specified postprocedural states, I25.10 Atherosclerotic heart disease of ely shoshone coronary artery without angina pectoris, and I48.20 [...] FINDINGS: Interpretation Site: Exam was interpreted at [facility]. Left Ventricle: Normal left ventricular systolic [...] Procedure Note Eldon Lennon MD - 08/22/2024 [facility] Cardiology [address] [facility] [address], [place] [address] [address] [facility] [address] [place], [place] [address] P:[phone] P:[phone] Echocardiographic Report Patient Name: DANA BUNN M : 1945 Study Date: 08/22/2024 11:10:57 AM Gender: M Tech: Location: [facility] Provider: ASA INTERIANO Height(Cm): 180 BSA: 2.26 Weight(Kg): 102.5 Heart Rate: 67 BP: 122 / 64 Quality: Good Order Provider: ASA INTERIANO PROCEDURES: Echocardiographic Report: Transthoracic echocardiogram with complete 2D, M-Mode, and color Dopplerexamination. INDICATIONS: Z98.890 Other specified postprocedural states, I25.10 Atheroscleroticheart disease of ely shoshone coronary artery without angina pectoris, and I48.20 [...] FINDINGS: Interpretation Site: Exam was interpreted at [facility]. Left Ventricle: Normal left ventricular systolic [...] Result from Last 3 Months Insurance MEDICARE [employer] O MEDICARE ANTH PREFERRED [place] ACCESS OOS MEDICARE Advance Directives For more information, please contact: [phone] * Full Code (Latest Code Status on File) Date Activated Date Inactivated Comments 04/27/2022 10:36 AM 04/27/2022 4:58 PM * Full Code Date Activated Date Inactivated Comments 02/22/2017 4:23 PM 03/04/2017 3:39 PM Care Teams Rat Culturist Relationship Specialty Start Date End Date Donovan Read MD PCP - General Family Practice 07/10/18
--- OUTSIDE RECORDS SUMMARY | 2024-10-17 11:07 | XMS_ITS | Encounter Summary ---
Author Organization [facility] Address [address] [facility] [address] [place] [address] Care Team Providers Care Biscuit Machine Operator Name Role Phone Flavio Sanchez MD Primary Care Provider +1- [phone] Mattie Dash MD Primary Care Provider +1- [phone] Donovan Read MD Primary Care Provider Encounter Details Date Type Department Care Team (Late st Contact Info) Description 07/18/2016 Orders Only [facility] ProviderJordan MD [address] [place] [address] Social History Tobacco Use Types Packs/Day Years Used Date Smoking Tobacco: Former Cigarettes Q uit: 03/20/1981 Alcohol Use Standard Drinks/Week Comments Yes 0 (1 standard drink = 0.6 oz pur e alcohol) Sex and Gender Information Value Date Recorded Sex Assigned at Not on file Legal Sex 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
[2024-10-17 13:07] LABS: Alanine Aminotransferase 15 U/L (6-50); Albumin Level 4.5 g/dL (3.5-5.1); Alkaline Phosphatase 89 U/L (38-126); Anion Gap 9 mmol/L (4-12); Aspartate Amino Transferase 40 U/L (17-59); Bilirubin,Total 1.3 mg/dL (0.2-1.3); Blood Urea Nitrogen 24 mg/dL (9-20); Calcium 9.7 mg/dL (8.4-10.2); Carbon Dioxide 26 mmol/L (22-30); Chloride 104 mmol/L (98-107); Estimated Glomerular Filt Rate > 60; Glucose 101 mg/dL (65-110); Magnesium 2.2 mg/dL (1.6-2.3); Potassium 4.5 mmol/L (3.4-5.0); Sodium 139 mmol/L (137-145); Total Protein 7.7 g/dL (6.3-8.2)
== END 2024-10-17 11:02 | disposition home or self-care (01) ==
LOC: ANHGOSHLAB 11:02
PROVIDERS: PCP Family Medicine; Visit Provider Nurse Practitioner Family
DX: I10 Essential (primary) hypertension (principal)
CPT/HCPCS: 36415; 80053; 83735

== ENCOUNTER 2025-01-27 09:30 | Outpatient (CLI) | payer MEDICARE, BC, SELFPAY ==
--- OUTSIDE RECORDS SUMMARY | 2025-01-27 10:08 | XMS_ITS | Encounter Summary ---
Author Organization [facility] Address [address] [facility] [address] [place] [address] Care Team Providers Care Transport Engineer Name Role Phone Flavio Sanchez MD Primary Care Provider +1- [phone] Mattie Dash MD Primary Care Provider +1- [phone] Donovan Read MD Primary Care Provider Encounter Details Date Type Department Care Team (Late st Contact Info) Description 07/18/2016 Orders Only [facility] ProviderJordan MD [address] [place] [address] Social History Tobacco Use Types Packs/Day Years Used Date Smoking Tobacco: Former Cigarettes Q uit: 03/20/1981 Alcohol Use Standard Drinks/Week Comments Yes 0 (1 standard drink = 0.6 oz pur e alcohol) Sex and Gender Information Value Date Recorded Sex Assigned at Not on file Legal Sex Male 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
--- OUTSIDE RECORDS SUMMARY | 2025-01-27 10:08 | XMS_ITS | Clinical Summary ---
Author Organization [facility] Bradley Rubio Address [address] [place] [address] Care Team Providers Care Car Whacker Name Role Phone Donovan Read MD Primary [...] 2 Active fluticasone propionate (FLONASE) 50 mcg/spray [place], Suspension nasal inhaler Administer 2 Sprays in [...] Encounters Date Type Department Care Team Description 01/08/2025 External Device Data STL ABSTRACTION Provider, Abstract 01/07/2025 External Device Data STL ABSTRACTION Provider, Abstract 12/03/2024 External Device Data STL ABSTRACTION Provider, Abstract 12/03/2024 External Device Data STL ABSTRACTION Provider, Abstract 11/05/2024 External Device Data STL ABSTRACTION Provider, Abstract 11/05/2024 External Device Data STL ABSTRACTION Provider, Abstract [...] Description 09/29/2025 1:00 PM CDT Office Visit [facility] Oncology and Hematology - [place] [address] [facility] [address] [place] [address] Haris Lozano MD [address] [facility] [address] [place] [address] Health Maintenance Due Date Last Done Comments DTAP/TDAP/TD VACCINES (1 - Tdap) 05/25/1962 PNEUMOCOCCAL VACCINE 50+ YEARS (1 of 2 - PCV) 05/25/18 63 ZOSTER VACCINE (1 of 2) 05/25/1993 RSV VACCINE (60+ or ) (1 - 1-dose 75+ series) 05/25/2018 INFLUENZA VACCINE (#1) 2024 Insurance MEDICARE PART A AND B [facility] BLUE ACCESS/TRUE BLUE PPO Care Teams Car Whacker Relationship Specialty Start Date End Date Donovan Read MD [address] [place] [address] [place] [address] PCP - General Family Practice 06/13/23
--- OUTSIDE RECORDS SUMMARY | 2025-01-27 10:08 | XMS_ITS | Clinical Summary ---
Author Organization [facility] [address] Address [address] [place] [address] Care Team Providers Care Box Lining Machine Feeder Name Role Phone Donovan Read MD Primary [...] (50 mg total) by mouth daily Active ryumt-3-efo-epa -dpa-fish oil 1,050-1,200 mg capsule 1 capsule [...] tablet,chewable Take by oral route. 1 Active Xarelto 20 mg tablet TAKE 1 TABLET BY MOUTH DAILY 90 tablet 3 5 Active Active Problems Problem Noted Date Diagnosed Date NSVT (nonsustained ventricular tachycardia) 03/21 Overview (04/11/2022): Added automatically from request for surgery [id number] Chronic atrial fibrillation 03/02/2020 H/O mitral valve repair 03/05/2018 Encounter for removal of sutures 07/03/2017 Assessment & Plan (07/03/2017 8:24 AM CDT): I removed 1 suture from 1 of the incisions Coronary artery disease invo lving te[place] coronary artery of [place] heart without angina pectoris 02/23/2017 Assessment & Plan (07/03/2017 8:20 AM CDT): Continue aspirin and Lipitor. Assessment & Plan (03/28/2017 1:31 PM PROJECT STRUCTURAL ENGINEER): Status post CABG. Continue aspirin, Lipitor . He is not candidate for beta- lul because of previous seizures/syncope. Essential hypertension, benign 11/07/2016 Assessment & Plan (07/03/2017 8:19 AM CDT): Blood pressure is well controlled. Continue losartan 50 mg daily. Assessment & Plan (03/28/2017 1:30 PM PROJECT STRUCTURAL ENGINEER): Blood pressure is elevated. Add losartan 25 mg p.o. daily. Assessment & Plan (01/02/2017 9:20 AM CDT): Blood pressure is controlled. Continue current meds Assessment & Plan (11/07/2016 8:40 AM CDT): Controlled. Continue current medications Syncope Assessment & Plan (03/28/2017 1:32 PM PROJECT STRUCTURAL ENGINEER): Patient was started on metoprolol preoperatively and [...] 03/05/2018 Assessment & Plan (03/28/2017 1:30 PM PROJECT STRUCTURAL ENGINEER): Status post mitral valve repair. Continue aspirin [...] scattered contractions. Reassess syncopal months from now Surgical History Surgery Date Site/Laterality Comments KNEE [...] on file Legal Sex Male 5:43 PM PROJECT STRUCTURAL ENGINEER Gender Identity Not on file Sexual Orientation Not on file Last Filed Vital Signs Vital Sign Reading Time Taken Comments Blood Pressure 122/64 08/05/2024 9:04 AM CDT Pulse 87 08/05/2024 9:04 AM CDT Temperature 36.8 C (98.2 F) 04/27/2022 8:16 AM PROJECT STRUCTURAL ENGINEER Respiratory Rate 16 05/17/2022 11:42 AM PROJECT STRUCTURAL ENGINEER Oxygen Saturation 99% 08/05/2024 9:04 AM CDT [...] (#1) 2024 Medical Devices Implanted Type Area Underwriting Sales Representative Device Identifier Shelf Expiration Date Model / Serial / Lot Ring Annuloplasty Silvano-Tono ds Physio Ii Cocr Silicone Polyester Od32 Mm Mitral Salguero Sew Sterile Heart Valve Repair - [id number] - [id number] Implanted:Qty: 1 on 02/24/2017 by Buddy Arzate MD at [facility] Other - see comments N/A: Heart [employer] 02/17/2021 [id number] / [id number] / Description:Mitral annulopla sty ring [facility]ly [facility] Angio-Seal Vip 6fr Closere Device [id number] - [id number] Implanted:Qty: 1 on 04/27/2022 by Kavin Interiano MD at [facility] [employer] 01/17/2023 [id number] / / [id number] Insurance MEDICARE BLUE ACCESS OOS MEDICARE [facility] PREFERRED BLUE ACCESS OOS Member Subscriber Plan / Payer ( fective 2017-Present) Name:Divya Bunnnn Haleigh Relation to Subscriber:Self Name:Dana Bunn Payer ID:[id number] (NAIC) Type: ALLIANCE Address: [address] [place] [id number] MEDICARE Advance Directives For more information, please contact: [phone] * Full Code (Latest Code Status on File) Date Activated Date Inactivated Comments 04/27/2022 10:36 AM 04/27/2022 4:58 PM * Full Code Date Activated Date Inactivated Comments 02/22/2017 4:23 PM 03/04/2017 3:39 PM Care Teams Box Lining Machine Feeder Relationship Specialty Start Date End Date Donovan Read MD PCP - General Family Practice 07/10/18
--- OUTSIDE RECORDS SUMMARY | 2025-01-27 10:08 | XMS_ITS | Clinical Summary ---
Author Organization [facility] Address [address] [place] [address] Care Team Providers Care Regional Owner Operator Truck Driver Name Role Phone Unavailable Primary Care Provider [...] or PCV21) 02/10/2022 02/10/2017, 04/16/2007 COVID-19 Vaccine (4 - 2024-2 6 season) 2024 12/21/2020, 06/06/2020, 05/15/2020 Influenza Adult (#1) 2024 12/21/2020, 02/04/2020 Hepatitis A Vaccines Aged Out No long er eligible based on patient's age to complete this topic Meningococcal B Vaccine Aged Out No l onger eligible based on patient's age to complete this topic Meningococcal Vaccine Aged Out No quintin mauricio eligible based on patient's age to complete this topic RSV Immunizations Under 20 Months Aged Out No longer eligible b ased on patient's age to complete this topic
--- OUTSIDE RECORDS SUMMARY | 2025-01-27 10:08 | XMS_ITS | Encounter Summary ---
Author Organization [facility] Address [address] [facility] [address] [place] [address] Care Team Providers Care Fish And Game Club Manager Name Role Phone Flavio Sanchez MD Primary Care Provider +1- [phone] Flavio Sanchez MD Primary Care Provider +1- [phone] Mattie Dash MD Primary Care Provider +1- [phone] Donovan Read MD Primary Care Provider Encounter Details Date Type Department Care Team (Late st Contact Info) Description 06/07/2016 Orders Only [facility] ProviderJordan MD [address] [place] [address] Social History Tobacco Use Types Packs/Day Years Used Date Smoking Tobacco: Never Assessed Sex and Gender Information Value Date Recorded Sex Assigned at Not on file 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
[2025-01-27 12:55] LABS: Hematocrit 35.5 % (42.0-52.0); Hemoglobin 11.9 g/dL (14.0-18.0); Immature Granulocyte Percent A 0.5 % (0-0.5); Immature Platelet Fraction Pct 5.0 % (0.9-11.2); Lymphocytes Absolute Auto 0.74 K/mm3 (0.9-3.2); Mean Corpuscular HGB Conc 33.5 g/dl (32-36); Mean Corpuscular Hemoglobin 34.2 pg (26-34); Mean Corpuscular Volume 102.0 fl (80-100); Nucleated Red Blood Cells Absolute Auto 0.000 K/mm3 (0.0-0.012); Nucleated Red Blood Cells Perc 0.0 % (0.0-0.2); Platelet Count Result 71 k/mm3 (150-375); Red Blood Count 3.48 M/mm3 (4.6-6.20)
[2025-01-27 12:55] LABS: Add Urine Microscopic? YES; Appearance Urine Clear (Clear); Glucose Urine UA Negative (Negative); Leukocyte Esterase Ur Negative LEU/UL (Negative); Nitrate Urine Negative (Negative); Specific Grav Ur 1.014 (1.001-1.035)
[2025-01-27 13:12] LABS: Alanine Aminotransferase 19 U/L (6-50); Albumin Level 4.1 g/dL (3.5-5.1); Alkaline Phosphatase 111 U/L (38-126); Anion Gap 6 mmol/L (4-12); Aspartate Amino Transferase 39 U/L (17-59); Bilirubin,Total 0.9 mg/dL (0.2-1.3); Blood Urea Nitrogen 18 mg/dL (9-20); Calcium 9.2 mg/dL (8.4-10.2); Carbon Dioxide 27 mmol/L (22-30); Chloride 99 mmol/L (98-107); Estimated Glomerular Filt Rate > 60; Glucose 115 mg/dL (65-110); Potassium 4.4 mmol/L (3.4-5.0); Sodium 132 mmol/L (137-145); Total Protein 7.5 g/dL (6.3-8.2)
[2025-01-27 13:26] LABS: White Blood Count 1.9 K/mm3 (4.5-10.0)
== END 2025-01-27 09:31 | disposition home or self-care (01) ==
LOC: ANHGOSHLAB 09:31
PROVIDERS: PCP Family Medicine; Visit Provider Nurse Practitioner Family
DX: R68.83 Chills (without fever) (principal); R06.02 Shortness of breath
CPT/HCPCS: 36415; 80053; 81001; 85025; 85055

== ENCOUNTER 2025-01-27 09:49 | Outpatient (CLI) | payer MEDICARE, BC, SELFPAY ==
--- NOTE | ~2025-01-27 | XR_ITS ---
EXAMINATION: XR chest 2V, 01/27/2025 9:57 BAG BAILER HISTORY: Chills (without fever), fatigue x 2 weeks, chills, no fever COMPARISON: No comparisons available. Technique: 2 views obtained. Findings: Mild pulmonary venous congestion. Nodular density left lower lobe 7 x 8 mm incompletely evaluated. No pneumothorax. Mild cardiomegaly. Mediastinal and hilar contours are within normal limits. Post sternotomy. Impression: Mild CHF. Left lung nodule. CT chest recommended Reviewed, dictated and finalized at location P. BAILER Impression: Mild CHF. Left lung nodule. CT chest recommended
== END 2025-01-27 09:50 | disposition home or self-care (01) ==
PROVIDERS: PCP Family Medicine; Visit Provider Nurse Practitioner Family
DX: R68.83 Chills (without fever) (principal); R06.02 Shortness of breath
CPT/HCPCS: 71046

== ENCOUNTER 2025-01-28 10:09 | Outpatient (CLI) | payer MEDICARE, BC, SELFPAY ==
--- NOTE | ~2025-01-28 | CT_ITS ---
EXAM/PROCEDURE: CT chest abdomen pelvis w con HISTORY: pancytopenia COMPARISON: June 25, 2022 TECHNIQUE: IV contrast enhanced chest CT performed FINDINGS: Heart and great vessels appear normal in size and enhancement. No thoracic aortic aneurysm dissection or central/large pulmonary emboli. Borderline pathologic size paratracheal lymph nodes with the largest measuring 1.05 cm in the short axis, image 48 series 3. No bulky lymphadenopathy or mas ses. Patient status post mitral valve replacement and median sternotomy with intact retention wires. Central and large airways are patent. Degenerative changes present throughout the bony thorax. Small hiatal hernia. Liver cysts. Adrenal glands spleen pancreas stomach and liver otherwise unremarkable. No hydroureteronephrosis. Bilateral extrarenal pelvis. Simple right renal cyst. Scattered diverticular disease with no gross acute diverticulitis. No AAA or inflamed appendix. No bulky mesenteric or retroperitoneal lymphadenopathy or masses. Small bilateral omentum containing inguinal hernias. Nonobstructive bowel gas pattern with no free air free fluid or pneumatosis. No acute arterial occlusion seen. Prostate mildly enlarged. Degenerative changes throughout the spine. No acute or aggressive bony process seen. No osteoblastic or osteolytic bony lesions seen. IMPRESSION: 1. Borderline pathologic size paratracheal lymph nodes but no bulky lymphadenopathy or masses seen within the chest abdomen or pelvis. 2. No focal acute process. 3. Several chronic findings as above. Reviewed, dictated and finalized at location A. TECHNICIAN IMPRESSION: 1. Borderline pathologic size paratracheal lymph nodes but no bulky lymphadenop athy or masses seen within the chest abdomen or pelvis. 2. No focal acute process. 3. Several chronic findings as above.
--- OUTSIDE RECORDS SUMMARY | 2025-01-28 10:42 | XMS_ITS | Encounter Summary ---
Author Organization [facility] [employer] [facility] Address [address] [place] [address] Care Team Providers Care Development Expert Name Role Phone Donovan Read MD Primary Care Provider Reason for Referral * CT Scan (Urgent) - Closed Specialty Diagnoses / Procedures Referred By Marko king Referred To Contact Diagnoses Pancytopenia (CMS/HCC) Procedures CT CHEST ABDOMEN PELVIS W CONT Haris Lozano MD [address] [place] [address] Phone: tel: fax: [facility] [id number] Referral ID Status Reason Start Date Expiration Date V isits Requested Visits Authorized [id number] Closed [facility] CTS 01/27/2025 02/27/2026 1 1 UTER HELP DESK REPRESENTATIVE Encounter Details Date Type Department Care Team (Late st Contact Info) Description 01/27/2025 Orders Only [facility] Oncology and Hematology [place] [address] [address] [facility] [address] [place] [address] Haris Lozano MD [address] [place] [address] Pancytopenia (CMS/HCC) (Primary Dx) Social History Tobacco Use Types Packs/Day Years Used Date Smoking Tobacco: Former Cigarettes 1 20 Q uit: 06/13/1983 Smokeless Tobacco: Never Alcohol Use Standard Drinks/Week Comments Yes 0 (1 standard drink = 0.6 oz pur e alcohol) Socially Sex and Gender Information Value Date Recorded Sex Assigned at Not on file Legal Sex Male 3:09 PM CDT Gender Identity Not on file Sexual Orientation Not on file documented as of this encounter Plan of Treatment Upcoming Encounters Date Type Department Care Team (Late st Contact Info) Description 02/05/2025 10:00 AM COMPUTER HELP DESK REPRESENTATIVE Office Visit [facility] Oncology [facility] Hematology [facility] [address] [place] [address] Sheila Guillen MD [address] [place] [address] 09/29/2025 1:00 PM CDT Office Visit [facility] [address] [place] [address] Haris Lozano MD [address] [place] [address] Scheduled Orders Name Type Priority Associated Diagnoses Orde r Schedule CT CHEST ABDOMEN PELVIS W CONT Imaging Stat Pancytopenia (CMS/HCC) 1 Occurrences starting 01/27/2025 until 01/27/2026 CBC WITH DIFFERENTIAL Lab Stat Pancytopenia (CMS/HCC) Expected: 01/27/2025, Expires: 01/27/2026 COMPREHENSIVE METABOLIC PANEL Lab Stat Pancytopenia (CMS/HCC) Expected: 01/27/2025, Expires: 01/27/2026 FLOW CYTOMETRY PANEL Lab Routine Pancytopenia (CMS/HCC) Expected: 01/27/2025, Expires: 01/27/2026 LACTATE DEHYDROGENASE Lab Routine Pancytopenia (CMS/HCC) Expected: 01/27/2025, Expires: 01/27/2026 documented as of this encounter Visit Diagnoses Diagnosis Pancytopenia (CMS/HCC)- Primary Other pancytopenia documented in this encounter Care Teams Development Expert Relationship Specialty Start Date End Date Donovan Read MD [facility] [facility] [place] [address] PCP - General Family Practice 06/13/23 documented as of this encounter
--- OUTSIDE RECORDS SUMMARY | 2025-01-28 10:42 | XMS_ITS | Clinical Summary ---
Author Organization [facility] [address] Address [address] [place] [address] Care Team Providers Care Electric Meter Repairer Helper Name Role Phone Donovan Read MD [...] (50 mg total) by mouth daily Active myjpz-4-rsp-epa -dpa-fish oil 1,050-1,200 mg capsule 1 capsule [...] (04/11/2022): Added automatically from request for surgery [id number] Chronic atrial fibrillation 03/02/2020 H/O mitral valve repair 03/05/2018 Encounter for removal of sutures 07/03/2017 Assessment & Plan (07/03/2017 8:24 AM CDT): I removed 1 suture from 1 of the incisions Coronary artery disease invo lving [place] coronary artery of [place] heart without angina pectoris 02/23/2017 Assessment & Plan (07/03/2017 8:20 AM CDT): Continue aspirin and Lipitor. Assessment & Plan (03/28/2017 1:31 PM GROUND WORKER): Status post CABG. Continue aspirin, Lipitor . He is not candidate for beta- lul because of previous seizures/syncope. Essential hypertension, benign 11/07/2016 Assessment & Plan (07/03/2017 8:19 AM CDT): Blood pressure is well controlled. Continue losartan 50 mg daily. Assessment & Plan (03/28/2017 1:30 PM GROUND WORKER): Blood pressure is elevated. Add losartan 25 mg p.o. daily. Assessment & Plan (01/02/2017 9:20 AM CDT): Blood pressure is controlled. Continue current meds Assessment & Plan (11/07/2016 8:40 AM CDT): Controlled. Continue current medications Syncope Assessment & Plan (03/28/2017 1:32 PM GROUND WORKER): Patient was started on metoprolol preoperatively and [...] 03/05/2018 Assessment & Plan (03/28/2017 1:30 PM GROUND WORKER): Status post mitral valve repair. Continue aspirin [...] on file Legal Sex Male 5:43 PM GROUND WORKER Gender Identity Not on file Sexual Orientation Not on file Last Filed Vital Signs Vital Sign Reading Time Taken Comments Blood Pressure 122/64 08/05/2024 9:04 AM CDT Pulse 87 08/05/2024 9:04 AM CDT Temperature 36.8 C (98.2 F) 04/27/2022 8:16 AM GROUND WORKER Respiratory Rate 16 05/17/2022 11:42 AM GROUND WORKER Oxygen Saturation 99% 08/05/2024 9:04 AM CDT [...] (#1) 2024 Medical Devices Implanted Type Area It Data Architect Device Identifier Shelf Expiration Date Model / Serial / Lot Ring Annuloplasty Silvano-Tono ds Physio Ii Cocr Silicone Polyester Od32 Mm Mitral Salguero Sew Sterile Heart Valve Repair - [id number] - [id number] Implanted:Qty: 1 on 02/24/2017 by Buddy Arzate MD at [facility] Other - see comments N/A: Heart [employer] 02/17/2021 [id number] / [id number] / Description:Mitral annulopla sty ring [facility] Angio-Seal Vip 6fr Closere Device [id number] - [id number] Implanted:Qty: 1 on 04/27/2022 by Kavin Interiano MD at [facility] [employer] 01/17/2023 [id number] / / [id number] Insurance MEDICARE BLUE ACCESS OOS MEDICARE [facility] PREFERRED BLUE ACCESS OOS Member Subscriber Plan / Payer ( fective 2017-Present) Name:Divya Bunnnn Haleigh Relation to Subscriber:Self Name:Dana Bunn Payer ID:[id number] (NAIC) Type: ALLIANCE Address: [address] [place] [id number] MEDICARE Advance Directives For more information, please contact: [phone] * Full Code (Latest Code Status on File) Date Activated Date Inactivated Comments 04/27/2022 10:36 AM 04/27/2022 4:58 PM * Full Code Date Activated Date Inactivated Comments 02/22/2017 4:23 PM 03/04/2017 3:39 PM Care Teams Electric Meter Repairer Helper Relationship Specialty Start Date End Date Donovan Read MD PCP - General Family Practice 07/10/18
--- OUTSIDE RECORDS SUMMARY | 2025-01-28 10:42 | XMS_ITS | Clinical Summary ---
Author Organization [facility] Bradley Rubio Address [address] [place] [address] Care Team Providers Care Auxiliary Operator Name Role Phone Donovan Read MD [...] 2 Active fluticasone propionate (FLONASE) 50 mcg/spray [place], Suspension nasal inhaler Administer 2 Sprays in [...] Encounters Date Type Department Care Team Description 01/27/2025 Orders Only [facility] [address] [place] [phone] Haris Lozano MD Pancytopenia (CMS/HCC) (Primary Dx) 01/08/2025 External Device Data STL ABSTRACTION Provider, [...] st Contact Info) Description 02/05/2025 10:00 AM SALOON KEEPER Office Visit [facility] Oncology and Hematology [facility] [address] [place] [address] Sheila Guillen MD [address] [facility] [address] [place] [address] 09/29/2025 1:00 PM CDT Office Visit [facility] Oncology [facility] [address] [place] [address] Haris Loazno MD [address] [place] [address] Health Maintenance Due Date Last Done Comments DTAP/TDAP/TD VACCINES (1 - Tdap) 05/25/1962 PNEUMOCOCCAL VACCINE 50+ YEARS (1 of 2 - PCV) 05/25/18 61 Traditional Medicare (ACO) Annual Wellness Visit 05/25 ZOSTER VACCINE (1 of 2) 05/25/1993 RSV VACCINE (60+ or ) (1 - 1-dose 75+ series) 05/25/2018 INFLUENZA VACCINE (#1) 2024 Insurance MEDICARE PART A AND B BCBS BLUE ACCESS/TRUE BLUE PPO Care Teams Auxiliary Operator Relationship Specialty Start Date End Date Donovan Read MD [address] [place] [address] PCP - General Family Practice 06/13/23
--- OUTSIDE RECORDS SUMMARY | 2025-01-28 10:42 | XMS_ITS | Encounter Summary ---
Author Organization [facility] Address [address] [facility] [address] [place] [address] Care Team Providers Care Lean Leader Name Role Phone Flavio Sanchez MD Primary Care Provider +1- [phone] Flavio Sanchez MD Primary Care Provider +1- [phone] Mattie Dash MD Primary Care Provider +1- [phone] Donovan Read MD Primary Care Provider Encounter Details Date Type Department Care Team (Late st Contact Info) Description 06/07/2016 Orders Only [facility] ProviderJordan MD [address] [place] [address] Social History Tobacco Use Types Packs/Day Years Used Date Smoking Tobacco: Never Assessed Sex and Gender Information Value Date Recorded Sex Assigned at Not on file 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 Gender Identity Not on file Sexual Orientation [...] on filedocumented in this encounter Care Teams Lean Leader Relationship Specialty Start Date End Date Flavio Sanchez MD [address] [place] [address] PCP - General 06/17/16 03/04/18 Flavio Sanchez MD [address] [place] [address] PCP - General 05/13/13 06/16/16 Mattie Dash MD [address] [place] [address] PCP - General Family Practice 03/05/18 07/09/18 Donovan Read MD [address] [place] [address] PCP - General Family Practice 07/10/18 documented as of this encounter
--- OUTSIDE RECORDS SUMMARY | 2025-01-28 10:43 | XMS_ITS | Clinical Summary ---
Author Organization [facility] Address [address] [place] [address] Care Team Providers Care Personnel Arbitrator Name Role Phone Unavailable Primary Care Provider [...]
--- OUTSIDE RECORDS SUMMARY | 2025-01-28 10:43 | XMS_ITS | Encounter Summary ---
Author Organization [facility] Address [address] [facility] [address] [place] [address] Care Team Providers Care Manager Sourcing Name Role Phone Flavio Sanchez MD Primary Care Provider +1- [phone] Mattie Dash MD Primary Care Provider +1- [phone] Donovan Read MD Primary Care Provider Encounter Details Date Type Department Care Team (Late st Contact Info) Description 07/18/2016 Orders Only [facility] ProviderJordan MD [address] [place] [address] Social History Tobacco Use Types Packs/Day Years Used Date Smoking Tobacco: Former Cigarettes Q uit: 03/20/1981 Alcohol Use Standard Drinks/Week Comments Yes 0 (1 standard drink = 0.6 oz pur e alcohol) Sex and Gender Information Value Date Recorded Sex Assigned at Not on file 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
[2025-01-28 11:27] LABS: Hematocrit 34.1 % (42.0-52.0); Hemoglobin 11.5 g/dL (14.0-18.0); Immature Platelet Fraction Pct 5.0 % (0.9-11.2); Mean Corpuscular HGB Conc 33.7 g/dl (32-36); Mean Corpuscular Hemoglobin 34.0 pg (26-34); Mean Corpuscular Volume 100.9 fl (80-100); Platelet Count Result 60 k/mm3 (150-375); Red Blood Count 3.38 M/mm3 (4.6-6.20)
[2025-01-28 11:47] LABS: Iron 61 ug/dL (49-181)
[2025-01-28 11:56] LABS: Percent Iron Saturation 22 % (20-50)
[2025-01-28 11:57] LABS: Anion Gap 8 mmol/L (4-12); Blood Urea Nitrogen 16 mg/dL (9-20); Calcium 9.0 mg/dL (8.4-10.2); Carbon Dioxide 25 mmol/L (22-30); Chloride 96 mmol/L (98-107); Estimated Glomerular Filt Rate > 60; Glucose 104 mg/dL (65-110); Potassium 4.7 mmol/L (3.4-5.0); Sodium 129 mmol/L (137-145)
[2025-01-28 12:07] LABS: White Blood Count 1.3 K/mm3 (4.5-10.0)
== END 2025-01-28 10:10 | disposition home or self-care (01) ==
PROVIDERS: PCP Family Medicine; Visit Provider Internal Medicine Hematology & Oncology
DX: D61.818 Other pancytopenia (principal); D50.0 Iron deficiency anemia secondary to blood loss (chronic)
CPT/HCPCS: 36415; 71260; 74177; 80048; 82728; 83540; 83550; 85027; 85055; Q9967

== ENCOUNTER 2025-02-01 11:26 | Inpatient (IN) | payer MEDICARE, BC, SELFPAY ==
[2025-02-01] VITALS (11 sets, daily range): BP systolic 134–157; BP diastolic 56–85; PULSE 64–89; RESP 18–20; TEMP 36.4–36.9; O2SAT 92–100; BMI 28.0
--- NOTE | ~2025-02-01 | BM_ITS ---
EXAMINATION: CCL bone marrow asp w bx diag ORDER COMPLETED DATE: 02/04/2025 09:57 INDICATION: Severe pancytopenia TECHNIQUE: A time-out was performed to verify the patient's name, date of , and procedure to be performed. The procedure including the risks and benefits was discussed with the patient. Risks discussed included bleeding, infection, nerve injury and allergic reaction. The patient understood the risks and agreed to proceed. The skin overlying the right posterior iliac spine was prepped and draped in usual sterile fashion. Anesthetic was administered with 1% lidocaine subcutaneously. Moderate conscious sedation was achieved with 50 mcg fentanyl IV and 1 mg of Versed IV. An 11 gauge needle was inserted into the right ilium with fluoroscopic guidance. Bone marrow was aspirated. An 8 gauge needle was then inserted into the right ilium with fluoroscopic guidance. A core bone marrow biopsy was obtained. The needle was removed and the entry site was cleaned and dressed. There were no immediate complications. A total of 8 fluoroscopic images were recorded. Fluoroscopy exposure time was 0.1 minutes. Total DAP was 171 mGycm^2. FINDINGS: Real-time fluoroscopy demonstrates the biopsy needle tip overlying the right posterior iliac spine. IMPRESSION: 1. Successful fluoroscopic guided bone marrow aspiration. 2. Successful fluoroscopic guided bone marrow biopsy. Reviewed, dictated and finalized at location A. R ADVISER
--- NOTE | ~2025-02-01 | XR_ITS ---
Examination: XR chest 2V Clinical History: cough Comparison: 01/27/2025 Technique: PA and Lateral Findings: Cardiomediastinal silhouette normal size and configuration. Lungs clear. No acute bony abnormality. IMPRESSION: 1. No acute cardiopulmonary findings. Reviewed, dictated and finalized at location R. CONCURRENT REVIEW
--- NOTE | 2025-02-01 12:32 | ED.URI ---
HPI - URI/Sore Throat General Chief Complaint: Upper Respiratory Infection Stated Complaint: been feeling under the weather Time Seen by Provider: 02/01/25 11:55 Source: patient Mode of arrival: ambulatory Limitations: no limitations History of Present Illness HPI Narrative: This is an 79-year-old male with history of CAD status post 2 vessel bypass, AFib, hypertension who presents the ED for weakness and nocturnal diaphoresis. Patient states that for the past few weeks, he has been having the symptoms. He has seen his PCP for this or this week and he was found have a low white count so he was referred back to his oncologist for further evaluation. He had a CT scan done earlier this week that did show anything concerning. Patient continues to have the symptoms which is what prompted him come to the ED. He states he has an appointment with oncology next week. He has seen hematology previously due to anemia. Denies fevers, chills, chest pain, shortness of breath, nausea vomiting, diarrhea, constipation. Related Data Home Medications ?Medication ?Instructions ?Recorded ?Confirmed ?Last Taken ?Type multivitamin 1 tablet PO DAILY 03/25/20 02/01/25 02/01/25 History omega-3 fatty acids 1,000 mg 1,200 mg PO DAILY 03/25/20 02/01/25 02/01/25 History capsule rivaroxaban 20 mg tablet (Xarelto) 20 mg PO DAILY 03/25/20 02/01/25 01/31/25 History glucosam 750 mg-chondroi 100 1 tablet PO DAILY 10/06/20 02/01/25 02/01/25 History mg-hyalur 1.65 mg-CF borate 108 mg tablet ([facility]) potassium citrate 99 mg capsule 99 mg PO DAILY 09/30/21 02/01/25 02/01/25 History acetaminophen 325 mg tablet 650 mg PO QAM 01/26/22 02/01/25 02/01/25 History cholecalciferol (vitamin D3) 125 125 mcg PO DAILY 04/11/23 02/01/25 02/01/25 History mcg (5,000 unit) tablet mirabegron 50 mg tablet,extended 50 mg PO DAILY 06/09/23 02/01/25 02/01/25 History release 24 hr (Myrbetriq) B-complex with vitamin C 1 cap PO DAILY 0902/01/25 02/01/25 History loratadine 10 mg tablet (Claritin) 10 mg PO DAILY PRN allergic 04/17/24 02/01/25 02/01/25 History symptoms diclofenac sodium 1 % topical gel 2 g topical DAILY PRN arthritis 10/17/24 02/01/25 02/01/25 History (Voltaren Arthritis Pain) fluticasone propionate 50 2 spray intranasal QHS PRN 10/17/24 02/01/25 01/31/25 History mcg/actuation nasal ALLERGIES spray,suspension (Flonase Allergy Relief) ferrous sulfate 325 mg (65 mg 325 mg PO DAILY 01/27/25 02/01/25 02/01/25 History iron) tablet (Feosol) Allergies Allergy/AdvReac Type Severity Reaction Status Date / Time Beta-Blockers Allergy Severe Other Verified 02/01/25 14:58 (Beta-Adrenergic Bloc oxybutynin Allergy Severe Fainting Verified 02/01/25 14:58 Review of Systems Review of Systems: Gen.: Denies fevers or chills Eyes: Denies eye pain or visual change ENT: Denies congestion Respiratory: Denies shortness of breath or cough CV: Denies chest pain or palpitations GI: Denies abdominal pain nausea, emesis or diarrhea denies burning, urgency, frequency or hematuria Musculoskeletal: Denies back pain or muscle pain Neuro: As per HPI Skin: Denies rash Except as documented, all other systems reviewed and negative [facility] Past Medical History Medical History (Updated 02/01/25 @ 19:28 by Alvaro Hickey DO) Hyperlipidemia Iron deficiency anemia Prediabetes Environmental allergies BPH (benign prostatic hyperplasia) Osteoarthritis CAD in [place] artery Dyslipidemia Essential (primary) hypertension Atrial fibrillation Surgical History Surgical History History of hemorrhoidectomy (~05/2008) History of tonsillectomy (~195) History of arthroscopy of right knee - Meniscus repair 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 History of exploratory laparotomy History of mitral valve repair Family History Family History Sibling Depression Mother Hypertension Father Cerebrovascular accident Family history of malignant neoplasm Social History Social History Social History: Caffeine-coffee Smoking packs per day: 2 Smoking cigarettes per day: 40.0 Years smoked: 16 Smoking pack-years: 32.00 Smoking status: Former smoker Tobacco type: cigarettes and smokeless tobacco Smokeless tobacco user: chewing tobacco Second hand tobacco smoke exposure: No Smoking end date: 03/20/69 Additional smoking assessment comments: Lip tobacco 16 years after quit smoking. Alcohol intake: current Drinks per week: 0 Alcohol use details: occasionally Substance use: never Substance use type: does not use Lack of Transportation: No Lack of Food: Never True Current Housing: I Have Housing Concerned About Future Housing: No Difficulty Paying Gas/Electric Bills: No Difficulty Paying for Meds: No Currently Unemployed: No Education: High School Diploma/GED Difficulty w/ Childcare or Family Care: No Living arrangements: with family Occupation/Education: retired Gender identity (if verbalized by the patient): Male Sexual Orientation (if Verbalized by the Patient): Straight or Heterosexual Spiritual care concerns: No Exam Narrative: APPEARANCE: No acute distress, nontoxic, resting in bed EYES: EOMI HEENT: Normocephalic, atraumatic, OMM RESPIRATORY: No respiratory distress Clear to auscultation bilaterally with no rhonchi wheezing or rales. CARDIOVASCULAR: Regular rate and rhythm without murmurs rubs or gallops. ABDOMINAL: Soft, nontender, nondistended, no rebound or guarding MUSCULOSKELETAl: Moves all extremities. No clubbing, cyanosis or edema. NEURO: Awake and alert. Following commands, speech normal, no focal deficits SKIN:: Warm, dry. No rashes lesions or abrasions PSYCHIATRIC: Normal affect/mood, Course Vital Signs Vital signs: Vital Signs Temperature 97.6 F 02/01/25 11:30 Pulse Rate 88 02/01/25 11:30 Respiratory Rate 20 02/01/25 11:30 Blood Pressure 134/66 02/01/25 11:30 Pulse Oximetry 99 02/01/25 11:30 Oxygen Delivery Room Air 02/01/25 11:30 Temperature 98.5 F 02/01/25 15:51 Pulse Rate 69 02/01/25 18:00 Respiratory Rate 20 02/01/25 15:51 Blood Pressure 157/69 H 02/01/25 15:51 Pulse Oximetry 100 02/01/25 15:51 Oxygen Delivery Room Air 02/01/25 12:37 MDM - URI/Sore Throat MDM Narrative Medical decision making narrative: Hey 1-year-old male Presenting for generalized weakness. On initial evaluation patient was in no acute distress afebrile, hemodynamic stable. Differentials include but are not limited to: Pneumonia, UTI, overdose, viral syndrome, who electrolyte abnormality, anemia, cancer Notable exam findings: Heart and lungs clear. Abdomen soft and nontender. I personally reviewed the patient's lab result. Notable lab findings: Leukopenic at 1.2 with neutropenia at 200, leukopenia is worsening from prior the neutropenia is stable. Pancytopenia with worsening thrombocytopenia. Hyponatremic at 1:25 a.m. which appears new. COVID/flu/RSV negative. I personally reviewed the patient's images and interpret as follows: Chest x-ray showed no acute process. Given the significant neutropenia, I did discuss the case with on-call Oncology, Dr. Guillen, who recommended adding LDH, vitamin B12, folate, peripheral smear, flow cytometry. Also recommended treating the patient as neutropenic fever at this time with broad-spectrum antibiotics and will likely perform bone marrow biopsy in the coming days. Oncology will follow as a consult. Case was discussed with hospitalist who will admit the patient. Discussed this with the patient and the family and they are agreeable to this plan. Medical Records Attestation: I reviewed the patient's medical records. Lab Data Attestation: I reviewed the patient's lab results. 02/01/25 12:31 02/01/25 12:31 Labs: Lab Results 02/01/25 02/01/25 Range/Units 11:39 12:31 WBC 1.2 L* (4.5-10.0) K/mm3 RBC 3.28 L (4.6-6.20) M/mm3 Hgb 11.1 L (14.0-18.0) g/dL Hct 32.5 L (42.0-52.0) % MCV 99.1 (80-100) fl MCH 33.8 (26-34) pg MCHC 34.2 (32-36) g/dl RDW 14.5 (11.5-14.5) % Plt Count 76 L (150-375) k/mm3 MPV 10.9 H (7.4-10.4) fl Immature Gran % (Auto) 1.7 H (0-0.5) % Neut % (Auto) 17.5 L (45.5-73.1) % Lymph % (Auto) 43.3 (18.3-44.2) % [place] % (Auto) 37.5 H (2.6-8.5) % Eos % (Auto) 0.0 (0-4.4) % Baso % (Auto) 0.0 L (0.2-1.2) % Lymph # (Auto) 0.52 L (0.9-3.2) K/mm3 [place] # (Auto) 0.5 (0.1-0.6) K/mm3 Eos # (Auto) 0.0 (0-0.3) K/mm3 Baso # (Auto) 0.0 (0.0-0.1) K/mm3 Abs Immat Gran (auto) 0.02 (0.00-0.031) K/mm3 Absolute Neuts (auto) 0.2 L* (1.3-6.7) K/mm3 Absolute Nucleated RBC 0.000 (0.0-0.012) K/mm3 Nucleated RBC % 0.0 (0.0-0.2) % % Immature Plt Fraction 5.3 (0.9-11.2) % Sodium 125 L (137-145) mmol/L Potassium 4.1 (3.4-5.0) mmol/L Chloride 94 L (98-107) mmol/L Carbon Dioxide 21 L (22-30) mmol/L Anion Gap 10 (4-12) mmol/L BUN 17 (9-20) mg/dL Creatinine 0.84 (0.7-1.3) mg/dL Estim Creat Clear Calc 66 ml/min Estimated GFR > 60 (59 - ) Glucose 110 (65-110) mg/dL Calcium 8.8 (8.4-10.2) mg/dL Influenza A (RT-PCR) Negative (Negative) Influenza B (RT-PCR) Negative (Negative) SARS-CoV-2 RNA (RT-PCR) Negative (Negative) RODRIGO, IgG Interpret Neg RODRIGO, Poly Interpret Negative RODRIGO, Complement Interp Not Performed Indirect Antiglob Test Negative Imaging Data Attestation: I personally reviewed and interpreted this imaging study as follows: Radiologist's impression: Impressions Chest X-Ray 02/01/25 12:56 IMPRESSION: 1. No acute cardiopulmonary findings. Discharge Plan Discharge Clinical Impression: Neutropenic fever, Acquired pancytopenia, Acute hyponatremia Patient Disposition: Still a Patient Condition: Stable
[2025-02-01 12:39] LABS: Hematocrit 32.5 % (42.0-52.0); Hemoglobin 11.1 g/dL (14.0-18.0); Immature Granulocyte Percent A 1.7 % (0-0.5); Immature Platelet Fraction Pct 5.3 % (0.9-11.2); Lymphocytes Absolute Auto 0.52 K/mm3 (0.9-3.2); Mean Corpuscular HGB Conc 34.2 g/dl (32-36); Mean Corpuscular Hemoglobin 33.8 pg (26-34); Mean Corpuscular Volume 99.1 fl (80-100); Nucleated Red Blood Cells Absolute Auto 0.000 K/mm3 (0.0-0.012); Nucleated Red Blood Cells Perc 0.0 % (0.0-0.2); Platelet Count Result 76 k/mm3 (150-375); Red Blood Count 3.28 M/mm3 (4.6-6.20)
[2025-02-01 12:45] LABS: Influenza A QL RT-PCR Negative (Negative); Influenza B QL RT-PCR Negative (Negative); SARS-CoV-2 RNA PCR Negative (Negative)
[2025-02-01 12:48] LABS: Anion Gap 10 mmol/L (4-12); Blood Urea Nitrogen 17 mg/dL (9-20); Calcium 8.8 mg/dL (8.4-10.2); Carbon Dioxide 21 mmol/L (22-30); Chloride 94 mmol/L (98-107); Estimated CRCL calculation 66 ml/min; Estimated Glomerular Filt Rate > 60; Glucose 110 mg/dL (65-110); Potassium 4.1 mmol/L (3.4-5.0); Sodium 125 mmol/L (137-145)
[2025-02-01] MEDS: SODIUM CHLORIDE 0.9% IV 1,000 ML 999 ML IV CONT ×2 (13:02→21:36)
[2025-02-01 13:05] LABS: White Blood Count 1.2 K/mm3 (4.5-10.0)
--- NOTE | 2025-02-01 13:42 | PC.NURSE ---
getting blood cultures at this time.
--- NOTE | 2025-02-01 14:05 | P.HP_ITS ---
H&P: HPI History of Present Illness Date/Time: 02/01/25 14:05 Chief Complaint: Malaise Narrative: 79-year-old male with past medical history of CABG, AFib, hypertension who presents the hospital with malaise and diaphoresis. He states that he has been at his PCP a couple times and lab work has shown a low white count. He had a CT which did not show any acute findings. His PCP had recommended Oncology outpa tient workup. On bedside exam patient has rigors. He denies shortness of breath, nausea or vomiting. Lab work in the ED shows leukopenia at 1.2, hemoglobin of 11.1, platelets of 76, absolute neutrophils of 0.2, sodium of 125, chloride of 94, carbon dioxide 21, influenza A/B, RSV negative. Chest x-ray shows no acute findings. EKG shows atrial flutter rate of 61 Patient is being admitted for neutropenic fever and Oncology has been consulted. Review of Systems Review of Systems: 12 systems were reviewed and are negativ e except for as per HPI. [facility] Past Medical History Medical History (Updated 02/01/25 @ 19:28 by Alvaro Hickey DO) Hyperlipidemia Iron deficiency anemia Prediabetes Environmental allergies BPH (benign prostatic hyperplasia) Osteoarthritis CAD in [place] artery Dyslipidemia Essential (primary) hypertension Atrial fibrillation Surgical History Surgical History History of hemorrhoidectomy (~05/2008) History of tonsillectomy (~195) History of arthroscopy of right knee 1990s - Meniscus repair 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 History of exploratory laparotomy History of mitral valve repair Family History Family History Sibling Depression Mother Hypertension Father Cerebrovascular accident Family history of malignant neoplasm Social History Social History Social History: Caffeine-coffee Smoking packs per day: 2 Smoking cigarettes per day: 40.0 Years smoked: 16 Smoking pack-years: 32.00 Smoking status: Former smoker Tobacco type: cigarettes and smokeless tobacco Smokeless tobacco user: chewing tobacco Second hand tobacco smoke exposure: No Smoking end date: 03/20/69 Additional smoking assessment comments: Lip tobacco 16 years after quit smoking. Alcohol intake: current Drinks per week: 0 Alcohol use details: occasionally Substance use: never Substance use type: does not use Lack of Transportation: No Lack of Food: Never True Current Housing: I Have Housing Concerned About Future Housing: No Difficulty Paying Gas/Electric Bills: No Difficulty Paying for Meds: No Currently Unemployed: No Education: High School Diploma/GED Difficulty w/ Childcare or Family Care: No Living arrangements: with family Occupation/Education: retired Gender identity (if verbalized by the patient): Male Sexual Orientation (if Verbalized by the Patient): Straight or Heterosexual Spiritual care concerns: No Meds Home Medications and Allergies Home Medications ?Medication ?Instructions ?Recorded ?Confirmed ?Type multivitamin 1 tablet PO DAILY 03/25/20 1 04/03/24 History omega-3 fatty acids 1,000 mg 1,200 mg PO DAILY 1 02/01/25 History capsule rivaroxaban 20 mg tablet (Xarelto) 20 mg PO DAILY 09/0702/01/25 History glucosam 750 mg-chondroi 100 1 tablet PO DAILY 1 02/01/25 History mg-hyalur 1.65 mg-CF borate 108 mg tablet ([employer]) potassium citrate 99 mg capsule 99 mg PO DAILY 2 02/01/25 History acetaminophen 325 mg tablet 650 mg PO QAM 01/26/22 History cholecalciferol (vitamin D3) 125 125 mcg PO DAILY 03/2102/01/25 History mcg (5,000 unit) tablet mirabegron 50 mg tablet,extended 50 mg PO DAILY 02/01/25 History release 24 hr (Myrbetriq) B-complex with vitamin C 1 cap PO DAILY 12/05/2301/18 History loratadine 10 mg tablet (Claritin) 10 mg PO DAILY PRN allergic 04/17/24 02/01/25 History symptoms diclofenac sodium 1 % topical gel 2 g topical DAILY MI N arthritis 10/17/24 02/01/25 History (Voltaren Arthritis Pain) fluticasone propionate 50 2 spray intranasal QHS PRN 0 10/17/24 02/01/25 History mcg/actuation nasal ALLERGIES spray,suspension (Flonase Allergy Relief) tamsulosin 0.4 mg capsule (Flomax) 0.4 mg PO DAILY #90 caps 12/04/24 02/01/25 Rx losartan 50 mg tablet 50 mg PO DAILY #90 tabs 11/1902/01/25 Rx atorvastatin 20 mg tablet 20 mg PO QHS #90 tabs 02/01/25 Rx ferrous sulfate 325 mg (65 mg 325 mg PO DAILY 01/27/25 02/01/25 History iron) tablet (Feosol) Allergies Allergy/AdvReac Type Severity Reaction Status Date / Time Beta-Blockers Allergy Severe Other Verified 02/01/25 14:58 (Beta-Adrenergic Bloc oxybutynin Allergy Severe Fainting Verified 02/01/25 14:58 Vital Signs Vital Signs - 24 hr 02/01/25 11:30 02/01/25 12:37 Temperature 97.6 F Pulse Rate 88 Respiratory Rate 20 Blood Pressure 134/66 Pulse Oximetry 99 99 Oxygen Delivery Room Air Room Air Exam Narrative: General: Ill-appearing, no respiratory distress, rigors HEENT: normocephalic, atraumatic. Mucous membranes moist. EOMI, PERRLA, bilateral sclera anicteric, no conjunctival injection. Neck supple without JVD, lymphadenopathy, or bruit. Respiratory: clear bilaterally. No rales/rhonic/wheezes. Cardiovascular: Regular rate and rhythm, normal S1-S2. No murmurs, rubs, or clicks. PMI is nondisplaced, capillary refill less than 3 second. Abdomen: Soft, round, no pulsatile masses, nondistended and nontender. No rebound, no guarding. Bowel sounds present to all four quadrants. No high pitch or tinkling sounds, resonant to percussion. Extremities: No cyanosis, clubbing, or edema present. Pulses are palpable 2/2. Active ROM to all four extremities. Neuro: Alert and orientated x 4. PERRLA. Cranial nerves 2-12 intact without focal deficit. Skin: Warm, dry, and intact, without rash, erythema, or lesion. Psych: pleasant, cooperative, normal speech, normal affect, no hallucinations, no dysarthia H&P: Results Labs Labs: Short CBC 02/01/25 Range/Units 12:31 WBC 1.2 L* (4.5-10.0) K/mm3 Hgb 11.1 L (14.0-18.0) g/dL Hct 32.5 L (42.0-52.0) % Plt Count 76 L (150-375) k/mm3 BMP 02/01/25 12:31 Sodium 125 L Potassium 4.1 Chloride 94 L Carbon Dioxide 21 L BUN 17 Creatinine 0.84 Glucose 110 Calcium 8.8 Assessment and Plan Assessment and plan (1) Neutropenic fever: Code(s): D70.9 - Neutropenia, unspecified; R50.81 - Fever presenting with conditions classified elsewhere Status: Acute Assessment and Plan: Admit to IMU for at least 24 hours Oncology consulted IV Zosyn and vancomycin Blood cultures pending Patient will likely need bone marrow biopsy outpatient IV fluids (2) Pancytopenia: Code(s): D61.818 - Other pancytopenia Status: Acute Assessment and Plan: See plan above (3) Essential (primary) hypertension: Code(s): I10 - Essential (primary) hypertension Status: Acute Assessment and Plan: Continue Cozaar (4) CAD in [place] artery: Code(s): I25.10 - Atherosclerotic heart disease of [place] coronary artery without angina pectoris Status: Acute Assessment and Plan: Continue statin, continue Cozaar, continue Xarelto (5) Atrial fibrillation: Qualifiers: Atrial fibrillation type: longstanding persistent Qualified Code(s): I48.11 - Longstanding persistent atrial fibrillation Code(s): I48.91 - Unspecified atrial fibrillation Status: Acute Assessment and Plan: Continue Xarelto (6) BPH (benign prostatic hyperplasia): Qualifiers: Lower urinary tract symptom presence: unspecified whether lower urinary tract symptoms present Qualified Code(s): N40.0 - Benign prostatic hyperplasia without lower urinary tract symptoms Code(s): N40.0 - Benign prostatic hyperplasia without lower urinary tract symptoms Status: Acute Assessment and Plan: Continue Flomax (7) Hyperlipidemia: Code(s): E78.5 - Hyperlipidemia, unspecified Status: Acute Assessment and Plan: Continue statin Quality VTE Prophylaxis VTE prophylaxis: mechanical ordered and pharmacologic ordered If No VTE Prophylaxis Answer both mechanical and pharmacologic: Reason no pharmacologic proph: medical contraindication thrombocytopenia Hospitalist MIPS Advance Care Plan I have confirmed that the patient's Advanced Care Plan is present, code status is documented, or surrogate decision maker is listed in patient medical record.: Yes Medication Reconciliation I have utilized all available resources to obtain, update and review the patients current medications (includes all prescriptions, OTC, herbals, cannabis, and nutritional supplements).: Yes
--- NOTE | 2025-02-01 14:09 | WPCEDHO ---
ED Hand Off Checklist All vitals saved: yes IV Site documented:yes All med administrations documented:yes Triage Note Triage Note Pt to ed ambulatory co feeling 02/01/25 11:30 weak, cough, congestion, runny nose. Pt is also reporting seeing cancer doctor r/t low WBC Allergies Beta-Blockers (Beta-Adrenergic Bloc Allergy (Severe, Verified 02/01/25 11:33) Other bradycardia,fainting oxybutynin Allergy (Severe, Verified 02/01/25 11:33) Fainting Family History (Last Reviewed 02/01/25 @ 12:34 by Alvaro Hickey DO) Sibling Depression Mother Hypertension Father Cerebrovascular accident Family history of malignant neoplasm Administered/Completed Medications Discontinued Medications Sodium Chloride (Normal Saline Iv) 1,000 mls @ 999 mls/hr IV CONT .Q1H1M STA Stop: 02/01/25 13:52 Last Infusion: 02/01/25 13:39 Dose: Infused Documented By: Admin: 02/01/25 13:02 Dose: 999 mls/hr Documented By: VIET Notes 02/01/25 13:42 Nurse Note by Terri Cartagena getting blood cultures at this time. Initialized on 02/01/25 13:42 - END OF NOTE Interventions/Assessments IV / Saline Lock, Insert Start: 02/01/25 11:26 Freq: Status: Active Protocol: Document 02/01/25 12:38 VIET (Rec: 02/01/25 12:38 AMR [id number]) IV Assessment Peripheral Access Left Antecubital IV Catheter Access Initiated IV Insertion Date 02/01/25 IV Insertion Time 12:38 Catheter Gauge 20 IV Insertion 1 Attempts Ultrasound Used for No Placement IV Site Assessment WNL IV Care and WNL,Access Locked Maintenance PA: Respiratory Assessment Start: 02/01/25 11:26 Freq: Status: Active Protocol: Document 02/01/25 12:37 VIET (Rec: 02/01/25 12:37 AMR [id number]) Respiratory Assessment Symptoms Cough Effort Normal Pattern Regular Depth Normal Chest Expansion Symmetrical Adult Capillary Normal/Less than 2 Seconds Refill Posterior Bilateral Throughout Phase Inspiratory & Expiratory Lung Sounds Clear Cough Frequency Intermittent Oxygen Delivery Oxygen Delivery Room Air Pulse Oximetry (90- 99 100) Last Vital Signs Temperature 97.6 F 02/01/25 11:30 Pulse Rate 88 02/01/25 11:30 Respiratory Rate 20 02/01/25 11:30 Pulse Oximetry 99 02/01/25 12:37 Blood Pressure 134/66 02/01/25 11:30 Blood Pressure Mean 88 02/01/25 11:30 Blood Pressure Position Sitting 02/01/25 11:30 Oxygen Delivery Room Air 02/01/25 12:37 Weight 96.7 kg 02/01/25 11:30 Last Result - Abnormals Only WBC 1.2 K/mm3 (4.5-10.0) L* 02/01/25 12:31 RBC 3.28 M/mm3 (4.6-6.20) L 02/01/25 12:31 Hgb 11.1 g/dL (14.0-18.0) L 02/01/25 12:31 Hct 32.5 % (42.0-52.0) L 02/01/25 12:31 Plt Count 76 k/mm3 (150-375) L 02/01/25 12:31 MPV 10.9 fl (7.4-10.4) H 02/01/25 12:31 Immature Gran % (Auto) 1.7 % (0-0.5) H 02/01/25 12:31 Neut % (Auto) 17.5 % (45.5-73.1) L 02/01/25 12:31 [place] % (Auto) 37.5 % (2.6-8.5) H 02/01/25 12:31 Baso % (Auto) 0.0 % (0.2-1.2) L 02/01/25 12:31 Lymph # (Auto) 0.52 K/mm3 (0.9-3.2) L 02/01/25 12:31 Absolute Neuts (auto) 0.2 K/mm3 (1.3-6.7) L* 02/01/25 12:31 Sodium 125 mmol/L (137-145) L 02/01/25 12:31 Chloride 94 mmol/L (98-107) L 02/01/25 12:31 Carbon Dioxide 21 mmol/L (22-30) L 02/01/25 12:31 Most Recent Suicide Severity Rating Suicide Severity Rating NO RISK INDICATED 02/01/25 11:30
[2025-02-01] MEDS: PIPERACILLIN/TAZOBACTAM SOD 4.5 GM in SODIUM CHLORIDE 0.9% IV 100 ML 200 ML IVPB (14:27)
--- NOTE | 2025-02-01 14:57 | ADMGEN ---
This patient, Augie Bunn, was admitted to IMU Room 212-01. Patient/family oriented to hospital policies and general routines including ID bracelet, bed and alarms, visiting hours, pain management, procedures, bathroom and other care routines, personal items, smoking policy, room service/diet, and visiting hours. Information on how to activate the Rapid Response Team has been discussed. Patient/Family are encouraged to report perceived risks to care and to ask questions if they do not understand what they are told or what they should do.
[2025-02-01] MEDS: VANCOMYCIN 1,250 MG/NS 250 ML 1,250 MG/250 ML BAG 166.67 MG IVPB (15:02)
--- NOTE | 2025-02-01 15:41 | P.CONONC_ITS ---
Assessment and Plan Assessment and plan (1) Neutropenic fever: Code(s): D70.9 - Neutropenia, unspecified; R50.81 - Fever presenting with conditions classified elsewhere Status: Acute Assessment and Plan: Admit to IMU for at least 24 hours Oncology consulted IV Zosyn vancomycin Blood cultures pending (2) Pancytopenia: Code(s): D61.818 - Other pancytopenia Status: Acute Assessment and Plan: See plan above (3) Essential (primary) hypertension: Code(s): I10 - Essential (primary) hypertension Status: Acute (4) CAD in [place] artery: Code(s): I25.10 - Atherosclerotic heart disease of [place] coronary artery without angina pectoris Status: Acute (5) Atrial fibrillation: Qualifiers: Atrial fibrillation type: longstanding persistent Qualified Code(s): I 48.11 - Longstanding persistent atrial fibrillation Code(s): I48.91 - Unspecified atrial fibrillation Status: Acute (6) BPH (benign prostatic hyperplasia): Qualifiers: Lower urinary tract symptom presence: unspecified whether lower urinary tract symptoms present Qualified Code(s): N40.0 - Benign prostatic hyperplasia without lower urinary tract symptoms Code(s): N40.0 - Benign prostatic hyperplasia without lower urinary tract symptoms Status: Acute (7) Hyperlipidemia: Code(s): E78.5 - Hyperlipidemia, unspecified Status: Acute Plan As above HPI Data of Consult Date/Time: 02/01/25 15:41 Requesting Physician: Baeu Mendoza DO Primary Care Provider: Donovan Read MD Consult Narrative Narrative: Augie Bunn is a 79 year old male known to Dr. Lozano with a history of iron deficiency and who presented to the ER today with weakeness and nocturnal diaphoresis. Labs show pancytopenia which is a marked difference to the labs from 09/2024 when last seen by Dr. Lozano. He had an appt to be seen by Hematology next week. Labs: (10/01/24): WBC 4.5, Hgb 14.4, Hct 43.4, MCV 91.4, Plt 150 (01/27/25): WBC 1.9, ANC 0.2, lymph 0.74, mono 1.0, Hgb 11.9, Hct 25.5, MCV 102.0, Plt 71 (01/28/25): WBC 1.3, Hgb 11.5, Hct 34.1, MCV 100.9, Plt 60, ferritin 593 (02/01/25); WBC 1.2, ANC 0.2, lymph 0.52, mono 0.5, Hgb 11.1, Hct 32.5,MCV 99.1, Plt 76 CT CAP (01/28/25): 1. Borderline pathologic size paratracheal lymph nodes but no bulky lymphadenopathy or masses seen within the chest abdomen or pelvis. 2. No focal acute process. IMPRESSION: Pancytopenia DD: BM infiltration/replacement with leukemia, MDS, MM, or cancer BM failure seen with drugs, LDL leukemia, autoimmune disorders as well as nutritional deficiencies. Destruction/sequestration with infections, etc. ORDERS: - NO growth factor - Prophylactic antibiotic - Draw labs including Vitamin B12, folate, LDH, beta-2 microglobulin, retic, SPEP with reflex testing, peripheral smear, flow cytometry for L/L panel - BM aspiration and biopsy with flow cytometry Peripheral smear evaluated by tn - markedly decreased neutrophils with scattered toxic granulations. No hypersegmented neutrophils. No blasts. Occasional reactive lymphocyte. No schistocytes. Some rouleaux formation. No plt clumping. Occasional large platelets. NO evidence of acute leukemia via this slide. Will await lab and BM results. Review of Systems 2 Constitutional: Comments: Dizziness. Drenching night sweats from the waist up for the past 3 weeks. Fatigue. ENT: Comments: No sore throat Respiratory: Comments: Cough. No phlegm production. Gastrointestinal: Comments: Alittle dark stools but patient takes iron supplementation. Musculoskeletal: Comments: Pain in shoulders that is now somewhat improved. Neurologic: Comments: No headaches. [facility] Past Medical History Medical History (Updated 02/01/25 @ 14:10 by Concetta Gómez APRN) Hyperlipidemia Iron deficiency anemia Prediabetes Environmental allergies BPH (benign prostatic hyperplasia) Osteoarthritis CAD in [place] artery Dyslipidemia Essential (primary) hypertension Atrial fibrillation Surgical History Surgical History History of hemorrhoidectomy (~05/2008) History of tonsillectomy (~1951) History of arthroscopy of right knee - Meniscus repair 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 History of exploratory laparotomy History of mitral valve repair Family History Family History Sibling Depression Mother Hypertension Father Cerebrovascular accident Family history of malignant neoplasm Social History Social History Social History: Caffeine-coffee Smoking packs per day: 2 Smoking cigarettes per day: 40.0 Years smoked: 16 Smoking pack-years: 32.00 Smoking status: Former smoker Tobacco type: cigarettes and smokeless tobacco Smokeless tobacco user: chewing tobacco Second hand tobacco smoke exposure: No Smoking end date: 03/20/69 Additional smoking assessment comments: Lip tobacco 16 years after quit smoking. Alcohol intake: current Drinks per week: 0 Alcohol use details: occasionally Substance use: never Substance use type: does not use Lack of Transportation: No Lack of Food: Never True Current Housing: I Have Housing Concerned About Future Housing: No Difficulty Paying Gas/Electric Bills: No Difficulty Paying for Meds: No Currently Unemployed: No Education: High School Diploma/GED Difficulty w/ Childcare or Family Care: No Living arrangements: with family Occupation/Education: retired Gender identity (if verbalized by the patient): Male Sexual Orientation (if Verbalized by the Patient): Straight or Heterosexual Spiritual care concerns: No Meds Home Medications and Allergies Home Medications ?Medication ?Instructions ?Recorded ?Confirmed ?Type multivitamin 1 tablet PO DAILY 03/25/2004/03/24 History omega-3 fatty acids 1,000 mg 1,200 mg PO DAILY 02/01/25 History capsule rivaroxaban 20 mg tablet (Xarelto) 20 mg PO DAILY 09/0702/01/25 History glucosam 750 mg-chondroi 100 1 tablet PO DAILY 1 02/01/25 History mg-hyalur 1.65 mg-CF borate 108 mg tablet ([facility] [employer]) potassium citrate 99 mg capsule 99 mg PO DAILY 2 02/01/25 History acetaminophen 325 mg tablet 650 mg PO QAM 01/26/22 History cholecalciferol (vitamin D3) 125 125 mcg PO DAILY 03/2102/01/25 History mcg (5,000 unit) tablet mirabegron 50 mg tablet,extended 50 mg PO DAILY 02/01/25 History release 24 hr (Myrbetriq) B-complex with vitamin C 1 cap PO DAILY 12/05/2301/18 History loratadine 10 mg tablet (Claritin) 10 mg PO DAILY PRN allergic 04/17/24 02/01/25 History symptoms diclofenac sodium 1 % topical gel 2 g topical DAILY ID N arthritis 10/17/24 02/01/25 History (Voltaren Arthritis Pain) fluticasone propionate 50 2 spray intranasal QHS PRN 0 10/17/24 02/01/25 History mcg/actuation nasal ALLERGIES spray,suspension (Flonase Allergy Relief) tamsulosin 0.4 mg capsule (Flomax) 0.4 mg PO DAILY #90 caps 12/04/24 02/01/25 Rx losartan 50 mg tablet 50 mg PO DAILY #90 tabs 11/1902/01/25 Rx atorvastatin 20 mg tablet 20 mg PO QHS #90 tabs 02/01/25 Rx ferrous sulfate 325 mg (65 mg 325 mg PO DAILY 01/27/25 02/01/25 History iron) tablet (Feosol) Allergies Allergy/AdvReac Type Severity Reaction Status Date / Time Beta-Blockers Allergy Severe Other Verified 02/01/25 14:58 (Beta-Adrenergic Bloc oxybutynin Allergy Severe Fainting Verified 02/01/25 14:58 Vital Signs Vital Signs - 24 hr 02/01/25 11:30 02/01/25 12:37 02/01/25 14:28 Temperature 36.4 C Pulse Rate 88 72 Respiratory Rate 20 18 Blood Pressure 134/66 145/66 H Pulse Oximetry 99 99 100 Oxygen Delivery Room Air Room Air 02/01/25 15:02 Temperature 36.4 C L Pulse Rate 64 Respiratory Rate 18 Blood Pressure 135/66 Pulse Oximetry 99 Oxygen Delivery Exam 2 Narrative: Const: Other: Well nourished male who looks fatigued. HENMT: Other: No oral lesions.No thrush. Eyes: Other: Anicteric sclerae Neck: Other: No LNs palpable in cervical, supraclavicular or axillary areas. Resp: Other: Bilateral air entry with no wheezing or rhonchi Cardio: Other: RRR GI: Other: Soft, NT, BS nl. No HSM palpable. No masses palpable. Back/Spine/Pelvis: Other: Nontender back. Skin: Other: No rashes or petechiae Neuro: Other: Alert and oriented. Grossly nonfocal. Extrem: Other: No c/c/e Psych: Other: Affect normal. Results Labs 02/01/25 12:31 02/01/25 12:31 Labs: Short CBC 02/01/25 Range/Units 12:31 WBC 1.2 L* (4.5-10.0) K/mm3 Hgb 11.1 L (14.0-18.0) g/dL Hct 32.5 L (42.0-52.0) % Plt Count 76 L (150-375) k/mm3 [facility] 02/01/25 12:31 Sodium 125 L Potassium 4.1 Chloride 94 L Carbon Dioxide 21 L BUN 17 Creatinine 0.84 Glucose 110 Calcium 8.8
[2025-02-01 15:43] LABS: MRSA (PCR) NOT DETECTED (NOT DETECTE)
[2025-02-01 16:17] LABS: Iron 50 ug/dL (49-181)
[2025-02-01 16:26] LABS: Percent Iron Saturation 20 % (20-50)
[2025-02-01 16:57] LABS: Vitamin B12 > 1000.0 pg/mL (239-931)
[2025-02-01] MEDS: VANCOMYCIN HCL 1,000 MG in SODIUM CHLORIDE 0.9% IV 250 ML 250 MG IVPB (16:57)
[2025-02-01] MEDS: ATORVASTATIN 20 MG TABLET PO (20:19)
[2025-02-01] MEDS: PIPERACILLIN/TAZOBACTAM SOD 3.375 GM in SODIUM CHLORIDE 0.9% IV 50 ML 100 ML IVPB (20:19)
[2025-02-01] MEDS: SODIUM CHLORIDE 0.9% IV 1,000 ML 75 ML IV CONT (20:56)
[2025-02-01] MEDS: ACETAMINOPHEN 325 MG TABLET 650 MG PO (20:56)
[2025-02-01 21:16] LABS: Anion Gap 11 mmol/L (4-12); Blood Urea Nitrogen 16 mg/dL (9-20); Calcium 8.7 mg/dL (8.4-10.2); Carbon Dioxide 21 mmol/L (22-30); Chloride 99 mmol/L (98-107); Estimated CRCL calculation 72 ml/min; Estimated Glomerular Filt Rate > 60; Glucose 135 mg/dL (65-110); Potassium 4.1 mmol/L (3.4-5.0); Sodium 131 mmol/L (137-145)
[2025-02-02] VITALS (14 sets, daily range): BP systolic 116–142; BP diastolic 56–71; PULSE 70–93; RESP 12–20; TEMP 36.4–37.3; O2SAT 95–98
[2025-02-02] MEDS: PIPERACILLIN/TAZOBACTAM SOD 3.375 GM in SODIUM CHLORIDE 0.9% IV 50 ML 100 ML IVPB ×4 (01:51→20:50)
[2025-02-02 04:48] LABS: Hematocrit 31.6 % (42.0-52.0); Hemoglobin 10.6 g/dL (14.0-18.0); Immature Granulocyte Percent A 0.8 % (0-0.5); Immature Platelet Fraction Pct 6.2 % (0.9-11.2); Lymphocytes Absolute Auto 0.43 K/mm3 (0.9-3.2); Mean Corpuscular HGB Conc 33.5 g/dl (32-36); Mean Corpuscular Hemoglobin 34.2 pg (26-34); Mean Corpuscular Volume 101.9 fl (80-100); Nucleated Red Blood Cells Absolute Auto 0.000 K/mm3 (0.0-0.012); Nucleated Red Blood Cells Perc 0.0 % (0.0-0.2); Platelet Count Result 75 k/mm3 (150-375); Red Blood Count 3.10 M/mm3 (4.6-6.20)
[2025-02-02 05:13] LABS: White Blood Count 1.2 K/mm3 (4.5-10.0)
[2025-02-02 05:14] LABS: Anion Gap 8 mmol/L (4-12); Blood Urea Nitrogen 14 mg/dL (9-20); Calcium 8.4 mg/dL (8.4-10.2); Carbon Dioxide 22 mmol/L (22-30); Chloride 101 mmol/L (98-107); Estimated CRCL calculation 73 ml/min; Estimated Glomerular Filt Rate > 60; Glucose 117 mg/dL (65-110); Potassium 4.2 mmol/L (3.4-5.0); Sodium 131 mmol/L (137-145)
[2025-02-02 05:43] LABS: Anisocytosis 1+; Microcytosis 1+ (NORMAL)
[2025-02-02 05:44] LABS: Burr Cells 1+; Schistocytes Rare
[2025-02-02] MEDS: LOSARTAN POTASSIUM 50 MG TABLET PO (08:57)
[2025-02-02] MEDS: TAMSULOSIN HCL 0.4 MG CAPSULE PO (08:57)
[2025-02-02] MEDS: FERROUS SULFATE 325 MG TABLET BY MOUTH (08:57)
[2025-02-02] MEDS: MIRABEGRON 50 MG ER TABLET PO (08:57)
--- NOTE | 2025-02-02 09:11 | P.PNIM_ITS ---
Progress Note: A&P Assessment and Plan (1) Neutropenic fever: Code(s): D70.9 - Neutropenia, unspecified; R50.81 - Fever presenting with conditions classified elsewhere Status: Acute (2) Pancytopenia: Code(s): D61.818 - Other pancytopenia Status: Acute (3) Essential (primary) hypertension: Code(s): I10 - Essential (primary) hypertension Status: Acute (4) CAD in [place] artery: Code(s): I25.10 - Atherosclerotic heart disease of [place] coronary artery without angina pectoris Status: Acute (5) Atrial fibrillation: Qualifiers: Atrial fibrillation type: longstanding persistent Qualified Code(s): I48.11 - Longstanding persistent atrial fibrillation Code(s): I48.91 - Unspecified atrial fibrillation Status: Acute Assessment and Plan: Delete (6) BPH (benign prostatic hyperplasia): Qualifiers: Lower urinary tract symptom presence: unspecified whether lower urinary tract symptoms present Qualified Code(s): N40.0 - Benign prostatic hyperplasia without lower urinary tract symptoms Code(s): N40.0 - Benign prostatic hyperplasia without lower urinary tract symptoms Status: Acute (7) Hyperlipidemia: Code(s): E78.5 - Hyperlipidemia, unspecified Status: Acute Assessment and Plan: Continue statin Plan This is a 79-year-old male who presents to the ER with weakness generalized. Labs showed pancytopenia with WBC 1.3 hemoglobin 11.[address] abdomen pelvis with borderline pathology excise paratracheal lymph nodes but no bulky lymphadenopathy or masses seen in the chest abdomen pelvis. Oncology has been consulted. 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 Lower extremity edema due to venous insufficiency Osteoarthritis Iron deficiency anemia Subjective Date/time seen: 02/02/25 09:11 Interval history: Complains of fatigue and chills. No abdominal pain nausea vomiting no chest pain or shortness of breath. Mild dry cough. Review of Systems Review of Systems: All systems reviewed & are unremarkable except as noted in HPI and below Exam Narrative: General: Ill-appearing, no respiratory distress HEENT: normocephalic, atraumatic. Mucous membranes moist. Neck supple without JVD, lymphadenopathy, or bruit. Respiratory: clear bilaterally. No rales/rhonic/wheezes. Cardiovascular: Regular rate and rhythm, normal S1-S2. No murmurs, rubs, or clicks. Abdomen: Soft, round, no pulsatile masses, nondistended and nontender. No rebound, no guarding. Extremities: No cyanosis, clubbing, or edema present. Pulses are palpable 2/2. Active ROM to all four extremities. Neuro: Alert and orientated x 4. PERRLA. Cranial nerves 2-12 intact without focal deficit. Skin: Warm, dry, and intact, without rash, erythema, or lesion. Psych: pleasant, cooperative, normal speech, normal affect, no hallucinations, no dysarthia Objective Data Vital Signs Vital Signs: Vital Signs - 24 hr 02/01/25 11:30 02/01/25 12:37 02/01/25 14:28 Temperature 97.6 F Pulse Rate 88 72 Respiratory Rate 20 18 Blood Pressure 134/66 145/66 H Pulse Oximetry 99 99 100 Oxygen Delivery Room Air Room Air 02/01/25 15:02 02/01/25 15:51 02/01/25 16:00 Temperature 97.5 F L 98.5 F Pulse Rate 64 69 69 Respiratory Rate 18 20 Blood Pressure 135/66 157/69 H Pulse Oximetry 99 100 Oxygen Delivery 02/01/25 18:00 02/01/25 20:00 02/01/25 20:00 Temperature 98.2 F Pulse Rate 69 89 Respiratory Rate 20 Blood Pressure 145/85 H Pulse Oximetry 98 Oxygen Delivery Room Air 02/01/25 20:00 02/01/25 21:47 02/01/25 22:00 Temperature Pulse Rate 87 79 Respiratory Rate Blood Pressure Pulse Oximetry 96 Oxygen Delivery Room Air 02/01/25 23:03 02/01/25 23:08 02/02/25 00:00 Temperature 98 F Pulse Rate 84 93 Respiratory Rate 18 Blood Pressure 139/56 L Pulse Oximetry 92 Oxygen Delivery Room Air 02/02/25 02:00 02/02/25 03:31 02/02/25 04:00 Temperature 98.0 F Pulse Rate 71 80 Respiratory Rate 18 Blood Pressure 132/59 L Pulse Oximetry 96 Oxygen Delivery Room Air 02/02/25 04:00 02/02/25 06:00 02/02/25 08:00 Temperature 97.6 F Pulse Rate 74 78 74 Respiratory Rate 12 Blood Pressure 142/62 H Pulse Oximetry 95 Oxygen Delivery Intake/Output Intake/Output: Intake & Output 01/30/25 01/31/25 02/01/25 02/02/25 23:59 23:59 23:59 23:59 Intake Total 2915 700 Output Total 1250 350 Balance 1665 350 Meds/Results Medications: Active Medications Generic Name Dose Route Start Last Admin Trade Name Freq PRN Reason Stop Dose Admin Acetaminophen 650 mg 02/01/25 14:11 02/01/25 20:56 Acetaminophen 325 Mg Tablet PO 650 mg Q4H PRN Administration Mild Pain (1-3) or Fever Atorvastatin Calcium 20 mg 02/01/25 21:00 02/01/25 20:19 Atorvastatin 20 Mg Tablet PO 20 mg QHS ANGELITO Administration Docusate Sodium 100 mg 02/01/25 14:11 Docusate Sodium 100 Mg Capsule PO BID PRN Constipation Ferrous Sulfate 325 mg 02/02/25 09:00 02/02/25 08:57 Ferrous Sulfate 325 Mg Tablet BY MOUTH 325 mg DAILY ANGELITO Administration Fluticasone Propionate 2 spray 02/01/25 20:02 Fluticasone Propionate 0.05% Na Spr 16 Gm Btl (*Bkc) NASAL QHS PRN ALLERGIES Piperacillin Sod/Tazobactam 50 mls @ 100 mls/hr 02/01/25 20:00 02/02/25 08:56 Sod 3.375 gm/ Sodium Chloride IVPB 100 mls/hr Q6H ANGELITO Administration Vancomycin HCl 1,500 mg in 500 mls @ 250 mls/hr 02/02/25 09:00 Vancomycin 1,500 Mg/Ns 500 Ml IVPB Q18H ANGELITO Sodium Chloride 1,000 mls @ 75 mls/hr 02/01/25 20:40 02/01/25 20:56 Normal Saline Iv IV CONT 75 mls/hr .[id number] ANGELITO Administration Loratadine 10 mg 02/01/25 20:02 Loratadine 10 Mg Tablet PO DAILY PRN Allergic Symptoms Losartan Potassium 50 mg 02/02/25 09:00 02/02/25 08:57 Losartan Potassium 50 Mg Tablet PO 50 mg DAILY ANGELITO Administration Mirabegron 50 mg 02/02/25 09:00 02/02/25 08:57 Mirabegron 50 Mg Er Tablet PO 50 mg DAILY ANGELITO Administration Rivaroxaban 20 mg 02/02/25 09:00 Rivaroxaban 20 Mg Tablet PO DAILY [facility] Tamsulosin HCl 0.4 mg 02/02/25 09:00 02/02/25 08:57 Tamsulosin Hcl 0.4 Mg Capsule PO 0.4 mg DAILY ANGELITO Administration Radiology Results: ITS Impressions Chest X-Ray 02/01/25 12:56 IMPRESSION: 1. No acute cardiopulmonary findings. Labs Labs: Laboratory Results - last 24 hr 02/01/25 02/01/25 02/01/25 11:39 12:31 14:11 WBC 1.2 L* RBC 3.28 L Hgb 11.1 L Hct 32.5 L MCV 99.1 MCH 33.8 MCHC 34.2 RDW 14.5 Plt Count 76 L MPV 10.9 H Immature Gran % (Auto) 1.7 H Neut % (Auto) 17.5 L Lymph % (Auto) 43.3 [place] % (Auto) 37.5 H Eos % (Auto) 0.0 Baso % (Auto) 0.0 L Lymph # (Auto) 0.52 L [place] # (Auto) 0.5 Eos # (Auto) 0.0 Baso # (Auto) 0.0 Abs Immat Gran (auto) 0.02 Absolute Neuts (auto) 0.2 L* Absolute Nucleated RBC 0.000 Band Neutrophils % Nucleated RBC % 0.0 Atypical Lymphocytes Platelet Estimate Large Platelets % Immature Plt Fraction 5.3 Anisocytosis Microcytosis Jadyn Cells Schistocytes Hematology Comments Sodium 125 L Potassium 4.1 Chloride 94 L Carbon Dioxide 21 L Anion Gap 10 BUN 17 Creatinine 0.84 Estim Creat Clear Calc 66 Estimated GFR > 60 Glucose 110 Lactic Acid Calcium 8.8 Iron TIBC % Saturation Lactate Dehydrogenase Vitamin B12 Folate RBC Folate Hemolysate RBC Folate Nasal MRSA (PCR) Not detected Influenza A (RT-PCR) Negative Influenza B (RT-PCR) Negative SARS-CoV-2 RNA (RT-PCR) Negative RODRIGO, IgG Interpret Neg RODRIGO, Poly Interpret Negative RODRIGO, Complement Interp Not Performed Indirect Antiglob Test Negative 02/01/25 02/01/25 02/01/25 15:26 15:26 15:26 WBC RBC Hgb Hct Cancelled MCV MCH MCHC RDW Plt Count MPV Immature Gran % (Auto) Neut % (Auto) Lymph % (Auto) [place] % (Auto) Eos % (Auto) Baso % (Auto) Lymph # (Auto) [place] # (Auto) Eos # (Auto) Baso # (Auto) Abs Immat Gran (auto) Absolute Neuts (auto) Absolute Nucleated RBC Band Neutrophils % Nucleated RBC % Atypical Lymphocytes Platelet Estimate Large Platelets % Immature Plt Fraction Anisocytosis Microcytosis [place] Cells Schistocytes Hematology Comments Cancelled Sodium Potassium Chloride Carbon Dioxide Anion Gap BUN Creatinine Estim Creat Clear Calc Estimated GFR Glucose Lactic Acid Calcium Iron 50 TIBC 254 L % Saturation 20 Lactate Dehydrogenase 220 Vitamin B12 > 1000.0 H Cancelled Folate > 20.0 H Cancelled RBC Folate Hemolysate Cancelled RBC Folate Cancelled Nasal MRSA (PCR) Influenza A (RT-PCR) Influenza B (RT-PCR) SARS-CoV-2 RNA (RT-PCR) RODRIGO, IgG Interpret RODRIGO, Poly Interpret RODRIGO, Complement Interp Indirect Antiglob Test 02/01/25 02/01/25 02/02/25 20:59 23:46 04:25 WBC 1.2 L* RBC 3.10 L Hgb 10.6 L Hct 31.6 L MCV 101.9 H MCH 34.2 H MCHC 33.5 RDW 14.7 H Plt Count 75 L MPV 11.7 H Immature Gran % (Auto) 0.8 H Neut % (Auto) 23.5 L Lymph % (Auto) 35.0 [place] % (Auto) 40.7 H Eos % (Auto) 0.0 Baso % (Auto) 0.0 L Lymph # (Auto) 0.43 L [place] # (Auto) 0.5 Eos # (Auto) 0.0 Baso # (Auto) 0.0 Abs Immat Gran (auto) 0.01 Absolute Neuts (auto) 0.3 L* Absolute Nucleated RBC 0.000 Band Neutrophils % Not Reportable Nucleated RBC % 0.0 Atypical Lymphocytes Present Platelet Estimate Decreased Large Platelets Present % Immature Plt Fraction 6.2 Anisocytosis 1+ Microcytosis 1+ [place] Cells 1+ Schistocytes Rare Hematology Comments Sodium 131 L 131 L Potassium 4.1 4.2 Chloride 99 101 Carbon Dioxide 21 L 22 Anion Gap 11 8 BUN 16 14 Creatinine 0.77 0.76 Estim Creat Clear Calc 72 73 Estimated GFR > 60 > 60 Glucose 135 H 117 H Lactic Acid 3.0 H 0.9 Calcium 8.7 8.4 Iron TIBC % Saturation Lactate Dehydrogenase Vitamin B12 Folate RBC Folate Hemolysate RBC Folate Nasal MRSA (PCR) Influenza A (RT-PCR) Influenza B (RT-PCR) SARS-CoV-2 RNA (RT-PCR) RODRIGO, IgG Interpret RODRIGO, Poly Interpret RODRIGO, Complement Interp Indirect Antiglob Test
[2025-02-02] MEDS: VANCOMYCIN 1,500 MG/NS 500 ML 1,500 MG/500 ML BAG 250 MG IVPB (10:07)
--- NOTE | 2025-02-02 12:45 | P.PNONC_ITS ---
Progress Note: A&P Assessment and Plan (1) Neutropenic fever: Code(s): D70.9 - Neutropenia, unspecified; R50.81 - Fever presenting with conditions classified elsewhere Status: Acute Assessment and Plan: Afebrile. On prophylactic Zosyn and Vancomycin due to severe neutropenia (2) Pancytopenia: Code(s): D61.818 - Other pancytopenia Status: Acute Assessment and Plan: BM asp/bx scheduled for tomorrow (3) Essential (primary) hypertension: Code(s): I10 - Essential (primary) hypertension Status: Acute Assessment and Plan: Continue Cozaar (4) CAD in [place] artery: Code(s): I25.10 - Atherosclerotic heart disease of [place] coronary artery without angina pectoris Status: Acute Assessment and Plan: Continue statin, continue Cozaar, continue Xarelto (5) Atrial fibrillation: Qualifiers: Atrial fibrillation type: longstanding persistent Qualified Code(s): I48.11 - Longstanding persistent atrial fibrillation Code(s): I48.91 - Unspecified atrial fibrillation Status: Acute Assessment and Plan: Continue Xarelto. Drug will need to be held 24-48 hours prior to BM bx; ie. to be held today and restarted 02/04/25. (6) BPH (benign prostatic hyperplasia): Qualifiers: Lower urinary tract symptom presence: unspecified whether lower urinary tract symptoms present Qualified Code(s): N40.0 - Benign prostatic hyperplasia without lower urinary tract symptoms Code(s): N40.0 - Benign prostatic hyperplasia without lower urinary tract symptoms Status: Acute Assessment and Plan: Continue Flomax (7) Hyperlipidemia: Code(s): E78.5 - Hyperlipidemia, unspecified Status: Acute Assessment and Plan: Continue statin Plan As above Subjective Date/time seen: 02/02/25 12:45 Interval history: 02/01/25: Augie Bunn is a 79 year old male known to Dr. Lozano with a history of iron deficiency and who presented to the ER today with weakeness and nocturnal diaphoresis. Labs show pancytopenia which is a marked difference to the labs from 09/2024 when last seen by Dr. Lozano. He had an appt to be seen by Hematology next week. Labs: (10/01/24): WBC 4.5, Hgb 14.4, Hct 43.4, MCV 91.4, Plt 150 (01/27/25): WBC 1.9, ANC 0.2, lymph 0.74, mono 1.0, Hgb 11.9, Hct 25.5, MCV 102.0, Plt 71. Influenza A/B negative. COVID negative. (01/28/25): WBC 1.3, Hgb 11.5, Hct 34.1, MCV 100.9, Plt 60, ferritin 593 (02/01/25); WBC 1.2, ANC 0.2, lymph 0.52, mono 0.5, Hgb 11.1, Hct 32.5,MCV 99.1, Plt 76 CT CAP (01/28/25): 1. Borderline pathologic size paratracheal lymph nodes but no bulky lymphadenopathy or masses seen within the chest abdomen or pelvis. 2. No focal acute process. Peripheral smear evaluated by me on 02/01/25- markedly decreased neutrophils with scattered toxic granulations. No hypersegmented neutrophils. No blasts. Occasional reactive lymphocyte. No schistocytes. Some rouleaux formation. No plt clumping. Occasional large platelets. NO evidence of acute leukemia via this slide. Will await lab and BM results. 02/02/25: Patient feeling generally ill which is unchanged. No fever. Fair appetite. He vomited alittle this morning. IMPRESSION: Pancytopenia DD: BM infiltration/replacement with leukemia, MDS, MM, or cancer BM failure seen with drugs, LDL leukemia, autoimmune disorders as well as nutritional deficiencies. Destruction/sequestration with infections, etc. ORDERS: - NO growth factor - Prophylactic antibiotic - Labs ordered yesterday still pendng: Vitamin B12, folate, LDH, beta-2 microglobulin, retic, SPEP with reflex testing, peripheral smear, flow cytometry for L/L panel - BM aspiration and biopsy with flow cytometry - scheduled for tomorrow. Review of Systems Constitutional Comments: Generally feels ill Respiratory Comments: Cough, unchanged. Gastrointestinal Comments: some vomiting this morning. Exam Eyes: Other: Anicteric sclerae Resp: Other: Bilateral air entry. No wheezing Cardio: Other: RRR GI: Other: Abdomen nontender Neuro: Other: Alert and oriented Extrem: Other: No edema Psych: Other: Normal affect Objective Data Vital Signs Vital Signs: Vital Signs - 24 hr 02/01/25 14:28 02/01/25 15:02 02/01/25 15:51 Temperature 36.4 C L 36.9 C Pulse Rate 72 64 69 Respiratory Rate 18 18 20 Blood Pressure 145/66 H 135/66 157/69 H Pulse Oximetry 100 99 100 Oxygen Delivery 02/01/25 16:00 02/01/25 18:00 02/01/25 20:00 Temperature 36.8 C Pulse Rate 69 69 89 Respiratory Rate 20 Blood Pressure 145/85 H Pulse Oximetry 98 Oxygen Delivery 02/01/25 20:00 02/01/25 20:00 02/01/25 21:47 Temperature Pulse Rate 87 Respiratory Rate Blood Pressure Pulse Oximetry 96 Oxygen Delivery Room Air Room Air 02/01/25 22:00 02/01/25 23:03 02/01/25 23:08 Temperature 36.6 C Pulse Rate 79 84 Respiratory Rate 18 Blood Pressure 139/56 L Pulse Oximetry 92 Oxygen Delivery Room Air 02/02/25 00:00 02/02/25 02:00 02/02/25 03:31 Temperature 36.7 C Pulse Rate 93 71 80 Respiratory Rate 18 Blood Pressure 132/59 L Pulse Oximetry 96 Oxygen Delivery 02/02/25 04:00 02/02/25 04:00 02/02/25 06:00 Temperature Pulse Rate 74 78 Respiratory Rate Blood Pressure Pulse Oximetry Oxygen Delivery Room Air 02/02/25 08:00 02/02/25 08:00 02/02/25 08:00 Temperature 36.4 C Pulse Rate 74 79 Respiratory Rate 12 Blood Pressure 142/62 H Pulse Oximetry 95 Oxygen Delivery Room Air 02/02/25 10:00 02/02/25 11:52 02/02/25 12:00 Temperature 36.8 C Pulse Rate 70 76 Respiratory Rate 20 Blood Pressure 137/71 Pulse Oximetry 95 Oxygen Delivery Room Air 02/02/25 12:00 Temperature Pulse Rate 72 Respiratory Rate Blood Pressure Pulse Oximetry Oxygen Delivery Intake/Output Intake/Output: Intake & Output 01/30/25 01/31/25 02/01/25 02/02/25 23:59 23:59 23:59 23:59 Intake Total 2915 870 Output Total 1250 350 Balance 1665 520 Meds/Results Medications: Active Medications Generic Name Dose Route Start Last Admin Trade Name Freq PRN Reason Stop Dose Admin Acetaminophen 650 mg 02/01/25 14:11 02/01/25 20:56 Acetaminophen 325 Mg Tablet PO 650 mg Q4H PRN Administration Mild Pain (1-3) or Fever Atorvastatin Calcium 20 mg 02/01/25 21:00 02/01/25 20:19 Atorvastatin 20 Mg Tablet PO 20 mg QHS ANGELITO Administration Docusate Sodium 100 mg 02/01/25 14:11 Docusate Sodium 100 Mg Capsule PO BID PRN Constipation Ferrous Sulfate 325 mg 02/02/25 09:00 02/02/25 08:57 Ferrous Sulfate 325 Mg Tablet BY MOUTH 325 mg DAILY ANGELITO Administration Fluticasone Propionate 2 spray 02/01/25 20:02 Fluticasone Propionate 0.05% Na Spr 16 Gm Btl (*Bkc) NASAL QHS PRN ALLERGIES Piperacillin Sod/Tazobactam 50 mls @ 100 mls/hr 02/01/25 20:00 02/02/25 10:10 Sod 3.375 gm/ Sodium Chloride IVPB Infused Q6H ANGELITO Infusion Vancomycin HCl 1,500 mg in 500 mls @ 250 mls/hr 02/02/25 09:00 02/02/25 10:07 Vancomycin 1,500 Mg/Ns 500 Ml IVPB 250 mls/hr Q18H ANGELITO Administration Sodium Chloride 1,000 mls @ 75 mls/hr 02/01/25 20:40 02/01/25 20:56 Normal Saline Iv IV CONT 75 mls/hr .[id number] ANGELITO Administration Loratadine 10 mg 02/01/25 20:02 Loratadine 10 Mg Tablet PO DAILY PRN Allergic Symptoms Losartan Potassium 50 mg 02/02/25 09:00 02/02/25 08:57 Losartan Potassium 50 Mg Tablet PO 50 mg DAILY ANGELITO Administration Mirabegron 50 mg 02/02/25 09:00 02/02/25 08:57 Mirabegron 50 Mg Er Tablet PO 50 mg DAILY ANGELITO Administration Neomycin/Polymyxin/Bacitracin 1 applic 02/02/25 11:37 Neomycin/Polymyxin/Bacitracin Ointment 15 Gm Tube TOPICAL PRN PRN with dressing changes Rivaroxaban 20 mg 02/02/25 09:00 Rivaroxaban 20 Mg Tablet PO On Hold: 02/02/25 09:00 DAILY ANGELITO Resume: 02/04/25 17:00 Comment: hold of bone marrow biopsy Tamsulosin HCl 0.4 mg 02/02/25 09:00 02/02/25 08:57 Tamsulosin Hcl 0.4 Mg Capsule PO 0.4 mg DAILY ANGELITO Administration Radiology Results: ITS Impressions Chest X-Ray 02/01/25 12:56 IMPRESSION: 1. No acute cardiopulmonary findings. Labs Labs: Laboratory Results - last 24 hr 02/01/25 02/01/25 02/01/25 11:39 12:31 14:11 WBC 1.2 L* RBC 3.28 L Hgb 11.1 L Hct 32.5 L MCV 99.1 MCH 33.8 MCHC 34.2 RDW 14.5 Plt Count 76 L MPV 10.9 H Immature Gran % (Auto) 1.7 H Neut % (Auto) 17.5 L Lymph % (Auto) 43.3 [place] % (Auto) 37.5 H Eos % (Auto) 0.0 Baso % (Auto) 0.0 L Lymph # (Auto) 0.52 L [place] # (Auto) 0.5 Eos # (Auto) 0.0 Baso # (Auto) 0.0 Abs Immat Gran (auto) 0.02 Absolute Neuts (auto) 0.2 L* Absolute Nucleated RBC 0.000 Band Neutrophils % Nucleated RBC % 0.0 Atypical Lymphocytes Platelet Estimate Large Platelets % Immature Plt Fraction 5.3 Anisocytosis Microcytosis Jadyn Cells Schistocytes Hematology Comments Sodium 125 L Potassium 4.1 Chloride 94 L Carbon Dioxide 21 L Anion Gap 10 BUN 17 Creatinine 0.84 Estim Creat Clear Calc 66 Estimated GFR > 60 Glucose 110 Lactic Acid Calcium 8.8 Iron TIBC % Saturation Lactate Dehydrogenase Vitamin B12 Folate RBC Folate Hemolysate RBC Folate Nasal MRSA (PCR) Not detected Influenza A (RT-PCR) Negative Influenza B (RT-PCR) Negative SARS-CoV-2 RNA (RT-PCR) Negative RODRIGO, IgG Interpret Neg RODRIGO, Poly Interpret Negative RODRIGO, Complement Interp Not Performed Indirect Antiglob Test Negative 02/01/25 02/01/25 02/01/25 15:26 15:26 15:26 WBC RBC Hgb Hct Cancelled MCV MCH MCHC RDW Plt Count MPV Immature Gran % (Auto) Neut % (Auto) Lymph % (Auto) [place] % (Auto) Eos % (Auto) Baso % (Auto) Lymph # (Auto) [place] # (Auto) Eos # (Auto) Baso # (Auto) Abs Immat Gran (auto) Absolute Neuts (auto) Absolute Nucleated RBC Band Neutrophils % Nucleated RBC % Atypical Lymphocytes Platelet Estimate Large Platelets % Immature Plt Fraction Anisocytosis Microcytosis [place] Cells Schistocytes Hematology Comments Cancelled Sodium Potassium Chloride Carbon Dioxide Anion Gap BUN Creatinine Estim Creat Clear Calc Estimated GFR Glucose Lactic Acid Calcium Iron 50 TIBC 254 L % Saturation 20 Lactate Dehydrogenase 220 Vitamin B12 > 1000.0 H Cancelled Folate > 20.0 H Cancelled RBC Folate Hemolysate Cancelled RBC Folate Cancelled Nasal MRSA (PCR) Influenza A (RT-PCR) Influenza B (RT-PCR) SARS-CoV-2 RNA (RT-PCR) RODRIGO, IgG Interpret RODRIGO, Poly Interpret RODRIGO, Complement Interp Indirect Antiglob Test 02/01/25 02/01/25 02/02/25 20:59 23:46 04:25 WBC 1.2 L* RBC 3.10 L Hgb 10.6 L Hct 31.6 L MCV 101.9 H MCH 34.2 H MCHC 33.5 RDW 14.7 H Plt Count 75 L MPV 11.7 H Immature Gran % (Auto) 0.8 H Neut % (Auto) 23.5 L Lymph % (Auto) 35.0 [place] % (Auto) 40.7 H Eos % (Auto) 0.0 Baso % (Auto) 0.0 L Lymph # (Auto) 0.43 L [place] # (Auto) 0.5 Eos # (Auto) 0.0 Baso # (Auto) 0.0 Abs Immat Gran (auto) 0.01 Absolute Neuts (auto) 0.3 L* Absolute Nucleated RBC 0.000 Band Neutrophils % Not Reportable Nucleated RBC % 0.0 Atypical Lymphocytes Present Platelet Estimate Decreased Large Platelets Present % Immature Plt Fraction 6.2 Anisocytosis 1+ Microcytosis 1+ [place] Cells 1+ Schistocytes Rare Hematology Comments Sodium 131 L 131 L Potassium 4.1 4.2 Chloride 99 101 Carbon Dioxide 21 L 22 Anion Gap 11 8 BUN 16 14 Creatinine 0.77 0.76 Estim Creat Clear Calc 72 73 Estimated GFR > 60 > 60 Glucose 135 H 117 H Lactic Acid 3.0 H 0.9 Calcium 8.7 8.4 Iron TIBC % Saturation Lactate Dehydrogenase Vitamin B12 Folate RBC Folate Hemolysate RBC Folate Nasal MRSA (PCR) Influenza A (RT-PCR) Influenza B (RT-PCR) SARS-CoV-2 RNA (RT-PCR) RODRIGO, IgG Interpret RODRIGO, Poly Interpret RODRIGO, Complement Interp Indirect Antiglob Test
[2025-02-02] MEDS: ACETAMINOPHEN 325 MG TABLET 650 MG PO ×2 (18:11→21:47)
[2025-02-02] MEDS: ATORVASTATIN 20 MG TABLET PO (20:49)
[2025-02-03] VITALS (12 sets, daily range): BP systolic 116–154; BP diastolic 56–77; PULSE 54–96; RESP 16–20; TEMP 36.4–37; O2SAT 96–100
[2025-02-03 02:21] LABS: Hematocrit 28.2 % (42.0-52.0); Hemoglobin 9.7 g/dL (14.0-18.0); Immature Granulocyte Percent A 0.8 % (0-0.5); Immature Platelet Fraction Pct 6.3 % (0.9-11.2); Lymphocytes Absolute Auto 0.47 K/mm3 (0.9-3.2); Mean Corpuscular HGB Conc 34.4 g/dl (32-36); Mean Corpuscular Hemoglobin 34.8 pg (26-34); Mean Corpuscular Volume 101.1 fl (80-100); Nucleated Red Blood Cells Absolute Auto 0.000 K/mm3 (0.0-0.012); Nucleated Red Blood Cells Perc 0.0 % (0.0-0.2); Platelet Count Result 70 k/mm3 (150-375); Red Blood Count 2.79 M/mm3 (4.6-6.20)
[2025-02-03 02:49] LABS: White Blood Count 1.3 K/mm3 (4.5-10.0)
[2025-02-03 02:51] LABS: Alanine Aminotransferase 26 U/L (6-50); Albumin Level 3.6 g/dL (3.5-5.1); Alkaline Phosphatase 147 U/L (38-126); Anion Gap 8 mmol/L (4-12); Aspartate Amino Transferase 47 U/L (17-59); Bilirubin,Total 1.4 mg/dL (0.2-1.3); Blood Urea Nitrogen 12 mg/dL (9-20); Calcium 8.3 mg/dL (8.4-10.2); Carbon Dioxide 21 mmol/L (22-30); Chloride 100 mmol/L (98-107); Estimated CRCL calculation 73 ml/min; Estimated Glomerular Filt Rate > 60; Glucose 111 mg/dL (65-110); Magnesium 2.3 mg/dL (1.6-2.3); Potassium 3.8 mmol/L (3.4-5.0); Sodium 129 mmol/L (137-145); Total Protein 7.0 g/dL (6.3-8.2)
[2025-02-03] MEDS: PIPERACILLIN/TAZOBACTAM SOD 3.375 GM in SODIUM CHLORIDE 0.9% IV 50 ML 100 ML IVPB ×4 (02:54→20:26)
[2025-02-03 03:20] LABS: Anisocytosis 1+; Macrocytosis Occasional (NORMAL); Smudge Cells PRESENT
[2025-02-03 03:21] LABS: Ovalocytes Occasional
[2025-02-03 03:22] LABS: Schistocytes Rare
[2025-02-03] MEDS: VANCOMYCIN 1,750 MG/NS 500 ML 1,750 MG/500 ML BAG 250 MG IVPB ×2 (03:49→15:52)
[2025-02-03] MEDS: ACETAMINOPHEN 325 MG TABLET 650 MG PO (03:54)
[2025-02-03] MEDS: LOSARTAN POTASSIUM 50 MG TABLET PO (09:17)
[2025-02-03] MEDS: FERROUS SULFATE 325 MG TABLET BY MOUTH (09:17)
[2025-02-03] MEDS: MIRABEGRON 50 MG ER TABLET PO (09:18)
[2025-02-03] MEDS: TAMSULOSIN HCL 0.4 MG CAPSULE PO (09:18)
[2025-02-03 09:36] LABS: INR 1.5; Prothrombin Time 18.1 Seconds (11.1-14.7)
[2025-02-03 09:37] LABS: Partial Thromboplastin Time 36.1 Seconds (22.3-36.8)
--- NOTE | 2025-02-03 16:39 | P.PNIM_ITS ---
Progress Note: A&P Assessment and Plan (1) Neutropenic fever: Code(s): D70.9 - Neutropenia, unspecified; R50.81 - Fever presenting with conditions classified elsewhere Status: Acute (2) Pancytopenia: Code(s): D61.818 - Other pancytopenia Status: Acute (3) Essential (primary) hypertension: Code(s): I10 - Essential (primary) hypertension Status: Acute (4) CAD in [place] artery: Code(s): I25.10 - Atherosclerotic heart disease of [place] coronary artery without angina pectoris Status: Acute (5) Atrial fibrillation: Qualifiers: Atrial fibrillation type: longstanding persistent Qualified Code(s): I48.11 - Longstanding persistent atrial fibrillation Code(s): I48.91 - Unspecified atrial fibrillation Status: Acute Assessment and Plan: Delete (6) BPH (benign prostatic hyperplasia): Qualifiers: Lower urinary tract symptom presence: unspecified whether lower urinary tract symptoms present Qualified Code(s): N40.0 - Benign prostatic hyperplasia without lower urinary tract symptoms Code(s): N40.0 - Benign prostatic hyperplasia without lower urinary tract symptoms Status: Acute (7) Hyperlipidemia: Code(s): E78.5 - Hyperlipidemia, unspecified Status: Acute Assessment and Plan: Continue statin Plan This is a 79-year-old male who presents to the ER with weakness generalized. Labs showed pancytopenia with WBC 1.3 hemoglobin 11.[address] abdomen pelvis with borderline pathology excise paratracheal lymph nodes but no bulky lymphadenopathy or masses seen in the chest abdomen pelvis. Oncology has been consulted. 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 Lower extremity edema due to venous insufficiency Osteoarthritis Iron deficiency anemia Subjective Date/time seen: 02/03/25 16:39 Interval history: No new complaints. No more chills. Labs reviewed. Plan for bone marrow biopsy postponed till tomorrow due to scheduling Review of Systems Review of Systems: All systems reviewed & are unremarkable except as noted in HPI and below Exam Narrative: General: Well-appearing, no respiratory distress HEENT: normocephalic, atraumatic. Mucous membranes moist. Neck supple without JVD, lymphadenopathy, or bruit. Respiratory: clear bilaterally. No rales/rhonic/wheezes. Cardiovascular: Regular rate and rhythm, normal S1-S2. No murmurs, rubs, or clicks. Abdomen: Soft, round, no pulsatile masses, nondistended and nontender. No rebound, no guarding. Extremities: No cyanosis, clubbing, or edema present. Pulses are palpable 2/2. Active ROM to all four extremities. Neuro: Alert and orientated x 4. PERRLA. Cranial nerves 2-12 intact without focal deficit. Skin: Warm, dry, and intact, without rash, erythema, or lesion. Psych: pleasant, cooperative, normal speech, normal affect, no hallucinations, no dysarthia Objective Data Vital Signs Vital Signs: Vital Signs - 24 hr 02/02/25 18:00 02/02/25 19:56 02/02/25 20:00 Temperature 97.9 F Pulse Rate 75 78 Respiratory Rate 20 Blood Pressure 131/58 L Pulse Oximetry 98 Oxygen Delivery Room Air 02/02/25 20:00 02/02/25 22:00 02/03/25 00:00 Temperature Pulse Rate 74 73 73 Respiratory Rate Blood Pressure Pulse Oximetry Oxygen Delivery 02/03/25 00:00 02/03/25 00:00 02/03/25 02:00 Temperature 97.7 F Pulse Rate 54 L 74 Respiratory Rate 16 Blood Pressure 124/62 Pulse Oximetry 96 Oxygen Delivery Room Air 02/03/25 04:00 02/03/25 04:00 02/03/25 04:00 Temperature 97.5 F L Pulse Rate 74 79 Respiratory Rate 18 Blood Pressure 139/62 Pulse Oximetry 100 Oxygen Delivery Room Air 02/03/25 06:00 02/03/25 07:59 02/03/25 08:00 Temperature 98.1 F Pulse Rate 71 82 82 Respiratory Rate 20 20 Blood Pressure 116/56 L Pulse Oximetry 100 100 Oxygen Delivery Room Air 02/03/25 08:00 02/03/25 10:00 02/03/25 11:56 Temperature 98.6 F Pulse Rate 82 74 77 Respiratory Rate 20 Blood Pressure 144/69 H Pulse Oximetry 98 Oxygen Delivery 02/03/25 12:00 02/03/25 12:00 02/03/25 14:00 Temperature Pulse Rate 77 77 93 Respiratory Rate 20 Blood Pressure Pulse Oximetry 98 Oxygen Delivery Room Air 02/03/25 16:00 02/03/25 16:00 Temperature Pulse Rate 96 96 Respiratory Rate 20 Blood Pressure Pulse Oximetry Oxygen Delivery Room Air Intake/Output Intake/Output: Intake & Output 01/31/25 02/01/25 02/02/25 02/03/25 23:59 23:59 23:59 23:59 Intake Total 2915 1770 1325 Output Total 1250 775 625 Balance 1665 995 700 Meds/Results Medications: Active Medications Generic Name Dose Route Start Last Admin Trade Name Freq PRN Reason Stop Dose Admin Acetaminophen 650 mg 02/01/25 14:11 02/03/25 03:54 Acetaminophen 325 Mg Tablet PO 650 mg Q4H PRN Administration Mild Pain (1-3) or Fever Atorvastatin Calcium 20 mg 02/01/25 21:00 02/02/25 20:49 Atorvastatin 20 Mg Tablet PO 20 mg QHS ANGELITO Administration Docusate Sodium 100 mg 02/01/25 14:11 Docusate Sodium 100 Mg Capsule PO BID PRN Constipation Ferrous Sulfate 325 mg 02/02/25 09:00 02/03/25 09:17 Ferrous Sulfate 325 Mg Tablet BY MOUTH 325 mg DAILY ANGELITO Administration Fluticasone Propionate 2 spray 02/01/25 20:02 Fluticasone Propionate 0.05% Na Spr 16 Gm Btl (*Bkc) NASAL QHS PRN ALLERGIES Piperacillin Sod/Tazobactam 50 mls @ 100 mls/hr 02/01/25 20:00 02/03/25 14:29 Sod 3.375 gm/ Sodium Chloride IVPB Infused Q6H ANGELITO Infusion Vancomycin HCl 1,750 mg in 500 mls @ 250 mls/hr 02/03/25 04:00 02/03/25 15:52 Vancomycin 1,750 Mg/Ns 500 Ml IVPB 250 mls/hr Q12H ANGELITO Administration Loratadine 10 mg 02/01/25 20:02 Loratadine 10 Mg Tablet PO DAILY PRN Allergic Symptoms Losartan Potassium 50 mg 02/02/25 09:00 02/03/25 09:17 Losartan Potassium 50 Mg Tablet PO 50 mg DAILY ANGELITO Administration Mirabegron 50 mg 02/02/25 09:00 02/03/25 09:18 Mirabegron 50 Mg Er Tablet PO 50 mg DAILY ANGELITO Administration Neomycin/Polymyxin/Bacitracin 1 applic 02/02/25 11:37 Neomycin/Polymyxin/Bacitracin Ointment 15 Gm Tube TOPICAL PRN PRN with dressing changes Ondansetron HCl 4 mg 02/02/25 14:59 Ondansetron Inj 4 Mg/2 Ml Vial IV PUSH Q6H PRN Nausea And Vomiting Rivaroxaban 20 mg 02/02/25 09:00 Rivaroxaban 20 Mg Tablet PO On Hold: 02/02/25 09:00 DAILY ANGELITO Resume: 02/04/25 17:00 Comment: hold of bone marrow biopsy Tamsulosin HCl 0.4 mg 02/02/25 09:00 02/03/25 09:18 Tamsulosin Hcl 0.4 Mg Capsule PO 0.4 mg DAILY ANGELITO Administration Radiology Results: ITS Impressions Chest X-Ray 02/01/25 12:56 IMPRESSION: 1. No acute cardiopulmonary findings. Labs Labs: Laboratory Results - last 24 hr 02/01/25 02/03/25 02/03/25 15:26 02:14 09:15 WBC 1.3 L* RBC 2.79 L Hgb 9.7 L Hct 28.2 L MCV 101.1 H MCH 34.8 H MCHC 34.4 RDW 15.0 H Plt Count 70 L MPV 11.2 H Immature Gran % (Auto) 0.8 H Neut % (Auto) 19.4 L Lymph % (Auto) 36.4 [place] % (Auto) 43.4 H Eos % (Auto) 0.0 Baso % (Auto) 0.0 L Lymph # (Auto) 0.47 L [place] # (Auto) 0.6 Eos # (Auto) 0.0 Baso # (Auto) 0.0 Abs Immat Gran (auto) 0.01 Absolute Neuts (auto) 0.3 L* Absolute Nucleated RBC 0.000 Band Neutrophils % Not Reportable Nucleated RBC % 0.0 Smudge Cells Present Platelet Estimate Decreased Large Platelets Present % Immature Plt Fraction 6.3 Anisocytosis 1+ Macrocytosis Occasional Ovalocytes Occasional Schistocytes Rare Haptoglobin 237 PT 18.1 H INR 1.5 APTT 36.1 Sodium 129 L Potassium 3.8 Chloride 100 Carbon Dioxide 21 L Anion Gap 8 BUN 12 Creatinine 0.75 Estim Creat Clear Calc 73 Estimated GFR > 60 Glucose 111 H Calcium 8.3 L Magnesium 2.3 Total Bilirubin 1.4 H AST 47 ALT 26 Alkaline Phosphatase 147 H Total Protein 7.0 Albumin 3.6 Vancomycin Trough 6.7 L
--- NOTE | 2025-02-03 16:42 | WPDONCPN ---
Subjective Date/time seen: 02/03/25 16:42 Interval history: 02/01/25: Augie Bunn is a 79 year old male known to Dr. Lozano with a history of iron deficiency and who presented to the ER today with weakeness and nocturnal diaphoresis. Labs show pancytopenia which is a marked difference to the labs from 09/2024 when last seen by Dr. Lozano. He had an appt to be seen by Hematology next week. Labs: (10/01/24): WBC 4.5, Hgb 14.4, Hct 43.4, MCV 91.4, Plt 150 (01/27/25): WBC 1.9, ANC 0.2, lymph 0.74, mono 1.0, Hgb 11.9, Hct 25.5, MCV 102.0, Plt 71. Influenza A/B negative. COVID negative. (01/28/25): WBC 1.3, Hgb 11.5, Hct 34.1, MCV 100.9, Plt 60, ferritin 593 (02/01/25); WBC 1.2, ANC 0.2, lymph 0.52, mono 0.5, Hgb 11.1, Hct 32.5,MCV 99.1, Plt 76 CT CAP (01/28/25): 1. Borderline pathologic size paratracheal lymph nodes but no bulky lymphadenopathy or masses seen within the chest abdomen or pelvis. 2. No focal acute process. Peripheral smear evaluated by me on 02/01/25- markedly decreased neutrophils with scattered toxic granulations. No hypersegmented neutrophils. No blasts. Occasional reactive lymphocyte. No schistocytes. Some rouleaux formation. No plt clumping. Occasional large platelets. NO evidence of acute leukemia via this slide. Will await lab and BM results. 02/02/25: Patient feeling generally ill which is unchanged. No fever. Fair appetite. He vomited alittle this morning. 02/03/25: Patient feeling about the same although he dose report sleeping better and having no wierd dreams like he has at home. No fever or chills. No SOB. No CP. Unfortunately, was told that the patient will not be having his BM bx today despite my putting in an order over the weekend. Labs: (02/03/25): WBC 1.3, ANC 0.3, Hgb 9.7, Hct 28.2, Plt 70, BUN 12, crea 0.75, Na 129. IMPRESSION: Pancytopenia DD: BM infiltration/replacement with leukemia, MDS, MM, or cancer BM failure seen with drugs, LDL leukemia, autoimmune disorders as well as nutritional deficiencies. Destruction/sequestration with infections, etc. ORDERS: - NO growth factor - Prophylactic antibiotic - Labs ordered yesterday still pendng: Vitamin B12, folate, LDH, beta-2 microglobulin, retic, SPEP with reflex testing, peripheral smear, flow cytometry for L/L panel - BM aspiration and biopsy with flow cytometry - scheduled for today but now apparently to be done tomorrow Check PT, PTT. Objective Data Vital Signs Vital Signs: Vital Signs - 24 hr 02/02/25 18:00 02/02/25 19:56 02/02/25 20:00 Temperature 36.6 C Pulse Rate 75 78 Respiratory Rate 20 Blood Pressure 131/58 L Pulse Oximetry 98 Oxygen Delivery Room Air 02/02/25 20:00 02/02/25 22:00 02/03/25 00:00 Temperature Pulse Rate 74 73 73 Respiratory Rate Blood Pressure Pulse Oximetry Oxygen Delivery 02/03/25 00:00 02/03/25 00:00 02/03/25 02:00 Temperature 36.5 C Pulse Rate 54 L 74 Respiratory Rate 16 Blood Pressure 124/62 Pulse Oximetry 96 Oxygen Delivery Room Air 02/03/25 04:00 02/03/25 04:00 02/03/25 04:00 Temperature 36.4 C L Pulse Rate 74 79 Respiratory Rate 18 Blood Pressure 139/62 Pulse Oximetry 100 Oxygen Delivery Room Air 02/03/25 06:00 02/03/25 07:59 02/03/25 08:00 Temperature 36.7 C Pulse Rate 71 82 82 Respiratory Rate 20 20 Blood Pressure 116/56 L Pulse Oximetry 100 100 Oxygen Delivery Room Air 02/03/25 08:00 02/03/25 10:00 02/03/25 11:56 Temperature 37.0 C Pulse Rate 82 74 77 Respiratory Rate 20 Blood Pressure 144/69 H Pulse Oximetry 98 Oxygen Delivery 02/03/25 12:00 02/03/25 12:00 02/03/25 14:00 Temperature Pulse Rate 77 77 93 Respiratory Rate 20 Blood Pressure Pulse Oximetry 98 Oxygen Delivery Room Air 02/03/25 16:00 02/03/25 16:00 Temperature Pulse Rate 96 96 Respiratory Rate 20 Blood Pressure Pulse Oximetry Oxygen Delivery Room Air Intake/Output Intake/Output: Intake & Output 01/31/25 02/01/25 02/02/25 02/03/25 23:59 23:59 23:59 23:59 Intake Total 2915 1770 1325 Output Total 1250 775 625 Balance 1665 995 700 Meds/Results Medications: Active Medications Generic Name Dose Route Start Last Admin Trade Name Freq PRN Reason Stop Dose Admin Acetaminophen 650 mg 02/01/25 14:11 02/03/25 03:54 Acetaminophen 325 Mg Tablet PO 650 mg Q4H PRN Administration Mild Pain (1-3) or Fever Atorvastatin Calcium 20 mg 02/01/25 21:00 02/02/25 20:49 Atorvastatin 20 Mg Tablet PO 20 mg QHS ANGELITO Administration Docusate Sodium 100 mg 02/01/25 14:11 Docusate Sodium 100 Mg Capsule PO BID PRN Constipation Ferrous Sulfate 325 mg 02/02/25 09:00 02/03/25 09:17 Ferrous Sulfate 325 Mg Tablet BY MOUTH 325 mg DAILY ANGELITO Administration Fluticasone Propionate 2 spray 02/01/25 20:02 Fluticasone Propionate 0.05% Na Spr 16 Gm Btl (*Bkc) NASAL QHS PRN ALLERGIES Piperacillin Sod/Tazobactam 50 mls @ 100 mls/hr 02/01/25 20:00 02/03/25 14:29 Sod 3.375 gm/ Sodium Chloride IVPB Infused Q6H ANGELITO Infusion Vancomycin HCl 1,750 mg in 500 mls @ 250 mls/hr 02/03/25 04:00 02/03/25 15:52 Vancomycin 1,750 Mg/Ns 500 Ml IVPB 250 mls/hr Q12H ANGELITO Administration Loratadine 10 mg 02/01/25 20:02 Loratadine 10 Mg Tablet PO DAILY PRN Allergic Symptoms Losartan Potassium 50 mg 02/02/25 09:00 02/03/25 09:17 Losartan Potassium 50 Mg Tablet PO 50 mg DAILY ANGELITO Administration Mirabegron 50 mg 02/02/25 09:00 02/03/25 09:18 Mirabegron 50 Mg Er Tablet PO 50 mg DAILY ANGELITO Administration Neomycin/Polymyxin/Bacitracin 1 applic 02/02/25 11:37 Neomycin/Polymyxin/Bacitracin Ointment 15 Gm Tube TOPICAL PRN PRN with dressing changes Ondansetron HCl 4 mg 02/02/25 14:59 Ondansetron Inj 4 Mg/2 Ml Vial IV PUSH Q6H PRN Nausea And Vomiting Rivaroxaban 20 mg 02/02/25 09:00 Rivaroxaban 20 Mg Tablet PO On Hold: 02/02/25 09:00 DAILY ANGELITO Resume: 02/04/25 17:00 Comment: hold of bone marrow biopsy Tamsulosin HCl 0.4 mg 02/02/25 09:00 02/03/25 09:18 Tamsulosin Hcl 0.4 Mg Capsule PO 0.4 mg DAILY ANGELITO Administration Radiology Results: ITS Impressions Chest X-Ray 02/01/25 12:56 IMPRESSION: 1. No acute cardiopulmonary findings. Labs Labs: Laboratory Results - last 24 hr 02/01/25 02/03/25 02/03/25 15:26 02:14 09:15 WBC 1.3 L* RBC 2.79 L Hgb 9.7 L Hct 28.2 L MCV 101.1 H MCH 34.8 H MCHC 34.4 RDW 15.0 H Plt Count 70 L MPV 11.2 H Immature Gran % (Auto) 0.8 H Neut % (Auto) 19.4 L Lymph % (Auto) 36.4 [place] % (Auto) 43.4 H Eos % (Auto) 0.0 Baso % (Auto) 0.0 L Lymph # (Auto) 0.47 L [place] # (Auto) 0.6 Eos # (Auto) 0.0 Baso # (Auto) 0.0 Abs Immat Gran (auto) 0.01 Absolute Neuts (auto) 0.3 L* Absolute Nucleated RBC 0.000 Band Neutrophils % Not Reportable Nucleated RBC % 0.0 Smudge Cells Present Platelet Estimate Decreased Large Platelets Present % Immature Plt Fraction 6.3 Anisocytosis 1+ Macrocytosis Occasional Ovalocytes Occasional Schistocytes Rare Haptoglobin 237 PT 18.1 H INR 1.5 APTT 36.1 Sodium 129 L Potassium 3.8 Chloride 100 Carbon Dioxide 21 L Anion Gap 8 BUN 12 Creatinine 0.75 Estim Creat Clear Calc 73 Estimated GFR > 60 Glucose 111 H Calcium 8.3 L Magnesium 2.3 Total Bilirubin 1.4 H AST 47 ALT 26 Alkaline Phosphatase 147 H Total Protein 7.0 Albumin 3.6 Vancomycin Trough 6.7 L
[2025-02-03] MEDS: ATORVASTATIN 20 MG TABLET PO (20:26)
[2025-02-04] VITALS (9 sets, daily range): BP systolic 138–157; BP diastolic 59–84; PULSE 63–93; RESP 17–38; TEMP 36.4–37.5; O2SAT 92–98
[2025-02-04] MEDS: PIPERACILLIN/TAZOBACTAM SOD 3.375 GM in SODIUM CHLORIDE 0.9% IV 50 ML 100 ML IVPB ×4 (02:29→20:04)
[2025-02-04] MEDS: VANCOMYCIN 1,750 MG/NS 500 ML 1,750 MG/500 ML BAG 250 MG IVPB (03:01)
[2025-02-04 06:19] LABS: Hematocrit 29.2 % (42.0-52.0); Hemoglobin 9.8 g/dL (14.0-18.0); Immature Granulocyte Percent A 0.8 % (0-0.5); Immature Platelet Fraction Pct 8.0 % (0.9-11.2); Lymphocytes Absolute Auto 0.53 K/mm3 (0.9-3.2); Mean Corpuscular HGB Conc 33.6 g/dl (32-36); Mean Corpuscular Hemoglobin 33.8 pg (26-34); Mean Corpuscular Volume 100.7 fl (80-100); Nucleated Red Blood Cells Absolute Auto 0.000 K/mm3 (0.0-0.012); Nucleated Red Blood Cells Perc 0.0 % (0.0-0.2); Platelet Count Result 81 k/mm3 (150-375); Red Blood Count 2.90 M/mm3 (4.6-6.20); White Blood Count 2.6 K/mm3 (4.5-10.0)
[2025-02-04 06:40] LABS: Alanine Aminotransferase 29 U/L (6-50); Albumin Level 3.3 g/dL (3.5-5.1); Alkaline Phosphatase 179 U/L (38-126); Anion Gap 7 mmol/L (4-12); Aspartate Amino Transferase 45 U/L (17-59); Bilirubin,Total 1.2 mg/dL (0.2-1.3); Blood Urea Nitrogen 12 mg/dL (9-20); Calcium 8.1 mg/dL (8.4-10.2); Carbon Dioxide 22 mmol/L (22-30); Chloride 99 mmol/L (98-107); Estimated CRCL calculation 74 ml/min; Estimated Glomerular Filt Rate > 60; Glucose 123 mg/dL (65-110); Magnesium 2.3 mg/dL (1.6-2.3); Potassium 3.7 mmol/L (3.4-5.0); Sodium 128 mmol/L (137-145); Total Protein 6.5 g/dL (6.3-8.2)
[2025-02-04] MEDS: LOSARTAN POTASSIUM 50 MG TABLET PO (08:11)
[2025-02-04] MEDS: FERROUS SULFATE 325 MG TABLET BY MOUTH (08:11)
[2025-02-04] MEDS: TAMSULOSIN HCL 0.4 MG CAPSULE PO (08:11)
[2025-02-04] MEDS: guaiFENesin 12 HR 600 MG TABCR 1200 MG PO ×2 (08:19→20:04)
--- NOTE | 2025-02-04 08:30 | WPDONCPN ---
Subjective Date/time seen: 02/04/25 08:30 Interval history: [facility] [address] [place] [address] Oncology Progress Note Signed Patient: Augie Bunn MR#: [id number] : 1945 Acct:[id number] Age: 79 ADM Date: 02/01/25 Loc: [facility] [id number] Interval history: 02/01/25: Augie Bunn is a 79 year old male known to Dr. Lozano with a history of iron deficiency and who presented to the ER today with weakeness and nocturnal diaphoresis. Labs show pancytopenia which is a marked difference to the labs from 09/2024 when last seen by Dr. Lozano. He had an appt to be seen by Hematology next week. Labs: (10/01/24): WBC 4.5, Hgb 14.4, Hct 43.4, MCV 91.4, Plt 150 (01/27/25): WBC 1.9, ANC 0.2, lymph 0.74, mono 1.0, Hgb 11.9, Hct 25.5, MCV 102.0, Plt 71. Influenza A/B negative. COVID negative. (01/28/25): WBC 1.3, Hgb 11.5, Hct 34.1, MCV 100.9, Plt 60, ferritin 593 (02/01/25); WBC 1.2, ANC 0.2, lymph 0.52, mono 0.5, Hgb 11.1, Hct 32.5,MCV 99.1, Plt 76 CT CAP (01/28/25): 1. Borderline pathologic size paratracheal lymph nodes but no bulky lymphadenopathy or masses seen within the chest abdomen or pelvis. 2. No focal acute process. Peripheral smear evaluated by me on 02/01/25- markedly decreased neutrophils with scattered toxic granulations. No hypersegmented neutrophils. No blasts. Occasional reactive lymphocyte. No schistocytes. Some rouleaux formation. No plt clumping. Occasional large platelets. NO evidence of acute leukemia via this slide. Will await lab and BM results. 02/02/25: Patient feeling generally ill which is unchanged. No fever. Fair appetite. He vomited alittle this morning. 02/03/25: Patient feeling about the same although he dose report sleeping better and having no wierd dreams like he has at home. No fever or chills. No SOB. No CP. Unfortunately, was told that the patient will not be having his BM bx today despite my putting in an order over the weekend. Labs: (02/03/25): WBC 1.3, ANC 0.3, Hgb 9.7, Hct 28.2, Plt 70, BUN 12, crea 0.75, Na 129, PT 18.1, INR 1.5, PTT 36.1, LDH 220, Vitamin B12 >1000, folate >20, iron 50, TIBC 254, iron sat 20%. 02/04/25: Patient going stir crazy. He wants to move around and go home. BM bx scheduled for today. He is having no fever or chills. No SOB or CP. No complaints. Labs: (02/04/25): WBC 2.6, ANC 0.3, Hgb 9.8, Hct 29.2, MCV 100.7, Plt 81, Na 128, BUN 12, crea 0.4. IMPRESSION: Pancytopenia DD: BM infiltration/replacement with leukemia, MDS, MM, or cancer BM failure seen with drugs, LDL leukemia, autoimmune disorders as well as nutritional deficiencies. Destruction/sequestration with infections, etc. ORDERS: - NO growth factor - Prophylactic antibiotic; can change to a broad spectrum oral one. - Labs ordered yesterday still pendng: beta-2 microglobulin, retic, SPEP with reflex testing, peripheral smear, flow cytometry for L/L panel - BM aspiration and biopsy with flow cytometry Once BM bx is completed, patient can be discharged on oral antibiotic. Patient should be instructed to stay away from anyone ill. If he gets a fever (temp > 100.4F) he should go to the ER immediately. Please schedule f/u with Dr. Lozano next week. Thank you. Objective Data Vital Signs Vital Signs: Vital Signs - 24 hr 02/03/25 10:00 02/03/25 11:56 02/03/25 12:00 Temperature 37.0 C Pulse Rate 74 77 77 Respiratory Rate 20 20 Blood Pressure 144/69 H Pulse Oximetry 98 98 Oxygen Delivery Room Air 02/03/25 12:00 02/03/25 14:00 02/03/25 16:00 Temperature Pulse Rate 77 93 96 Respiratory Rate 20 Blood Pressure Pulse Oximetry Oxygen Delivery Room Air 02/03/25 16:00 02/03/25 16:00 02/03/25 20:41 Temperature 36.5 C 36.8 C Pulse Rate 96 78 75 Respiratory Rate 16 18 Blood Pressure 151/58 H 154/77 H Pulse Oximetry 98 96 Oxygen Delivery 02/04/25 00:28 02/04/25 04:21 02/04/25 07:49 Temperature 36.9 C 36.7 C 37.5 C Pulse Rate 89 87 63 Respiratory Rate 18 18 18 Blood Pressure 145/79 H 138/69 146/84 H Pulse Oximetry 96 92 96 Oxygen Delivery Intake/Output Intake/Output: Intake & Output 02/01/25 02/02/25 02/03/25 02/04/25 23:59 23:59 23:59 23:59 Intake Total 2915 1770 1875 550 Output Total 0165 447 9714 Balance 1665 995 700 550 Meds/Results Medications: Active Medications Generic Name Dose Route Start Last Admin Trade Name Freq PRN Reason Stop Dose Admin Acetaminophen 650 mg 02/01/25 14:11 02/03/25 03:54 Acetaminophen 325 Mg Tablet PO 650 mg Q4H PRN Administration Mild Pain (1-3) or Fever Atorvastatin Calcium 20 mg 02/01/25 21:00 02/03/25 20:26 Atorvastatin 20 Mg Tablet PO 20 mg QHS ANGELITO Administration Docusate Sodium 100 mg 02/01/25 14:11 Docusate Sodium 100 Mg Capsule PO BID PRN Constipation Ferrous Sulfate 325 mg 02/02/25 09:00 02/04/25 08:11 Ferrous Sulfate 325 Mg Tablet BY MOUTH 325 mg DAILY ANGELITO Administration Fluticasone Propionate 2 spray 02/01/25 20:02 Fluticasone Propionate 0.05% Na Spr 16 Gm Btl (*Bkc) NASAL QHS PRN ALLERGIES Guaifenesin 1,200 mg 02/04/25 09:00 02/04/25 08:19 Guaifenesin 12 Hr 600 Mg Tabcr PO 1,200 mg Q12HR ANGELITO Administration Piperacillin Sod/Tazobactam 50 mls @ 100 mls/hr 02/01/25 20:00 02/04/25 08:10 Sod 3.375 gm/ Sodium Chloride IVPB 100 mls/hr Q6H ANGELITO Administration Vancomycin HCl 1,750 mg in 500 mls @ 250 mls/hr 02/03/25 04:00 02/04/25 05:01 Vancomycin 1,750 Mg/Ns 500 Ml IVPB Infused Q12H ANGELITO Infusion Loratadine 10 mg 02/01/25 20:02 Loratadine 10 Mg Tablet PO DAILY PRN Allergic Symptoms Losartan Potassium 50 mg 02/02/25 09:00 02/04/25 08:11 Losartan Potassium 50 Mg Tablet PO 50 mg DAILY ANGELITO Administration Mirabegron 50 mg 02/02/25 09:00 02/03/25 09:18 Mirabegron 50 Mg Er Tablet PO 50 mg DAILY ANGELITO Administration Neomycin/Polymyxin/Bacitracin 1 applic 02/02/25 11:37 Neomycin/Polymyxin/Bacitracin Ointment 15 Gm Tube TOPICAL PRN PRN with dressing changes Ondansetron HCl 4 mg 02/02/25 14:59 Ondansetron Inj 4 Mg/2 Ml Vial IV PUSH Q6H PRN Nausea And Vomiting Rivaroxaban 20 mg 02/02/25 09:00 Rivaroxaban 20 Mg Tablet PO On Hold: 02/02/25 09:00 DAILY ANGELITO Comment: hold of bone marrow biopsy Tamsulosin HCl 0.4 mg 02/02/25 09:00 02/04/25 08:11 Tamsulosin Hcl 0.4 Mg Capsule PO 0.4 mg DAILY ANGELITO Administration Radiology Results: ITS Impressions Chest X-Ray 02/01/25 12:56 IMPRESSION: 1. No acute cardiopulmonary findings. Labs Labs: Laboratory Results - last 24 hr 02/01/25 02/03/25 02/04/25 15:26 09:15 05:30 WBC 2.6 L RBC 2.90 L Hgb 9.8 L Hct 29.2 L MCV 100.7 H MCH 33.8 MCHC 33.6 RDW 14.9 H Plt Count 81 L MPV 11.2 H Immature Gran % (Auto) 0.8 H Neut % (Auto) 10.5 L Lymph % (Auto) 20.6 [place] % (Auto) 67.7 H Eos % (Auto) 0.0 Baso % (Auto) 0.4 Lymph # (Auto) 0.53 L [place] # (Auto) 1.7 H Eos # (Auto) 0.0 Baso # (Auto) 0.0 Abs Immat Gran (auto) 0.02 Absolute Neuts (auto) 0.3 L* Absolute Nucleated RBC 0.000 Nucleated RBC % 0.0 % Immature Plt Fraction 8.0 Haptoglobin 237 PT 18.1 H INR 1.5 APTT 36.1 Sodium 128 L Potassium 3.7 Chloride 99 Carbon Dioxide 22 Anion Gap 7 BUN 12 Creatinine 0.74 Estim Creat Clear Calc 74 Estimated GFR > 60 Glucose 123 H Calcium 8.1 L Magnesium 2.3 Total Bilirubin 1.2 AST 45 ALT 29 Alkaline Phosphatase 179 H Total Protein 6.5 Albumin 3.3 L
[2025-02-04] MEDS: MIRABEGRON 50 MG ER TABLET PO (08:52)
--- NOTE | 2025-02-04 09:38 | WPDMODSED ---
Moderate Sedation Note-Pt Data Patient Data Diagnosis: pancytopenia Present Complaint: pancytopenia Procedure to be performed/Plan: bone marrow biopsy Allergies Allergy/AdvReac Type Severity Reaction Status Date / Time Beta-Blockers Allergy Severe Other Verified 02/01/25 14:58 (Beta-Adrenergic Bloc oxybutynin Allergy Severe Fainting Verified 02/01/25 14:58 Home Medications ?Medication ?Instructions ?Recorded ?Confirmed ?Type multivitamin 1 tablet PO DAILY 03/25/20 02/01/25 History omega-3 fatty acids 1,000 mg 1,200 mg PO DAILY 03/25/20 02/01/25 History capsule rivaroxaban 20 mg tablet (Xarelto) 20 mg PO DAILY 03/25/20 02/01/25 History glucosam 750 mg-chondroi 100 1 tablet PO DAILY 10/06/20 02/01/25 History mg-hyalur 1.65 mg-CF borate 108 mg tablet (RadioFrame) potassium citrate 99 mg capsule 99 mg PO DAILY 09/30/21 02/01/25 History acetaminophen 325 mg tablet 650 mg PO QAM 01/26/22 02/01/25 History cholecalciferol (vitamin D3) 125 125 mcg PO DAILY 04/11/23 02/01/25 History mcg (5,000 unit) tablet mirabegron 50 mg tablet,extended 50 mg PO DAILY 06/09/23 02/01/25 History release 24 hr (Myrbetriq) B-complex with vitamin C 1 cap PO DAILY 12/05/23 02/01/25 History loratadine 10 mg tablet (Claritin) 10 mg PO DAILY PRN allergic 04/17/24 02/01/25 History symptoms diclofenac sodium 1 % topical gel 2 g topical DAILY PRN arthritis 10/17/24 02/01/25 History (Voltaren Arthritis Pain) fluticasone propionate 50 2 spray intranasal QHS PRN 10/17/24 02/01/25 History mcg/actuation nasal ALLERGIES spray,suspension (Flonase Allergy Relief) tamsulosin 0.4 mg capsule (Flomax) 0.4 mg PO DAILY #90 caps 12/04/24 02/01/25 Rx losartan 50 mg tablet 50 mg PO DAILY #90 tabs 12/11/24 02/01/25 Rx atorvastatin 20 mg tablet 20 mg PO QHS #90 tabs 01/15/25 02/01/25 Rx ferrous sulfate 325 mg (65 mg 325 mg PO DAILY 01/27/25 02/01/25 History iron) tablet (Feosol) Current Medications: Active Medications Acetaminophen (Acetaminophen 325 Mg Tablet) 650 mg PO Q4H PRN PRN Reason: Mild Pain (1-3) or Fever Last Admin: 02/03/25 03:54 Dose: 650 mg Atorvastatin Calcium (Atorvastatin 20 Mg Tablet) 20 mg PO QHS [facility] Last Admin: 02/03/25 20:26 Dose: 20 mg Docusate Sodium (Docusate Sodium 100 Mg Capsule) 100 mg PO BID PRN PRN Reason: Constipation Ferrous Sulfate (Ferrous Sulfate 325 Mg Tablet) 325 mg BY MOUTH DAILY [facility] Last Admin: 02/04/25 08:11 Dose: 325 mg Fluticasone Propionate (Fluticasone Propionate 0.05% Na Spr 16 Gm Btl (*Bkc)) 2 spray NASAL QHS PRN PRN Reason: ALLERGIES Guaifenesin (Guaifenesin 12 Hr 600 Mg Tabcr) 1,200 mg PO Q12HR [facility] Last Admin: 02/04/25 08:19 Dose: 1,200 mg Piperacillin Sod/Tazobactam (Sod 3.375 gm/ Sodium Chloride) 50 mls @ 100 mls/hr IVPB Q6H [facility] Last Admin: 02/04/25 08:10 Dose: 100 mls/hr Vancomycin HCl (Vancomycin 1,750 Mg/Ns 500 Ml) 1,750 mg in 500 mls @ 250 mls/hr IVPB Q12H [facility] Last Infusion: 02/04/25 05:01 Dose: Infused Loratadine (Loratadine 10 Mg Tablet) 10 mg PO DAILY PRN PRN Reason: Allergic Symptoms Losartan Potassium (Losartan Potassium 50 Mg Tablet) 50 mg PO DAILY [facility] Last Admin: 02/04/25 08:11 Dose: 50 mg Mirabegron (Mirabegron 50 Mg Er Tablet) 50 mg PO DAILY [facility] Last Admin: 02/04/25 08:52 Dose: 50 mg Neomycin/Polymyxin/Bacitracin (Neomycin/Polymyxin/Bacitracin Ointment 15 Gm Tube) 1 applic TOPICAL PRN PRN PRN Reason: with dressing changes Ondansetron HCl (Ondansetron Inj 4 Mg/2 Ml Vial) 4 mg IV PUSH Q6H PRN PRN Reason: Nausea And Vomiting Rivaroxaban (Rivaroxaban 20 Mg Tablet) 20 mg PO DAILY [facility] On Hold: 02/02/25 09:00 Comment: hold of bone marrow biopsy Tamsulosin HCl (Tamsulosin Hcl 0.4 Mg Capsule) 0.4 mg PO DAILY [facility] Last Admin: 02/04/25 08:11 Dose: 0.4 mg Sedation/Anesthesia: No previous sedation/anesthesia problems (including family history). [facility] Past Medical History Medical History (Updated 02/01/25 @ 19:28 by Alvaro Hickey DO) Hyperlipidemia Iron deficiency anemia Prediabetes Environmental allergies BPH (benign prostatic hyperplasia) Osteoarthritis CAD in [place] artery Dyslipidemia Essential (primary) hypertension Atrial fibrillation Surgical History Surgical History History of hemorrhoidectomy (~05/2008) History of tonsillectomy (~1951) History of arthroscopy of right knee - Meniscus repair 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 History of exploratory laparotomy History of mitral valve repair Family History Family History Sibling Depression Mother Hypertension Father Cerebrovascular accident Family history of malignant neoplasm Social History Social History Social History: Caffeine-coffee Smoking packs per day: 2 Smoking cigarettes per day: 40.0 Years smoked: 16 Smoking pack-years: 32.00 Smoking status: Former smoker Tobacco type: cigarettes and smokeless tobacco Smokeless tobacco user: chewing tobacco Second hand tobacco smoke exposure: No Smoking end date: 03/20/69 Additional smoking assessment comments: Lip tobacco 16 years after quit smoking. Alcohol intake: current Drinks per week: 0 Alcohol use details: occasionally Substance use: never Substance use type: does not use Lack of Transportation: No Lack of Food: Never True Current Housing: I Have Housing Concerned About Future Housing: No Difficulty Paying Gas/Electric Bills: No Difficulty Paying for Meds: No Currently Unemployed: No Education: High School Diploma/GED Difficulty w/ Childcare or Family Care: No Living arrangements: with family Occupation/Education: retired Gender identity (if verbalized by the patient): Male Sexual Orientation (if Verbalized by the Patient): Straight or Heterosexual Spiritual care concerns: No Mod Sed Physical Exam Physical Exam Pre Procedural Exam: Normal: Appearance, Throat, Lungs, Heart Rate and Heart Rhythm Hours since solid foods: 10 Hours since liquid intake: 10 Mallampati Classification: class III Internal Medicine - PN: Obj Da Vital Signs Vital Signs: Vital Signs - 24 hr 02/03/25 10:00 02/03/25 11:56 02/03/25 12:00 Temperature 98.6 F Pulse Rate 74 77 77 Respiratory Rate 20 20 Blood Pressure 144/69 H Pulse Oximetry 98 98 Oxygen Delivery Room Air 02/03/25 12:00 02/03/25 14:00 02/03/25 16:00 Temperature Pulse Rate 77 93 96 Respiratory Rate 20 Blood Pressure Pulse Oximetry Oxygen Delivery Room Air 02/03/25 16:00 02/03/25 16:00 02/03/25 20:41 Temperature 97.7 F 98.2 F Pulse Rate 96 78 75 Respiratory Rate 16 18 Blood Pressure 151/58 H 154/77 H Pulse Oximetry 98 96 Oxygen Delivery 02/04/25 00:28 02/04/25 04:21 02/04/25 07:49 Temperature 98.4 F 98.0 F 99.5 F Pulse Rate 89 87 63 Respiratory Rate 18 18 18 Blood Pressure 145/79 H 138/69 146/84 H Pulse Oximetry 96 92 96 Oxygen Delivery Intake/Output Intake/Output: Intake & Output 02/01/25 02/02/25 02/03/25 02/04/25 23:59 23:59 23:59 23:59 Intake Total 2915 1770 1875 550 Output Total 0951 799 4686 Balance 1665 995 700 550 Meds/Results Medications: Active Medications Generic Name Dose Route Start Last Admin Trade Name Freq PRN Reason Stop Dose Admin Acetaminophen 650 mg 02/01/25 14:11 02/03/25 03:54 Acetaminophen 325 Mg Tablet PO 650 mg Q4H PRN Administration Mild Pain (1-3) or Fever Atorvastatin Calcium 20 mg 02/01/25 21:00 02/03/25 20:26 Atorvastatin 20 Mg Tablet PO 20 mg QHS [facility] Administration Docusate Sodium 100 mg 02/01/25 14:11 Docusate Sodium 100 Mg Capsule PO BID PRN Constipation Ferrous Sulfate 325 mg 02/02/25 09:00 02/04/25 08:11 Ferrous Sulfate 325 Mg Tablet BY MOUTH 325 mg DAILY [facility] Administration Fluticasone Propionate 2 spray 02/01/25 20:02 Fluticasone Propionate 0.05% Na Spr 16 Gm Btl (*Bkc) NASAL QHS PRN ALLERGIES Guaifenesin 1,200 mg 02/04/25 09:00 02/04/25 08:19 Guaifenesin 12 Hr 600 Mg Tabcr PO 1,200 mg Q12HR [facility] Administration Piperacillin Sod/Tazobactam 50 mls @ 100 mls/hr 02/01/25 20:00 02/04/25 08:10 Sod 3.375 gm/ Sodium Chloride IVPB 100 mls/hr Q6H [facility] Administration Vancomycin HCl 1,750 mg in 500 mls @ 250 mls/hr 02/03/25 04:00 02/04/25 05:01 Vancomycin 1,750 Mg/Ns 500 Ml IVPB Infused Q12H [facility] Infusion Loratadine 10 mg 02/01/25 20:02 Loratadine 10 Mg Tablet PO DAILY PRN Allergic Symptoms Losartan Potassium 50 mg 02/02/25 09:00 02/04/25 08:11 Losartan Potassium 50 Mg Tablet PO 50 mg DAILY [facility] Administration Mirabegron 50 mg 02/02/25 09:00 02/04/25 08:52 Mirabegron 50 Mg Er Tablet PO 50 mg DAILY [facility] Administration Neomycin/Polymyxin/Bacitracin 1 applic 02/02/25 11:37 Neomycin/Polymyxin/Bacitracin Ointment 15 Gm Tube TOPICAL PRN PRN with dressing changes Ondansetron HCl 4 mg 02/02/25 14:59 Ondansetron Inj 4 Mg/2 Ml Vial IV PUSH Q6H PRN Nausea And Vomiting Rivaroxaban 20 mg 02/02/25 09:00 Rivaroxaban 20 Mg Tablet PO On Hold: 02/02/25 09:00 DAILY [facility] Comment: hold of bone marrow biopsy Tamsulosin HCl 0.4 mg 02/02/25 09:00 02/04/25 08:11 Tamsulosin Hcl 0.4 Mg Capsule PO 0.4 mg DAILY [facility] Administration Radiology Results: ITS Impressions Chest X-Ray 02/01/25 12:56 IMPRESSION: 1. No acute cardiopulmonary findings. Labs 02/04/25 05:30 02/04/25 05:30 Labs: Laboratory Results - last 24 hr 11/15/25 11/17/25 11/18/25 15:26 09:15 05:30 WBC 2.6 L RBC 2.90 L Hgb 9.8 L Hct 29.2 L MCV 100.7 H MCH 33.8 MCHC 33.6 RDW 14.9 H Plt Count 81 L MPV 11.2 H Immature Gran % (Auto) 0.8 H Neut % (Auto) 10.5 L Lymph % (Auto) 20.6 [place] % (Auto) 67.7 H Eos % (Auto) 0.0 Baso % (Auto) 0.4 Lymph # (Auto) 0.53 L [place] # (Auto) 1.7 H Eos # (Auto) 0.0 Baso # (Auto) 0.0 Abs Immat Gran (auto) 0.02 Absolute Neuts (auto) 0.3 L* Absolute Nucleated RBC 0.000 Nucleated RBC % 0.0 % Immature Plt Fraction 8.0 Haptoglobin 237 PT 18.1 H INR 1.5 APTT 36.1 Sodium 128 L Potassium 3.7 Chloride 99 Carbon Dioxide 22 Anion Gap 7 BUN 12 Creatinine 0.74 Estim Creat Clear Calc 74 Estimated GFR > 60 Glucose 123 H Calcium 8.1 L Magnesium 2.3 Total Bilirubin 1.2 AST 45 ALT 29 Alkaline Phosphatase 179 H Total Protein 6.5 Albumin 3.3 L ASA Classification/Sedation ASA Classification/Sedation ASA Class: III Emergent: No Risks: Risks, benefits and alternatives explained and patient/family accepted plan for sedation. Patient re-evaluated immediately prior to sedation.
--- NOTE | 2025-02-04 09:50 | BM_PTH ---
PATIENT: Augie Bunn LOC: [id number] U#:[id number] AGE/SX: 79/M ROOM: 326 RE02/01/[address]: Brandon Tran MD : [id number] BED: 01 DIS: 02/07/2025 SPEC #: [id number] RECD: 02/04/25 10:01 STATUS: [email or web address] RENancy #: [id number] JULI: 02/04/25 09:[address]: Sheila Guillen DEPT: [facility] Bone Marrow RECD BY: Maria Isabel Alvarez ENTERED: 02/04/25 10:04 SP TYPE: Bone [place] AMANUEL DR: MD Beau Vidal DO Tissues: A - Bone Marrow Aspiration B - Bone Marrow Biopsy Procedures: Unstained Slides Hematoxylin and Eosin Stain Gross and Microscopic Level 4 Bone Marrow Smear Decalcification Iron Stain
--- NOTE | 2025-02-04 13:09 | P.PNIM_ITS ---
Progress Note: A&P Assessment and Plan (1) Neutropenic fever: Code(s): D70.9 - Neutropenia, unspecified; R50.81 - Fever presenting with conditions classified elsewhere Status: Acute (2) Pancytopenia: Code(s): D61.818 - Other pancytopenia Status: Acute (3) Essential (primary) hypertension: Code(s): I10 - Essential (primary) hypertension Status: Acute (4) CAD in [place] artery: Code(s): I25.10 - Atherosclerotic heart disease of [place] coronary artery without angina pectoris Status: Acute (5) Atrial fibrillation: Qualifiers: Atrial fibrillation type: longstanding persistent Qualified Code(s): I48.11 - Longstanding persistent atrial fibrillation Code(s): I48.91 - Unspecified atrial fibrillation Status: Acute Assessment and Plan: Delete (6) BPH (benign prostatic hyperplasia): Qualifiers: Lower urinary tract symptom presence: unspecified whether lower urinary tract symptoms present Qualified Code(s): N40.0 - Benign prostatic hyperplasia without lower urinary tract symptoms Code(s): N40.0 - Benign prostatic hyperplasia without lower urinary tract symptoms Status: Acute (7) Hyperlipidemia: Code(s): E78.5 - Hyperlipidemia, unspecified Status: Acute Assessment and Plan: Continue statin Plan This is a 79-year-old male who presents to the ER with weakness generalized. Labs showed pancytopenia with WBC 1.3 hemoglobin 11.[address] abdomen pelvis with borderline pathology excise paratracheal lymph nodes but no bulky lymphadenopathy or masses seen in the chest abdomen pelvis. Oncology has been consulted. Bone marrow biopsy planned Hypertension Hyperlipidemia Coronary artery disease status post CABG 02/2017 History of mitral valve repair 02/2017 Atrial fibrillation Sleep apnea Osteoarthritis BPH Eczema Pre diabetes Chronic anticoagulation with Xarelto currently on hold. Status post bone marrow biopsy 02/04/2025. Result awaited. Lower extremity edema due to venous insufficiency Osteoarthritis Iron deficiency anemia DVT prophylaxis restart Xarelto Code status full code Subjective Date/time seen: 02/04/25 13:09 Interval history: Patient underwent bone marrow biopsy today. Feels tired no other complaints. Remains afebrile. Review of Systems Review of Systems: All systems reviewed & are unremarkable except as noted in HPI and below Exam Narrative: General: Well-appearing, no respiratory distress HEENT: normocephalic, atraumatic. Mucous membranes moist. Neck supple without JVD, lymphadenopathy, or bruit. Respiratory: clear bilaterally. No rales/rhonic/wheezes. Cardiovascular: Regular rate and rhythm, normal S1-S2. No murmurs, rubs, or clicks. Abdomen: Soft, round, no pulsatile masses, nondistended and nontender. No rebound, no guarding. Extremities: No cyanosis, clubbing, or edema present. Pulses are palpable 2/2. Active ROM to all four extremities. Neuro: Alert and orientated x 4. PERRLA. Cranial nerves 2-12 intact without focal deficit. Skin: Warm, dry, and intact, without rash, erythema, or lesion. Psych: pleasant, cooperative, normal speech, normal affect, no hallucinations, no dysarthia Objective Data Vital Signs Vital Signs: Vital Signs - 24 hr 02/03/25 14:00 02/03/25 16:00 02/03/25 16:00 Temperature Pulse Rate 93 96 96 Respiratory Rate 20 Blood Pressure Pulse Oximetry Oxygen Delivery Room Air 02/03/25 16:00 02/03/25 20:41 02/04/25 00:28 Temperature 97.7 F 98.2 F 98.4 F Pulse Rate 78 75 89 Respiratory Rate 18 Blood Pressure 151/58 H 154/77 H 145/79 H Pulse Oximetry 98 96 96 Oxygen Delivery 02/04/25 04:21 02/04/25 07:49 02/04/25 10:15 Temperature 98.0 F 99.5 F Pulse Rate 87 63 81 Respiratory Rate 18 17 Blood Pressure 138/69 146/84 H 153/79 H Pulse Oximetry 92 96 96 Oxygen Delivery Room Air 02/04/25 10:30 02/04/25 10:45 02/04/25 11:23 Temperature 98.4 F Pulse Rate 73 83 77 Respiratory Rate 20 24 H 22 H Blood Pressure 146/73 H 149/73 H 152/69 H Pulse Oximetry 94 95 96 Oxygen Delivery Room Air Room Air Intake/Output Intake/Output: Intake & Output 02/01/25 02/02/25 02/03/25 02/04/25 23:59 23:59 23:59 23:59 Intake Total 2915 1770 1875 550 Output Total 7805 059 4137 Balance 1665 995 700 550 Meds/Results Medications: Active Medications Generic Name Dose Route Start Last Admin Trade Name Freq PRN Reason Stop Dose Admin Acetaminophen 650 mg 02/01/25 14:11 02/03/25 03:54 Acetaminophen 325 Mg Tablet PO 650 mg Q4H PRN Administration Mild Pain (1-3) or Fever Atorvastatin Calcium 20 mg 02/01/25 21:00 02/03/25 20:26 Atorvastatin 20 Mg Tablet PO 20 mg QHS [facility]O Administration Docusate Sodium 100 mg 02/01/25 14:11 Docusate Sodium 100 Mg Capsule PO BID PRN Constipation Ferrous Sulfate 325 mg 02/02/25 09:00 02/04/25 08:11 Ferrous Sulfate 325 Mg Tablet BY MOUTH 325 mg DAILY [facility]O Administration Fluticasone Propionate 2 spray 02/01/25 20:02 Fluticasone Propionate 0.05% Na Spr 16 Gm Btl (*Bkc) NASAL QHS PRN ALLERGIES Guaifenesin 1,200 mg 02/04/25 09:00 02/04/25 08:19 Guaifenesin 12 Hr 600 Mg Tabcr PO 1,200 mg Q12HR [facility] Administration Piperacillin Sod/Tazobactam 50 mls @ 100 mls/hr 02/01/25 20:00 02/04/25 08:10 Sod 3.375 gm/ Sodium Chloride IVPB 100 mls/hr Q6H [facility] Administration Vancomycin HCl 1,750 mg in 500 mls @ 250 mls/hr 02/03/25 04:00 02/04/25 05:01 Vancomycin 1,750 Mg/Ns 500 Ml IVPB Infused Q12H [facility] Infusion Loratadine 10 mg 02/01/25 20:02 Loratadine 10 Mg Tablet PO DAILY PRN Allergic Symptoms Losartan Potassium 50 mg 02/02/25 09:00 02/04/25 08:11 Losartan Potassium 50 Mg Tablet PO 50 mg DAILY [facility] Administration Mirabegron 50 mg 02/02/25 09:00 02/04/25 08:52 Mirabegron 50 Mg Er Tablet PO 50 mg DAILY [facility] Administration Neomycin/Polymyxin/Bacitracin 1 applic 02/02/25 11:37 Neomycin/Polymyxin/Bacitracin Ointment 15 Gm Tube TOPICAL PRN PRN with dressing changes Ondansetron HCl 4 mg 02/02/25 14:59 Ondansetron Inj 4 Mg/2 Ml Vial IV PUSH Q6H PRN Nausea And Vomiting Rivaroxaban 20 mg 02/02/25 09:00 Rivaroxaban 20 Mg Tablet PO On Hold: 02/02/25 09:00 DAILY [facility] Comment: hold of bone marrow biopsy Tamsulosin HCl 0.4 mg 02/02/25 09:00 02/04/25 08:11 Tamsulosin Hcl 0.4 Mg Capsule PO 0.4 mg DAILY [facility]O Administration Radiology Results: ITS Impressions Chest X-Ray 02/01/25 12:56 IMPRESSION: 1. No acute cardiopulmonary findings. Labs Labs: Laboratory Results - last 24 hr 02/04/25 05:30 WBC 2.6 L RBC 2.90 L Hgb 9.8 L Hct 29.2 L MCV 100.7 H MCH 33.8 MCHC 33.6 RDW 14.9 H Plt Count 81 L MPV 11.2 H Immature Gran % (Auto) 0.8 H Neut % (Auto) 10.5 L Lymph % (Auto) 20.6 [place] % (Auto) 67.7 H Eos % (Auto) 0.0 Baso % (Auto) 0.4 Lymph # (Auto) 0.53 L [place] # (Auto) 1.7 H Eos # (Auto) 0.0 Baso # (Auto) 0.0 Abs Immat Gran (auto) 0.02 Absolute Neuts (auto) 0.3 L* Absolute Nucleated RBC 0.000 Nucleated RBC % 0.0 % Immature Plt Fraction 8.0 Sodium 128 L Potassium 3.7 Chloride 99 Carbon Dioxide 22 Anion Gap 7 BUN 12 Creatinine 0.74 Estim Creat Clear Calc 74 Estimated GFR > 60 Glucose 123 H Calcium 8.1 L Magnesium 2.3 Total Bilirubin 1.2 AST 45 ALT 29 Alkaline Phosphatase 179 H Total Protein 6.5 Albumin 3.3 L
[2025-02-04] MEDS: VANCOMYCIN 2,000 MG/NS 500 ML 2,000 MG/500 ML BAG 250 MG IVPB (16:32)
[2025-02-04] MEDS: ATORVASTATIN 20 MG TABLET PO (20:04)
[2025-02-04 23:23] LABS: Hematocrit 27.4 % (42.0-52.0); Hemoglobin 9.4 g/dL (14.0-18.0)
[2025-02-05] VITALS (8 sets, daily range): BP systolic 133–158; BP diastolic 70–85; PULSE 61–98; RESP 18–48; TEMP 36.1–37.3; O2SAT 94–98
[2025-02-05] MEDS: PIPERACILLIN/TAZOBACTAM SOD 3.375 GM in SODIUM CHLORIDE 0.9% IV 50 ML 100 ML IVPB ×4 (01:58→20:11)
[2025-02-05] MEDS: VANCOMYCIN 2,000 MG/NS 500 ML 2,000 MG/500 ML BAG 250 MG IVPB ×2 (03:54→15:18)
--- NOTE | 2025-02-05 07:54 | P.PNONC_ITS ---
Subjective Date/time seen: 02/05/25 07:54 Interval history: 02/01/25: Augie Bunn is a 79 year old male known to Dr. Lozano with a history of iron deficiency and who presented to the ER today with weakeness and nocturnal diaphoresis. Labs show pancytopenia which is a marked difference to the labs from 09/2024 when last seen by Dr. Lozano. He had an appt to be seen by Hematology next week. Labs: (10/01/24): WBC 4.5, Hgb 14.4, Hct 43.4, MCV 91.4, Plt 150 (01/27/25): WBC 1.9, ANC 0.2, lymph 0.74, mono 1.0, Hgb 11.9, Hct 25.5, MCV 102.0, Plt 71. Influenza A/B negative. COVID negative. (01/28/25): WBC 1.3, Hgb 11.5, Hct 34.1, MCV 100.9, Plt 60, ferritin 593 (02/01/25); WBC 1.2, ANC 0.2, lymph 0.52, mono 0.5, Hgb 11.1, Hct 32.5,MCV 99.1, Plt 76 CT CAP (01/28/25): 1. Borderline pathologic size paratracheal lymph nodes but no bulky lymphadenopathy or masses seen within the chest abdomen or pelvis. 2. No focal acute process. Peripheral smear evaluated by me on 02/01/25- markedly decreased neutrophils with scattered toxic granulations. No hypersegmented neutrophils. No blasts. Occasional reactive lymphocyte. No schistocytes. Some rouleaux formation. No plt clumping. Occasional large platelets. NO evidence of acute leukemia via this slide. Will await lab and BM results. 02/02/25: Patient feeling generally ill which is unchanged. No fever. Fair appetite. He vomited alittle this morning. 02/03/25: Patient feeling about the same although he dose report sleeping better and having no wierd dreams like he has at home. No fever or chills. No SOB. No CP. Unfortunately, was told that the patient will not be having his BM bx today despite my putting in an order over the weekend. Labs: (02/03/25): WBC 1.3, ANC 0.3, Hgb 9.7, Hct 28.2, Plt 70, BUN 12, crea 0.75, Na 129, PT 18.1, INR 1.5, PTT 36.1, LDH 220, Vitamin B12 >1000, folate >20, iron 50, TIBC 254, iron sat 20%. 02/04/25: Patient going stir crazy. He wants to move around and go home. BM bx scheduled for today. He is having no fever or chills. No SOB or CP. No complaints. Labs: (02/04/25): WBC 2.6, ANC 0.3, Hgb 9.8, Hct 29.2, MCV 100.7, Plt 81, Na 128, BUN 12, crea 0.4. Called by Dr. Yasmin Cano, pathologist at [facility]. 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 No APL. 02/05/25: Patient has been accepted to [facility] but is awaiting a bed. This morning, he decided that he did not want therapy and wanted to go home. We talked. In my opinion, life expectancy without treatment is 1-3 weeks With treatment, 10% one year survival given his age. However, I believe a decision concerning treatment should be made AFTER discussion with the physician who specializes in this treatment at [facility]. I recommend he get transferred and then hold a discussion with the oncologist at that facility, with is entire family present, after which a decision concerning treatment can be made. If after the discussion he and his family decide against treatment, he can be discharged with Hospice. He voiced understanding and agreed. All questions were answered to his satisfaction. Thank you. Objective Data Vital Signs Vital Signs: Vital Signs - 24 hr 02/04/25 10:15 02/04/25 10:30 02/04/25 10:45 Temperature Pulse Rate 81 73 83 Respiratory Rate 17 20 24 H Blood Pressure 153/79 H 146/73 H 149/73 H Pulse Oximetry 96 94 95 Oxygen Delivery Room Air Room Air Room Air Oxygen Flow Rate 02/04/25 11:23 02/04/25 16:00 02/04/25 20:00 Temperature 36.9 C 36.6 C 36.4 C Pulse Rate 77 88 93 Respiratory Rate 22 H 18 24 H Blood Pressure 152/69 H 157/77 H 146/59 H Pulse Oximetry 96 94 98 Oxygen Delivery Oxygen Flow Rate 02/04/25 20:00 02/05/25 00:00 02/05/25 00:00 Temperature 36.7 C Pulse Rate 88 61 91 Respiratory Rate 38 H 40 H Blood Pressure 137/70 Pulse Oximetry 98 98 Oxygen Delivery Nasal Cannula Oxygen Flow Rate 2 02/05/25 04:00 02/05/25 04:00 Temperature 36.4 C L Pulse Rate 84 85 Respiratory Rate 48 H Blood Pressure 155/81 H Pulse Oximetry 97 Oxygen Delivery Oxygen Flow Rate Intake/Output Intake/Output: Intake & Output 02/02/25 02/03/25 02/04/25 02/05/25 23:59 23:59 23:59 23:59 Intake Total 1770 1875 1990 550 Output Total 775 1175 600 400 Balance 660 034 1778 150 Meds/Results Medications: Active Medications Generic Name Dose Route Start Last Admin Trade Name Freq PRN Reason Stop Dose Admin Acetaminophen 650 mg 02/01/25 14:11 02/03/25 03:54 Acetaminophen 325 Mg Tablet PO 650 mg Q4H PRN Administration Mild Pain (1-3) or Fever Atorvastatin Calcium 20 mg 02/01/25 21:00 02/04/25 20:04 Atorvastatin 20 Mg Tablet PO 20 mg QHS ANGELITO Administration Docusate Sodium 100 mg 02/01/25 14:11 Docusate Sodium 100 Mg Capsule PO BID PRN Constipation Ferrous Sulfate 325 mg 02/02/25 09:00 02/04/25 08:11 Ferrous Sulfate 325 Mg Tablet BY MOUTH 325 mg DAILY ANGELITO Administration Fluticasone Propionate 2 spray 02/01/25 20:02 Fluticasone Propionate 0.05% Na Spr 16 Gm Btl (*Bkc) NASAL QHS PRN ALLERGIES Guaifenesin 1,200 mg 02/04/25 09:00 02/04/25 20:04 Guaifenesin 12 Hr 600 Mg Tabcr PO 1,200 mg Q12HR ANGELITO Administration Piperacillin Sod/Tazobactam 50 mls @ 100 mls/hr 02/01/25 20:00 02/05/25 01:58 Sod 3.375 gm/ Sodium Chloride IVPB 100 mls/hr Q6H ANGELITO Administration Vancomycin HCl 2,000 mg in 500 mls @ 250 mls/hr 02/04/25 16:00 02/05/25 03:54 Vancomycin 2,000 Mg/Ns 500 Ml IVPB 250 mls/hr Q12H ANGELITO Administration Loratadine 10 mg 02/01/25 20:02 Loratadine 10 Mg Tablet PO DAILY PRN Allergic Symptoms Losartan Potassium 50 mg 02/02/25 09:00 02/04/25 08:11 Losartan Potassium 50 Mg Tablet PO 50 mg DAILY ANGELITO Administration Mirabegron 50 mg 02/02/25 09:00 02/04/25 08:52 Mirabegron 50 Mg Er Tablet PO 50 mg DAILY ANGELITO Administration Neomycin/Polymyxin/Bacitracin 1 applic 02/02/25 11:37 Neomycin/Polymyxin/Bacitracin Ointment 15 Gm Tube TOPICAL PRN PRN with dressing changes Ondansetron HCl 4 mg 02/02/25 14:59 Ondansetron Inj 4 Mg/2 Ml Vial IV PUSH Q6H PRN Nausea And Vomiting Rivaroxaban 20 mg 02/02/25 09:00 Rivaroxaban 20 Mg Tablet PO On Hold: 02/02/25 09:00 DAILY [facility] Comment: hold of bone marrow biopsy Tamsulosin HCl 0.4 mg 02/02/25 09:00 02/04/25 08:11 Tamsulosin Hcl 0.4 Mg Capsule PO 0.4 mg DAILY ANGELITO Administration Radiology Results: ITS Impressions Chest X-Ray 02/01/25 12:56 IMPRESSION: 1. No acute cardiopulmonary findings. Labs Labs: Laboratory Results - last 24 hr 02/04/25 02/04/25 15:28 23:18 Hgb 9.4 L Hct 27.4 L Vancomycin Trough 10.8
[2025-02-05 08:19] LABS: Hematocrit 32.9 % (42.0-52.0); Hemoglobin 10.9 g/dL (14.0-18.0)
[2025-02-05] MEDS: TAMSULOSIN HCL 0.4 MG CAPSULE PO (08:43)
[2025-02-05] MEDS: MIRABEGRON 50 MG ER TABLET PO (08:43)
[2025-02-05] MEDS: LOSARTAN POTASSIUM 50 MG TABLET PO (08:43)
[2025-02-05] MEDS: FERROUS SULFATE 325 MG TABLET BY MOUTH (08:43)
[2025-02-05] MEDS: guaiFENesin 12 HR 600 MG TABCR 1200 MG PO ×2 (08:43→20:11)
--- NOTE | 2025-02-05 13:04 | P.PNIM_ITS ---
Progress Note: A&P Assessment and Plan (1) Leukemia: Code(s): C95.90 - Leukemia, unspecified not having achieved remission Status: Acute Assessment and Plan: Patient presents to the ER with weakness generalized. Labs showed pancytopenia CT abdomen pelvis with borderline pathology excise paratracheal lymph nodes but no bulky lymphadenopathy or masses seen in the chest abdomen pelvis. Oncology was consulted. Bone marrow biopsy performed. Preliminary path showing acute leukemia. [facility] for [facility] He has been accepted but awaiting bed availability. (2) Neutropenic fever: Code(s): D70.9 - Neutropenia, unspecified; R50.81 - Fever presenting with conditions classified elsewhere Status: Acute Assessment and Plan: No documented fevers here. Remains on Vanco and Zosyn BCx NGTD No PNA by CT Follow (3) Pancytopenia: Code(s): D61.818 - Other pancytopenia Status: Acute Assessment and Plan: Related to acute leukemia Counts low Follow (4) Essential (primary) hypertension: Code(s): I10 - Essential (primary) hypertension Status: Acute Assessment and Plan: Patient's blood pressure was reviewed on 02/05 Blood pressure remains well controlled. Will continue to follow (5) CAD in [place] artery: Code(s): I25.10 - Atherosclerotic heart disease of [place] coronary artery without angina pectoris Status: Acute Assessment and Plan: No CP. Stable. (6) Atrial fibrillation: Qualifiers: Atrial fibrillation type: longstanding persistent Qualified Code(s): I4 8.11 - Longstanding persistent atrial fibrillation Code(s): I48.91 - Unspecified atrial fibrillation Status: Acute Assessment and Plan: Stable. Xarelto on hold. No on rate lowering agents. Follow (7) BPH (benign prostatic hyperplasia): Qualifiers: Lower urinary tract symptom presence: unspecified whether lower urinary tract symptoms present Qualified Code(s): N40.0 - Benign prostatic hyperplasia without lower urinary tract symptoms Code(s): N40.0 - Benign prostatic hyperplasia without lower urinary tract symptoms Status: Acute Assessment and Plan: Stable. Continue Flomax Plan DVT prophylaxis SCD Code status full code Subjective Date/time seen: 02/05/25 13:04 Interval history: 79yo male with CAD/CABG, AFib, and HTN who presents the hospital with malaise and diaphoresis. Assuming care. Chart reviewed. Patient aware of his diagnosis. He is having trouble eating and tolerating oral intake. He is agreeable for transfer but is considering hospice if he feels the treatment would be too difficult to handle. Exam Narrative: AF 98.0 158/75 84 24 94% ra Gen - NARD sitting up in bed Chest - dry inspiratory crackles mid and lower lung presley. CV - RRR S1/S2. Tele showing occasional PVC Abd - Soft, NT/ND, Positive BS Ext - No pedal edema Neuro - Alert and appropriate Psych - Nml mood and affect Skin - Warm and dry Objective Data Vital Signs Vital Signs: Vital Signs - 24 hr 02/04/25 16:00 02/04/25 20:00 02/04/25 20:00 Temperature 97.8 F 97.6 F Pulse Rate 88 93 88 Respiratory Rate 18 24 H 38 H Blood Pressure 157/77 H 146/59 H Pulse Oximetry 94 98 98 Oxygen Delivery Nasal Cannula Oxygen Flow Rate 2 02/05/25 00:00 02/05/25 00:00 02/05/25 04:00 Temperature 98.1 F Pulse Rate 61 91 84 Respiratory Rate 40 H Blood Pressure 137/70 Pulse Oximetry 98 Oxygen Delivery Oxygen Flow Rate 02/05/25 04:00 02/05/25 08:00 02/05/25 08:00 Temperature 97.5 F L 97.0 F L Pulse Rate 85 86 88 Respiratory Rate 48 H 20 Blood Pressure 155/81 H 141/71 H Pulse Oximetry 97 97 Oxygen Delivery Oxygen Flow Rate 02/05/25 12:00 Temperature 98.0 F Pulse Rate 84 Respiratory Rate 24 H Blood Pressure 158/75 H Pulse Oximetry 94 Oxygen Delivery Oxygen Flow Rate Intake/Output Intake/Output: Intake & Output 02/02/25 02/03/25 02/04/25 02/05/25 23:59 23:59 23:59 23:59 Intake Total 1770 1875 1990 836 Output Total 775 1175 600 400 Balance 319 980 8051 436 Meds/Results Medications: Active Medications Generic Name Dose Route Start Last Admin Trade Name Freq PRN Reason Stop Dose Admin Acetaminophen 650 mg 02/01/25 14:11 02/03/25 03:54 Acetaminophen 325 Mg Tablet PO 650 mg Q4H PRN Administration Mild Pain (1-3) or Fever Atorvastatin Calcium 20 mg 02/01/25 21:00 02/04/25 20:04 Atorvastatin 20 Mg Tablet PO 20 mg QHS ANGELITO Administration Docusate Sodium 100 mg 02/01/25 14:11 Docusate Sodium 100 Mg Capsule PO BID PRN Constipation Ferrous Sulfate 325 mg 02/02/25 09:00 02/05/25 08:43 Ferrous Sulfate 325 Mg Tablet BY MOUTH 325 mg DAILY ANGELITO Administration Fluticasone Propionate 2 spray 02/01/25 20:02 Fluticasone Propionate 0.05% Na Spr 16 Gm Btl (*Bkc) NASAL QHS PRN ALLERGIES Guaifenesin 1,200 mg 02/04/25 09:00 02/05/25 08:43 Guaifenesin 12 Hr 600 Mg Tabcr PO 1,200 mg Q12HR ANGELITO Administration Piperacillin Sod/Tazobactam 50 mls @ 100 mls/hr 02/01/25 20:00 02/05/25 08:39 Sod 3.375 gm/ Sodium Chloride IVPB 100 mls/hr Q6H ANGELITO Administration Vancomycin HCl 2,000 mg in 500 mls @ 250 mls/hr 02/04/25 16:00 02/05/25 03:54 Vancomycin 2,000 Mg/Ns 500 Ml IVPB 250 mls/hr Q12H ANGELITO Administration Loratadine 10 mg 02/01/25 20:02 Loratadine 10 Mg Tablet PO DAILY PRN Allergic Symptoms Losartan Potassium 50 mg 02/02/25 09:00 02/05/25 08:43 Losartan Potassium 50 Mg Tablet PO 50 mg DAILY ANGELITO Administration Mirabegron 50 mg 02/02/25 09:00 02/05/25 08:43 Mirabegron 50 Mg Er Tablet PO 50 mg DAILY ANGELITO Administration Neomycin/Polymyxin/Bacitracin 1 applic 02/02/25 11:37 Neomycin/Polymyxin/Bacitracin Ointment 15 Gm Tube TOPICAL PRN PRN with dressing changes Ondansetron HCl 4 mg 02/02/25 14:59 Ondansetron Inj 4 Mg/2 Ml Vial IV PUSH Q6H PRN Nausea And Vomiting Rivaroxaban 20 mg 02/02/25 09:00 Rivaroxaban 20 Mg Tablet PO On Hold: 02/02/25 09:00 DAILY [facility]CLUDES [facility] Comment: hold of bone marrow biopsy Tamsulosin HCl 0.4 mg 02/02/25 09:00 02/05/25 08:43 Tamsulosin Hcl 0.4 Mg Capsule PO 0.4 mg DAILY ANGELITO Administration Radiology Results: ITS Impressions Chest X-Ray 02/01/25 12:56 IMPRESSION: 1. No acute cardiopulmonary findings. Labs Labs: Laboratory Results - last 24 hr 02/04/25 02/04/25 02/05/25 15:28 23:18 07:50 Hgb 9.4 L 10.9 L Hct 27.4 L 32.9 L Vancomycin Trough 10.8
[2025-02-05] MEDS: ACETAMINOPHEN 325 MG TABLET 650 MG PO (15:22)
[2025-02-05] MEDS: ATORVASTATIN 20 MG TABLET PO (20:11)
[2025-02-06] VITALS (7 sets, daily range): BP systolic 135–160; BP diastolic 68–90; PULSE 53–106; RESP 15–36; TEMP 35.9–37; O2SAT 94–96
[2025-02-06] MEDS: PIPERACILLIN/TAZOBACTAM SOD 3.375 GM in SODIUM CHLORIDE 0.9% IV 50 ML 100 ML IVPB ×3 (01:42→12:59)
[2025-02-06 03:12] LABS: Hematocrit 28.2 % (42.0-52.0); Hemoglobin 9.8 g/dL (14.0-18.0); Immature Platelet Fraction Pct 6.4 % (0.9-11.2); Mean Corpuscular HGB Conc 34.8 g/dl (32-36); Mean Corpuscular Hemoglobin 34.4 pg (26-34); Mean Corpuscular Volume 98.9 fl (80-100); Platelet Count Result 74 k/mm3 (150-375); Red Blood Count 2.85 M/mm3 (4.6-6.20); White Blood Count 5.4 K/mm3 (4.5-10.0)
[2025-02-06 03:22] LABS: Alanine Aminotransferase 31 U/L (6-50); Albumin Level 3.1 g/dL (3.5-5.1); Alkaline Phosphatase 238 U/L (38-126); Anion Gap 7 mmol/L (4-12); Aspartate Amino Transferase 44 U/L (17-59); Bilirubin,Total 1.7 mg/dL (0.2-1.3); Blood Urea Nitrogen 13 mg/dL (9-20); Calcium 7.7 mg/dL (8.4-10.2); Carbon Dioxide 21 mmol/L (22-30); Chloride 98 mmol/L (98-107); Estimated CRCL calculation 75 ml/min; Estimated Glomerular Filt Rate > 60; Glucose 118 mg/dL (65-110); Magnesium 2.1 mg/dL (1.6-2.3); Potassium 3.3 mmol/L (3.4-5.0); Sodium 126 mmol/L (137-145); Total Protein 6.1 g/dL (6.3-8.2)
[2025-02-06 03:59] LABS: Lymphocytes Absolute Manual 1.24 K/mm3 (1.1-4.5); Lymphocytes Percent Manual 23.0 % (18-44); Monocytes Absolute Manual 3.29 K/mm3 (0.1-0.90); Monocytes Percent Manual 61 % (3-9); Neutrophils Percent Manual 16 % (46-73); Total Cells Counted 100
[2025-02-06 04:04] LABS: Anisocytosis 1+; Burr Cells 1+; Microcytosis 1+ (NORMAL)
[2025-02-06 04:06] LABS: Schistocytes None Seen
[2025-02-06] MEDS: VANCOMYCIN 2,000 MG/NS 500 ML 2,000 MG/500 ML BAG 250 MG IVPB (04:08)
--- NOTE | 2025-02-06 07:22 | WPDONCPN ---
Progress Note: A&P Assessment and Plan (1) Leukemia: Code(s): C95.90 - Leukemia, unspecified not having achieved remission Status: Acute Assessment and Plan: Awaiting bed at [facility] (2) Neutropenic fever: Code(s): D70.9 - Neutropenia, unspecified; R50.81 - Fever presenting with conditions classified elsewhere Status: Acute Assessment and Plan: No fever. On prophylactic Zosyn and Vanco (3) Pancytopenia: Code(s): D61.818 - Other pancytopenia Status: Acute Assessment and Plan: Related to acute leukemia Counts low No growth factors! Transfuse only LEUKOPOOR IRRADIATED blood units. Transfuse if Hgb < 6 or Plt < 10 (4) Essential (primary) hypertension: Code(s): I10 - Essential (primary) hypertension Status: Acute Assessment and Plan: (5) CAD in [place] artery: Code(s): I25.10 - Atherosclerotic heart disease of [place] coronary artery without angina pectoris Status: Acute (6) Atrial fibrillation: Qualifiers: Atrial fibrillation type: longstanding persistent Qualified Code(s): I48.11 - Longstanding persistent atrial fibrillation Code(s): I48.91 - Unspecified atrial fibrillation Status: Acute Assessment and Plan: (7) BPH (benign prostatic hyperplasia): Qualifiers: Lower urinary tract symptom presence: unspecified whether lower urinary tract symptoms present Qualified Code(s): N40.0 - Benign prostatic hyperplasia without lower urinary tract symptoms Code(s): N40.0 - Benign prostatic hyperplasia without lower urinary tract symptoms Status: Acute Plan Transfer to [facility] Subjective Date/time seen: 02/06/25 07:22 Interval history: Interval history: 02/01/25: Augie Bunn is a 79 year old male known to Dr. Lozano with a history of iron deficiency and who presented to the ER today with weakeness and nocturnal diaphoresis. Labs show pancytopenia which is a marked difference to the labs from 09/2024 when last seen by Dr. Lozano. He had an appt to be seen by Hematology next week. Labs: (10/01/24): WBC 4.5, Hgb 14.4, Hct 43.4, MCV 91.4, Plt 150 (01/27/25): WBC 1.9, ANC 0.2, lymph 0.74, mono 1.0, Hgb 11.9, Hct 25.5, MCV 102.0, Plt 71. Influenza A/B negative. COVID negative. (01/28/25): WBC 1.3, Hgb 11.5, Hct 34.1, MCV 100.9, Plt 60, ferritin 593 (02/01/25); WBC 1.2, ANC 0.2, lymph 0.52, mono 0.5, Hgb 11.1, Hct 32.5,MCV 99.1, Plt 76 CT CAP (01/28/25): 1. Borderline pathologic size paratracheal lymph nodes but no bulky lymphadenopathy or masses seen within the chest abdomen or pelvis. 2. No focal acute process. Peripheral smear evaluated by me on 02/01/25- markedly decreased neutrophils with scattered toxic granulations. No hypersegmented neutrophils. No blasts. Occasional reactive lymphocyte. No schistocytes. Some rouleaux formation. No plt clumping. Occasional large platelets. NO evidence of acute leukemia via this slide. Will await lab and BM results. 02/02/25: Patient feeling generally ill which is unchanged. No fever. Fair appetite. He vomited alittle this morning. 02/03/25: Patient feeling about the same although he dose report sleeping better and having no wierd dreams like he has at home. No fever or chills. No SOB. No CP. Unfortunately, was told that the patient will not be having his BM bx today despite my putting in an order over the weekend. Labs: (02/03/25): WBC 1.3, ANC 0.3, Hgb 9.7, Hct 28.2, Plt 70, BUN 12, crea 0.75, Na 129, PT 18.1, INR 1.5, PTT 36.1, LDH 220, Vitamin B12 >1000, folate >20, iron 50, TIBC 254, iron sat 20%. 02/04/25: Patient going stir crazy. He wants to move around and go home. BM bx scheduled for today. He is having no fever or chills. No SOB or CP. No complaints. Labs: (02/04/25): WBC 2.6, ANC 0.3, Hgb 9.8, Hct 29.2, MCV 100.7, Plt 81, Na 128, BUN 12, crea 0.4. Called by Dr. Yasmin Cano, pathologist at [facility]. 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 No APL. 02/05/25: Patient has been accepted to [facility] but is awaiting a bed. This morning, he decided that he did not want therapy and wanted to go home. We talked. In my opinion, life expectancy without treatment is 1-3 weeks With treatment, 10% one year survival given his age. However, I believe a decision concerning treatment should be made AFTER discussion with the physician who specializes in this treatment at [facility]. I recommend he get transferred and then hold a discussion with the oncologist at that facility, with is entire family present, after which a decision concerning treatment can be made. If after the discussion he and his family decide against treatment, he can be discharged with Hospice. He voiced understanding and agreed. All questions were answered to his satisfaction. Thank you. 02/06/25: Patient doing worse. Sweating. Increasing fatigue. Bone aches have begun over sternum and upper arms/shoulders. Tylenol helps somewhat Still awaiting transfer to [facility]; he has been accepted there but the bed situation is the problem. Would [facility] be an option? Daughter present. Labs: (02/06/25): WBC 5.4, 16% segs, Hgb 9.8, Hct 28.2, Plt 74. Will review smear. I suspect WBC is increasing due to blast count. This patient will not make it if he does not get transferred soon. I have a call out to the oncologist at [facility]. Review of Systems Constitutional Comments: Feeling poorly. Diaphoretic Musculoskeletal Comments: Bone aches are starting Exam Narrative: Ill appearing male Eyes: Other: Anicteric sclerae Resp: Other: Bilateral air entry Cardio: Other: RRR Skin: Other: No petechiae Neuro: Other: Alert and awake. Grossly nonfocal. Objective Data Vital Signs Vital Signs: Vital Signs - 24 hr 02/05/25 08:00 02/05/25 08:00 02/05/25 12:00 Temperature 36.1 C L 36.7 C Pulse Rate 86 88 84 Respiratory Rate 20 24 H Blood Pressure 141/71 H 158/75 H Pulse Oximetry 97 94 Oxygen Delivery Oxygen Flow Rate 02/05/25 12:00 02/05/25 15:22 02/05/25 16:00 Temperature 37.3 C 37.3 C Pulse Rate 80 73 Respiratory Rate 18 Blood Pressure 153/83 H Pulse Oximetry 95 Oxygen Delivery Oxygen Flow Rate 02/05/25 16:00 02/05/25 20:00 02/05/25 20:00 Temperature 36.6 C Pulse Rate 88 87 98 Respiratory Rate 28 H Blood Pressure 133/85 Pulse Oximetry 97 Oxygen Delivery Oxygen Flow Rate 02/05/25 20:11 02/06/25 00:00 02/06/25 00:00 Temperature 36.9 C Pulse Rate 87 91 Respiratory Rate 36 H Blood Pressure 160/90 H Pulse Oximetry 96 96 Oxygen Delivery Nasal Cannula Oxygen Flow Rate 3 02/06/25 04:00 02/06/25 04:00 Temperature 36.7 C Pulse Rate 94 100 Respiratory Rate 34 H Blood Pressure 156/77 H Pulse Oximetry 96 Oxygen Delivery Oxygen Flow Rate Intake/Output Intake/Output: Intake & Output 02/03/25 02/04/25 02/05/25 02/06/25 23:59 23:59 23:59 23:59 Intake Total 1875 1989 2536 450 Output Total 1175 600 850 Balance 700 1390 1686 450 Meds/Results Medications: Active Medications Generic Name Dose Route Start Last Admin Trade Name Freq PRN Reason Stop Dose Admin Acetaminophen 650 mg 02/01/25 14:11 02/05/25 15:22 Acetaminophen 325 Mg Tablet PO 650 mg Q4H PRN Administration Mild Pain (1-3) or Fever Atorvastatin Calcium 20 mg 02/01/25 21:00 02/05/25 20:11 Atorvastatin 20 Mg Tablet PO 20 mg QHS ANGELITO Administration Docusate Sodium 100 mg 02/01/25 14:11 Docusate Sodium 100 Mg Capsule PO BID PRN Constipation Ferrous Sulfate 325 mg 02/02/25 09:00 02/05/25 08:43 Ferrous Sulfate 325 Mg Tablet BY MOUTH 325 mg DAILY ANGELITO Administration Fluticasone Propionate 2 spray 02/01/25 20:02 Fluticasone Propionate 0.05% Na Spr 16 Gm Btl (*Bkc) NASAL QHS PRN ALLERGIES Guaifenesin 1,200 mg 02/04/25 09:00 02/05/25 20:11 Guaifenesin 12 Hr 600 Mg Tabcr PO 1,200 mg Q12HR ANGELITO Administration Piperacillin Sod/Tazobactam 50 mls @ 100 mls/hr 02/01/25 20:00 02/06/25 01:42 Sod 3.375 gm/ Sodium Chloride IVPB 100 mls/hr Q6H ANGELITO Administration Vancomycin HCl 2,000 mg in 500 mls @ 250 mls/hr 02/04/25 16:00 02/06/25 04:08 Vancomycin 2,000 Mg/Ns 500 Ml IVPB 250 mls/hr Q12H ANGELITO Administration Loratadine 10 mg 02/01/25 20:02 Loratadine 10 Mg Tablet PO DAILY PRN Allergic Symptoms Losartan Potassium 50 mg 02/02/25 09:00 02/05/25 08:43 Losartan Potassium 50 Mg Tablet PO 50 mg DAILY ANGELITO Administration Mirabegron 50 mg 02/02/25 09:00 02/05/25 08:43 Mirabegron 50 Mg Er Tablet PO 50 mg DAILY ANGELITO Administration Neomycin/Polymyxin/Bacitracin 1 applic 02/02/25 11:37 Neomycin/Polymyxin/Bacitracin Ointment 15 Gm Tube TOPICAL PRN PRN with dressing changes Ondansetron HCl 4 mg 02/02/25 14:59 Ondansetron Inj 4 Mg/2 Ml Vial IV PUSH Q6H PRN Nausea And Vomiting Rivaroxaban 20 mg 02/02/25 09:00 Rivaroxaban 20 Mg Tablet PO On Hold: 02/02/25 09:00 DAILY [facility] Comment: hold of bone marrow biopsy Tamsulosin HCl 0.4 mg 02/02/25 09:00 02/05/25 08:43 Tamsulosin Hcl 0.4 Mg Capsule PO 0.4 mg DAILY ANGELITO Administration Radiology Results: ITS Impressions Chest X-Ray 02/01/25 12:56 IMPRESSION: 1. No acute cardiopulmonary findings. Biopsy,Fluoroscopy Guided 02/04/25 12:58 IMPRESSION: 1. Successful fluoroscopic guided bone marrow aspiration. 2. Successful fluoroscopic guided bone marrow biopsy. Labs Labs: Laboratory Results - last 24 hr 02/05/25 02/06/25 07:50 03:05 WBC 5.4 RBC 2.85 L Hgb 10.9 L 9.8 L Hct 32.9 L 28.2 L MCV 98.9 MCH 34.4 H MCHC 34.8 RDW 15.2 H Plt Count 74 L MPV 11.4 H Immature Gran % (Auto) Not Reportable Neut % (Auto) Not Reportable Lymph % (Auto) Not Reportable [place] % (Auto) Not Reportable Eos % (Auto) Not Reportable Baso % (Auto) Not Reportable Lymph # (Auto) Not Reportable [place] # (Auto) Not Reportable Eos # (Auto) Not Reportable Baso # (Auto) Not Reportable Abs Immat Gran (auto) Not Reportable Absolute Neuts (auto) Not Reportable Absolute Nucleated RBC Not Reportable Total Counted 100 Neutrophils % (Manual) 16 L Band Neutrophils % Not Reportable Lymphocytes % (Manual) 23.0 Monocytes % (Manual) 61 H Nucleated RBC % Not Reportable Abs Lymphs (Manual) 1.24 Abs Monocytes (Manual) 3.29 H Atypical Lymphocytes Present Platelet Estimate Decreased % Immature Plt Fraction 6.4 Anisocytosis 1+ Microcytosis 1+ Jadyn Cells 1+ Schistocytes None seen Sodium 126 L Potassium 3.3 L Chloride 98 Carbon Dioxide 21 L Anion Gap 7 BUN 13 Creatinine 0.73 Estim Creat Clear Calc 75 Estimated GFR > 60 Glucose 118 H Calcium 7.7 L Phosphorus 2.7 Magnesium 2.1 Total Bilirubin 1.7 H AST 44 ALT 31 Alkaline Phosphatase 238 H Total Protein 6.1 L Albumin 3.1 L Vancomycin Trough 15.3
[2025-02-06] MEDS: guaiFENesin 12 HR 600 MG TABCR 1200 MG PO ×2 (08:46→21:57)
[2025-02-06] MEDS: MIRABEGRON 50 MG ER TABLET PO (08:46)
[2025-02-06] MEDS: TAMSULOSIN HCL 0.4 MG CAPSULE PO (08:46)
[2025-02-06] MEDS: FERROUS SULFATE 325 MG TABLET BY MOUTH (08:46)
[2025-02-06] MEDS: LOSARTAN POTASSIUM 50 MG TABLET PO (08:46)
[2025-02-06] MEDS: POTASSIUM CHLORIDE 20 MEQ ER TABLET 40 MEQ PO (09:11)
[2025-02-06 10:51] LABS: Urea Random Urine 721 MG/DL
[2025-02-06] MEDS: ACETAMINOPHEN 325 MG TABLET 650 MG PO (11:18)
[2025-02-06] MEDS: ONDANSETRON INJ 4 MG/2 ML VIAL IV PUSH (12:58)
--- NOTE | 2025-02-06 14:20 | P.PNIM_ITS ---
Progress Note: A&P Assessment and Plan (1) Leukemia: Code(s): C95.90 - Leukemia, unspecified not having achieved remission Status: Acute Assessment and Plan: Patient presents to the ER with weakness generalized. Labs showed pancytopenia CT abdomen pelvis with borderline pathology excise paratracheal lymph nodes but no bulky lymphadenopathy or masses seen in the chest abdomen pelvis. Oncology was consulted. Bone marrow biopsy performed. Preliminary path showing acute leukemia. [facility] for [facility] to [facility] but patient now refusing transfer and wanting to proceed with hospice care. Long discussion about what hospice entails and he is agreeable. Family in the room are supportive. Hospice consult. Comfort measures. Minimize medications. (2) Neutropenic fever: Code(s): D70.9 - Neutropenia, unspecified; R50.81 - Fever presenting with conditions classified elsewhere Status: Acute Assessment and Plan: No documented fevers here. Remains on Vanco and Zosyn BCx NGTD No PNA by CT Stop abx. (3) Pancytopenia: Code(s): D61.818 - Other pancytopenia Status: Acute Assessment and Plan: Related to acute leukemia Counts low Follow (4) Essential (primary) hypertension: Code(s): I10 - Essential (primary) hypertension Status: Acute Assessment and Plan: Patient's blood pressure was reviewed on 02/06 Blood pressure remains good controlled. Will continue to follow (5) CAD in [place] artery: Code(s): I25.10 - Atherosclerotic heart disease of [place] coronary artery without angina pectoris Status: Acute Assessment and Plan: No CP. Stable. Okay to stop tele. (6) Atrial fibrillation: Qualifiers: Atrial fibrillation type: longstanding persistent Qualified Code(s): I48.11 - Longstanding persistent atrial fibrillation Code(s): I48.91 - Unspecified atrial fibrillation Status: Acute Assessment and Plan: Stable. Xarelto on hold. No on rate lowering agents. Follow (7) BPH (benign prostatic hyperplasia): Qualifiers: Lower urinary tract symptom presence: unspecified whether lower urinary tract symptoms present Qualified Code(s): N40.0 - Benign prostatic hyperplasia without lower urinary tract symptoms Code(s): N40.0 - Benign prostatic hyperplasia without lower urinary tract symptoms Status: Acute Assessment and Plan: Stable. Continue Flomax Plan DVT prophylaxis SCD Code status full code Subjective Date/time seen: 02/06/25 14:20 Interval history: 79yo male with CAD/CABG, AFib, and HTN who presents the hospital with malaise and diaphoresis. Patient seen earlier in the day and was complaining of increasing SOB and no appetite. A bed became available at [facility] but now patient refusing transfer. He wants to proceed with hospice care. He voices understanding that he will from this disease. Exam Narrative: AF 97.4 148/79 53 15 94% 3L Gen - NARD sitting up in bed Chest - inspiratory crackles mid and lower lung presley. CV - RRR S1/S2. Tele showing occasional PVC Abd - Soft, NT/ND, Positive BS Ext - No pedal edema. Negative Homans sign Neuro - Alert and appropriate Skin - Warm and dry Objective Data Vital Signs Vital Signs: Vital Signs - 24 hr 02/05/25 15:22 02/05/25 16:00 02/05/25 16:00 Temperature 99.1 F 99.1 F Pulse Rate 73 88 Respiratory Rate 18 Blood Pressure 153/83 H Pulse Oximetry 95 Oxygen Delivery Oxygen Flow Rate 02/05/25 20:00 02/05/25 20:00 02/05/25 20:11 Temperature 97.8 F Pulse Rate 87 98 Respiratory Rate 28 H Blood Pressure 133/85 Pulse Oximetry 97 96 Oxygen Delivery Nasal Cannula Oxygen Flow Rate 3 02/06/25 00:00 02/06/25 00:00 02/06/25 04:00 Temperature 98.5 F Pulse Rate 87 91 94 Respiratory Rate 36 H Blood Pressure 160/90 H Pulse Oximetry 96 Oxygen Delivery Oxygen Flow Rate 02/06/25 04:00 02/06/25 08:00 02/06/25 08:00 Temperature 98.1 F 98.4 F Pulse Rate 100 96 Respiratory Rate 34 H 20 Blood Pressure 156/77 H 151/90 H Pulse Oximetry 96 95 95 Oxygen Delivery Nasal Cannula Oxygen Flow Rate 3 02/06/25 08:00 02/06/25 12:00 Temperature 97.4 F L Pulse Rate 99 53 L Respiratory Rate 15 Blood Pressure 148/79 H Pulse Oximetry 94 Oxygen Delivery Oxygen Flow Rate Intake/Output Intake/Output: Intake & Output 02/03/25 02/04/25 02/05/25 02/06/25 23:59 23:59 23:59 23:59 Intake Total 1875 19896 550 Output Total 1175 600 850 500 Balance 700 1390 1686 50 Meds/Results Medications: Active Medications Generic Name Dose Route Start Last Admin Trade Name Freq PRN Reason Stop Dose Admin Acetaminophen 650 mg 02/01/25 14:11 02/06/25 11:18 Acetaminophen 325 Mg Tablet PO 650 mg Q4H PRN Administration Mild Pain (1-3) or Fever Atorvastatin Calcium 20 mg 02/01/25 21:00 02/05/25 20:11 Atorvastatin 20 Mg Tablet PO 20 mg QHS ANGELITO Administration Docusate Sodium 100 mg 02/01/25 14:11 Docusate Sodium 100 Mg Capsule PO BID PRN Constipation Ferrous Sulfate 325 mg 02/02/25 09:00 02/06/25 08:46 Ferrous Sulfate 325 Mg Tablet BY MOUTH 325 mg DAILY ANGELITO Administration Fluticasone Propionate 2 spray 02/01/25 20:02 Fluticasone Propionate 0.05% Na Spr 16 Gm Btl (*Bkc) NASAL QHS PRN ALLERGIES Guaifenesin 1,200 mg 02/04/25 09:00 02/06/25 08:46 Guaifenesin 12 Hr 600 Mg Tabcr PO 1,200 mg Q12HR ANGELITO Administration Piperacillin Sod/Tazobactam 50 mls @ 100 mls/hr 02/01/25 20:00 02/06/25 12:59 Sod 3.375 gm/ Sodium Chloride IVPB 100 mls/hr Q6H ANGELITO Administration Vancomycin HCl 2,000 mg in 500 mls @ 250 mls/hr 02/04/25 16:00 02/06/25 04:08 Vancomycin 2,000 Mg/Ns 500 Ml IVPB 250 mls/hr Q12H ANGELITO Administration Loratadine 10 mg 02/01/25 20:02 Loratadine 10 Mg Tablet PO DAILY PRN Allergic Symptoms Losartan Potassium 50 mg 02/02/25 09:00 02/06/25 08:46 Losartan Potassium 50 Mg Tablet PO 50 mg DAILY ANGELITO Administration Mirabegron 50 mg 02/02/25 09:00 02/06/25 08:46 Mirabegron 50 Mg Er Tablet PO 50 mg DAILY ANGELITO Administration Neomycin/Polymyxin/Bacitracin 1 applic 02/02/25 11:37 Neomycin/Polymyxin/Bacitracin Ointment 15 Gm Tube TOPICAL PRN PRN with dressing changes Ondansetron HCl 4 mg 02/02/25 14:59 02/06/25 12:58 Ondansetron Inj 4 Mg/2 Ml Vial IV PUSH 4 mg Q6H PRN Administration Nausea And Vomiting Rivaroxaban 20 mg 02/02/25 09:00 Rivaroxaban 20 Mg Tablet PO On Hold: 02/02/25 09:00 DAILY [facility] Comment: hold of bone marrow biopsy Tamsulosin HCl 0.4 mg 02/02/25 09:00 02/06/25 08:46 Tamsulosin Hcl 0.4 Mg Capsule PO 0.4 mg DAILY ANGELITO Administration Radiology Results: ITS Impressions Chest X-Ray 02/01/25 12:56 IMPRESSION: 1. No acute cardiopulmonary findings. Biopsy,Fluoroscopy Guided 02/04/25 12:58 IMPRESSION: 1. Successful fluoroscopic guided bone marrow aspiration. 2. Successful fluoroscopic guided bone marrow biopsy. Labs Labs: Laboratory Results - last 24 hr 02/06/25 02/06/25 03:05 10:17 WBC 5.4 RBC 2.85 L Hgb 9.8 L Hct 28.2 L MCV 98.9 MCH 34.4 H MCHC 34.8 RDW 15.2 H Plt Count 74 L MPV 11.4 H Immature Gran % (Auto) Not Reportable Neut % (Auto) Not Reportable Lymph % (Auto) Not Reportable [place] % (Auto) Not Reportable Eos % (Auto) Not Reportable Baso % (Auto) Not Reportable Lymph # (Auto) Not Reportable [place] # (Auto) Not Reportable Eos # (Auto) Not Reportable Baso # (Auto) Not Reportable Abs Immat Gran (auto) Not Reportable Absolute Neuts (auto) Not Reportable Absolute Nucleated RBC Not Reportable Total Counted 100 Neutrophils % (Manual) 16 L Band Neutrophils % Not Reportable Lymphocytes % (Manual) 23.0 Monocytes % (Manual) 61 H Nucleated RBC % Not Reportable Abs Lymphs (Manual) 1.24 Abs Monocytes (Manual) 3.29 H Atypical Lymphocytes Present Platelet Estimate Decreased % Immature Plt Fraction 6.4 Anisocytosis 1+ Microcytosis 1+ Jadyn Cells 1+ Schistocytes None seen Sodium 126 L Potassium 3.3 L Chloride 98 Carbon Dioxide 21 L Anion Gap 7 BUN 13 Creatinine 0.73 Estim Creat Clear Calc 75 Estimated GFR > 60 Glucose 118 H Calcium 7.7 L Phosphorus 2.7 Magnesium 2.1 Total Bilirubin 1.7 H AST 44 ALT 31 Alkaline Phosphatase 238 H Total Protein 6.1 L Albumin 3.1 L Ur Random Sodium 6 Ur Random Urea 721 Urine Creatinine 94.1 Vancomycin Trough 15.3
[2025-02-07] VITALS: BP 153/53; PULSE 103; PULSE 90; RESP 40; TEMP 36.9; O2SAT 94
[2025-02-07] MEDS: MORPHINE SULFATE (*CRX) 4 MG/ML INJ 2 MG IV PUSH (02:10)
[2025-02-07 04:00] VITALS: BP 153/53; PULSE 90; RESP 40; TEMP 36.9; O2SAT 94
[2025-02-07 08:00] VITALS: BP 150/69; PULSE 93; RESP 32; TEMP 36.7; O2SAT 90
--- NOTE | 2025-02-07 09:49 | P.PNONC_ITS ---
Subjective Date/time seen: 02/07/25 09:49 Interval history: 02/01/25: Augie Bunn is a 79 year old male known to Dr. Lozano with a history of iron deficiency and who presented to the ER today with weakeness and nocturnal diaphoresis. Labs show pancytopenia which is a marked difference to the labs from 09/2024 when last seen by Dr. Lozano. He had an appt to be seen by Hematology next week. Labs: (10/01/24): WBC 4.5, Hgb 14.4, Hct 43.4, MCV 91.4, Plt 150 (01/27/25): WBC 1.9, ANC 0.2, lymph 0.74, mono 1.0, Hgb 11.9, Hct 25.5, MCV 102.0, Plt 71. Influenza A/B negative. COVID negative. (01/28/25): WBC 1.3, Hgb 11.5, Hct 34.1, MCV 100.9, Plt 60, ferritin 593 (02/01/25); WBC 1.2, ANC 0.2, lymph 0.52, mono 0.5, Hgb 11.1, Hct 32.5,MCV 99.1, Plt 76 CT CAP (01/28/25): 1. Borderline pathologic size paratracheal lymph nodes but no bulky lymphade nopathy or masses seen within the chest abdomen or pelvis. 2. No focal acute process. Peripheral smear evaluated by me on 02/01/25- markedly decreased neutrophils with scattered toxic granulations. No hypersegmented neutrophils. No blasts. Occasional reactive lymphocyte. No schistocytes. Some rouleaux formation. No plt clumping. Occasional large platelets. NO evidence of acute leukemia via this slide. Will await lab and BM results. 02/02/25: Patient feeling generally ill which is unchanged. No fever. Fair appetite. He vomited alittle this morning. 02/03/25: Patient feeling about the same although he dose report sleeping better and having no wierd dreams like he has at home. No fever or chills. No SOB. No CP. Unfortunately, was told that the patient will not be having his BM bx today despite my putting in an order over the weekend. Labs: (02/03/25): WBC 1.3, ANC 0.3, Hgb 9.7, Hct 28.2, Plt 70, BUN 12, crea 0.75, Na 129, PT 18.1, INR 1.5, PTT 36.1, LDH 220, Vitamin B12 >1000, folate >20, iron 50, TIBC 254, iron sat 20%. 02/04/25: Patient going stir crazy. He wants to move around and go home. BM bx scheduled for today. He is having no fever or chills. No SOB or CP. No complaints. Labs: (02/04/25): WBC 2.6, ANC 0.3, Hgb 9.8, Hct 29.2, MCV 100.7, Plt 81, Na 128, BUN 12, crea 0.4. Called by Dr. Yasmin Cano, pathologist at [facility]. 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 No APL. 02/05/25: Patient has been accepted to [facility] but is awaiting a bed. This morning, he decided that he did not want therapy and wanted to go home. We talked. In my opinion, life expectancy without treatment is 1-3 weeks With treatment, 10% one year survival given his age. However, I believe a decision concerning treatment should be made AFTER discussion with the physician who specializes in this treatment at [facility]. I recommend he get transferred and then hold a discussion with the oncologist at that facility, with is entire family present, after which a decision concerning treatment can be made. If after the discussion he and his family decide against treatment, he can be discharged with Hospice. He voiced understanding and agreed. All questions were answered to his satisfaction. Thank you. 02/06/25: Patient doing worse. Sweating. Increasing fatigue. Bone aches have begun over sternum and upper arms/shoulders. Tylenol helps somewhat Still awaiting transfer to [facility]; he has been accepted there but the bed situation is the problem. Would [facility] be an option? Daughter present. Labs: (02/06/25): WBC 5.4, 16% segs, Hgb 9.8, Hct 28.2, Plt 74. Will review smear. I suspect WBC is increasing due to blast count. This patient will not make it if he does not get transferred soon. Spoke with [facility], Dr. Milton Alonso. He will make this patient a priority transfer. They are waiting for discharges today. 02/07/25: Since seen yesterday the patient and his family have decided on Hospice. We talked about the survival statistics with and without treatment as well as side effects of chemotherapy. I understand his decision and agree. He wants to go home with Hospice. We discussed at length the services that Hospice can provide for the patient but also for children/grandchildren. I encouraged them to discuss everything with Hospice. Of note, his daughter and son-in-law are currently present Nothing further to add. Please call if questions arise. Thank you. Objective Data Vital Signs Vital Signs: Vital Signs - 24 hr 02/06/25 12:00 02/06/25 12:00 02/06/25 16:00 Temperature 36.3 C L 35.9 C L Pulse Rate 53 L 97 101 H Respiratory Rate 15 17 Blood Pressure 148/79 H 144/68 H Pulse Oximetry 94 95 Oxygen Delivery Oxygen Flow Rate 02/06/25 16:00 02/06/25 20:00 02/06/25 20:00 Temperature 37.0 C Pulse Rate 98 106 H 99 Respiratory Rate 28 H Blood Pressure 135/87 Pulse Oximetry 94 Oxygen Delivery Oxygen Flow Rate 02/06/25 21:57 02/07/25 00:00 02/07/25 00:00 Temperature 36.9 C Pulse Rate 103 H 90 Respiratory Rate 40 H Blood Pressure 153/53 H Pulse Oximetry 94 94 Oxygen Delivery Nasal Cannula Oxygen Flow Rate 3 02/07/25 04:00 02/07/25 04:00 02/07/25 08:00 Temperature 36.9 C 36.7 C Pulse Rate 90 90 93 Respiratory Rate 40 H 32 H Blood Pressure 153/53 H 150/69 H Pulse Oximetry 94 90 Oxygen Delivery Oxygen Flow Rate Intake/Output Intake/Output: Intake & Output 02/04/25 02/05/25 02/06/25 02/07/25 23:59 23:59 23:59 23:59 Intake Total 1989 2536 1030 0 Output Total 600 850 700 500 Balance 1390 1686 330 -500 Meds/Results Medications: Active Medications Generic Name Dose Route Start Last Admin Trade Name Freq PRN Reason Stop Dose Admin Acetaminophen 650 mg 02/01/25 14:11 02/06/25 11:18 Acetaminophen 325 Mg Tablet PO 650 mg Q4H PRN Administration Mild Pain (1-3) or Fever Hydrocodone Bitart/Acetaminophen 1 tab 02/06/25 14:29 Hydrocodone/Acetaminophen (*Crx) 5-325 Mg Tablet PO Q6H PRN Pain Rated 4-6 Docusate Sodium 100 mg 02/01/25 14:11 Docusate Sodium 100 Mg Capsule PO BID PRN Constipation Fluticasone Propionate 2 spray 02/01/25 20:02 Fluticasone Propionate 0.05% Na Spr 16 Gm Btl (*Bkc) NASAL QHS PRN ALLERGIES Guaifenesin 1,200 mg 02/04/25 09:00 02/06/25 21:57 Guaifenesin 12 Hr 600 Mg Tabcr PO 1,200 mg Q12HR ANGELITO Administration Loratadine 10 mg 02/01/25 20:02 Loratadine 10 Mg Tablet PO DAILY PRN Allergic Symptoms Lorazepam 1 mg 02/06/25 14:29 Lorazepam (*Crx) 1 Mg Tablet PO Q4H PRN Anxiety Losartan Potassium 50 mg 02/02/25 09:00 02/06/25 08:46 Losartan Potassium 50 Mg Tablet PO 50 mg DAILY ANGELITO Administration Mirabegron 50 mg 02/02/25 09:00 02/06/25 08:46 Mirabegron 50 Mg Er Tablet PO 50 mg DAILY ANGELITO Administration Morphine Sulfate 2 mg 02/06/25 14:29 02/07/25 02:10 Morphine Sulfate (*Crx) 4 Mg/Ml Inj IV PUSH 2 mg Q4H PRN Administration Pain Rated 7-10 Neomycin/Polymyxin/Bacitracin 1 applic 02/02/25 11:37 Neomycin/Polymyxin/Bacitracin Ointment 15 Gm Tube TOPICAL PRN PRN with dressing changes Ondansetron HCl 4 mg 02/02/25 14:59 02/06/25 12:58 Ondansetron Inj 4 Mg/2 Ml Vial IV PUSH 4 mg Q6H PRN Administration Nausea And Vomiting Tamsulosin HCl 0.4 mg 02/02/25 09:00 02/06/25 08:46 Tamsulosin Hcl 0.4 Mg Capsule PO 0.4 mg DAILY ANGELITO Administration Radiology Results: ITS Impressions Chest X-Ray 02/01/25 12:56 IMPRESSION: 1. No acute cardiopulmonary findings. Biopsy,Fluoroscopy Guided 02/04/25 12:58 IMPRESSION: 1. Successful fluoroscopic guided bone marrow aspiration. 2. Successful fluoroscopic guided bone marrow biopsy. Labs Labs: Laboratory Results - last 24 hr 02/06/25 10:17 Ur Random Sodium 6 Ur Random Urea 721 Urine Creatinine 94.1
[2025-02-07 10:00] VITALS: BP 116/89; PULSE 90; O2SAT 91
[2025-02-07] MEDS: ACETAMINOPHEN 325 MG TABLET 650 MG PO (10:03)
[2025-02-07] MEDS: guaiFENesin 12 HR 600 MG TABCR 1200 MG PO (10:03)
[2025-02-07] MEDS: MIRABEGRON 50 MG ER TABLET PO (10:03)
[2025-02-07] MEDS: TAMSULOSIN HCL 0.4 MG CAPSULE PO (10:03)
[2025-02-07] MEDS: LOSARTAN POTASSIUM 50 MG TABLET PO (10:04)
[2025-02-07 12:00] VITALS: BP 149/70; PULSE 93; RESP 36; TEMP 36.7; O2SAT 93
--- NOTE | 2025-02-07 13:28 | P.DS_ITS ---
DS: Admitting Diagnosis Discharge Date 02/07/25 Admitting Diagnosis Weakness DS: Discharge Diagnosis Discharge Diagnosis (1) Leukemia: Code(s): C95.90 - Leukemia, unspecified not having achieved remission Status: Acute (2) Neutropenic fever: Code(s): D70.9 - Neutropenia, unspecified; R50.81 - Fever presenting with conditions classified elsewhere Status: Acute (3) Pancytopenia: Code(s): D61.818 - Other pancytopenia Status: Acute (4) Essential (primary) hypertension: Code(s): I10 - Essential (primary) hypertension Status: Acute (5) CAD in [place] artery: Code(s): I25.10 - Atherosclerotic heart disease of [place] coronary artery without angina pectoris Status: Acute (6) Atrial fibrillation: Qualifiers: Atrial fibrillation type: longstanding persistent Qualified Code(s): I48.11 - Longstanding persistent atrial fibrillation Code(s): I48.91 - Unspecified atrial fibrillation Status: Acute (7) BPH (benign prostatic hyperplasia): Qualifiers: Lower urinary tract symptom presence: unspecified whether lower urinary tract symptoms present Qualified Code(s): N40.0 - Benign prostatic hyperplasia without lower urinary tract symptoms Code(s): N40.0 - Benign prostatic hyperplasia without lower urinary tract symptoms Status: Acute DS: Summary Hospital Course Reason for hospitalization: 79yo male with CAD/CABG, AFib, and HTN who presents the hospital with weakness, malaise and diaphoresis. Please see H&P for details. Hospital Course: Patient presents to the ER with weakness generalized. Labs showed pancytopenia. CT abdomen pelvis with borderline pathologic sized paratracheal lymph nodes but no bulky lymphadenopathy or masses seen in the chest, abdomen or pelvis. Oncology was consulted. Bone marrow biopsy performed. Preliminary path showing acute leukemia. The plan was for transfer to [facility] but patient now refusing transfer and wanting to proceed with hospice care. Long discussion about what hospice entails and he was agreeable. Family in the room are supportive. Hospice consulted and appropriate arrangements made. The patient was able to be disch arged home on 02/07/25 on hospice. Status at Discharge Cognitive/behavioral status at discharge: stable Time Spent with Patient Time attestation: Total time spent providing and/or coordinating discharge services: 34 minutes Time spent: Greater than 30 minutes Exam Narrative: AF 98.1 116/89 90 32 91% 4L Gen - NARD sitting up in bed Chest -clear anteriorly. mildly tachypneic CV - RRR S1/S2 Abd - Soft, NT/ND, Positive BS Ext - trace pedal edema. Neuro - Alert and appropriate Skin - Warm and dry DS: Data Data Completed and Pending Pending studies at discharge: Pending at discharge 02/02/25 11:37 Bone Marrow [PTH] Routine Labs on day of discharge: Preliminary micro results at discharge 02/01/25 14:11 Blood Culture - Preliminary Blood 02/01/25 14:11 Blood Culture - Preliminary Blood Discharge Plan Discharge Attending physician on discharge: Darrick Tran Consulting providers: Sheila Guillen Discharging Clinician: Darrick Tran Anticipated Discharge Date/Time: 02/07/25 13:34 Patient Disposition: Hospice - Home Activity: as tolerated Diet: as tolerated Discharge Instructions: Hospice to follow at home Patient Language: Mongolian Stand Alone Forms: General Discharge Information Discharge Medications: Continued fluticasone propionate [Flonase Allergy Relief] 50 mcg/actuation spray,suspension 2 spray intranasal QHS PRN (Reason: ALLERGIES) Rx Instructions: administer into each nostril Myrbetriq 50 mg tablet extended release 24 hr 50 mg PO DAILY diclofenac sodium [Voltaren Arthritis Pain] 1 % gel 2 g topical DAILY PRN (Reason: arthritis) Rx Instructions: apply to single elbow, wrist or hand; for hand includes palm/fingers/back of hand Using on right knee acetaminophen 325 mg Tablet 650 mg PO QAM tamsulosin [Flomax] 0.4 mg capsule 0.4 mg PO DAILY Qty: 90 1RF losartan 50 mg tablet 50 mg PO DAILY Qty: 90 1RF Discontinued Xarelto 20 mg tablet 20 mg PO DAILY Rx Instructions: must administer with evening meal omega-3 fatty acids 1,000 mg capsule 1,200 mg PO DAILY multivitamin Tablet 1 tablet PO DAILY [facility] 750 mg-100 mg- 1.65 mg-108 mg tablet 1 tablet PO DAILY potassium citrate 99 mg capsule 99 mg PO DAILY cholecalciferol (vitamin D3) 125 mcg (5,000 unit) tablet 125 mcg PO DAILY B-complex with vitamin C Capsule 1 cap PO DAILY ferrous sulfate [Feosol] 325 mg (65 mg iron) tablet 325 mg PO DAILY loratadine [Claritin] 10 mg tablet 10 mg PO DAILY PRN (Reason: allergic symptoms) atorvastatin 20 mg tablet 20 mg PO QHS Qty: 90 1RF Date of admission: 02/01/25 13:27 Primary Care Provider: Juan Read Admitting Provider: Ezekiel Mendoza Attending physician on admission: Ezekiel Mendoza Condition: Stable Hospitalist MIPS Heart Failure (Exclusion) Patient has history of Heart Transplant or Left Ventricular Assistive Device?: No IF YES, STOP HERE Heart Failure (Qualifier) Patient has current or prior documentation of LVEF less than or equal to 40%, or mod/servere depressed LVSF?: No IF NO, STOP HERE
== END 2025-02-07 17:35 | disposition hospice, home (50) | DRG 835 ==
LOC: ANHED 12:05 → ANHIMU 14:02 → ANH3MEDSUR 02-03 21:39
PROVIDERS: Emergency Medicine; Internal Medicine; Internal Medicine Hematology & Oncology; Nurse Practitioner; Nurse Practitioner Gerontology; Radiology Diagnostic Radiology; Admitting Provider Student in an Organized Health Care Education/Training Program; Emergency Provider Student in an Organized Health Care Education/Training Program; PCP Family Medicine; Visit Provider Internal Medicine
PROC: 079T3ZX Drainage of Bone Marrow, Percutaneous Approach, Diagnostic (ICD-10-PCS; principal; 2025-02-04 09:30)
DX: C92.00 Acute myeloblastic leukemia, not having achieved remission (principal); D61.818 Other pancytopenia; E87.1 Hypo-osmolality and hyponatremia; I48.20 Chronic atrial fibrillation, unspecified; D70.9 Neutropenia, unspecified; R50.81 Fever presenting with conditions classified elsewhere; D50.9 Iron deficiency anemia, unspecified; I25.10 Atherosclerotic heart disease of native coronary artery without angina pectoris; I48.91 Unspecified atrial fibrillation; E78.5 Hyperlipidemia, unspecified; I10 Essential (primary) hypertension; R73.03 Prediabetes; N40.0 Benign prostatic hyperplasia without lower urinary tract symptoms; I87.2 Venous insufficiency (chronic) (peripheral); Z20.822 Contact with and (suspected) exposure to COVID-19; Z51.5 Encounter for palliative care; Z79.01 Long term (current) use of anticoagulants; Z87.891 Personal history of nicotine dependence
CPT/HCPCS: 36415; 38222; 71046; 80048; 80053; 80202; 82570; 82607; 82746; 83010; 83540; 83550; 83605; 83615; 83735; 84100; 84300; 84540; 85014; 85018; 85025; 85055; 85610; 85730; 86880; 87040; 87636; 87641; 88305; 88311; 88313; 99285; A9270; J2250; J2270; J2405; J2543; J3010; J3373; J7030; J7050